=== PATIENT | male | born 1950 | race Caucasian/White ===

== ENCOUNTER 2020-02-25 09:44 | Outpatient (CLI) | payer MEDICARE, OTHER, SELFPAY ==
--- NOTE | 2020-02-25 09:45 | ECG_ITS ---
Measurements Intervals [place] Rate: 78 P: 53 AL: 180 QRS: 28 QRSD: 97 T: 36 QT: 387 QTc: 442 Interpretive Statements SINUS RHYTHM NORMAL ECG Electronically Signed On 02-25-2020 11:12:34 CDT by Riki Pratt D.O.
[2020-02-25 11:02] LABS: Blood Urea Nitrogen 24 mg/dL (9-20); Calcium 9.3 mg/dL (8.4-10.2); Carbon Dioxide 29 mmol/L (22-30); Chloride 100 mmol/L (98-107); Estimated Glomerular Filt Rate 60; Glucose 222 mg/dL (75-110); Potassium 3.6 mmol/L (3.4-5.0); Sodium 139 mmol/L (137-145)
== END 2020-02-25 09:45 | disposition home or self-care (01) ==
LOC: ANHSURGERY 09:45
PROVIDERS: Anesthesiology; PCP Family Medicine; Visit Provider Otolaryngology
DX: Z01.818 Encounter for other preprocedural examination (principal); Z79.899 Other long term (current) drug therapy; I10 Essential (primary) hypertension
CPT/HCPCS: 36415; 80048; 93005

== ENCOUNTER 2020-02-26 00:34 | Outpatient (CLI) | payer MEDICARE, OTHER, SELFPAY ==
[2020-02-26 18:05] LABS: SARS-CoV-2 RNA PCR Negative
== END 2020-02-26 00:35 | disposition home or self-care (01) ==
LOC: ANHCOVIDDT 00:36
PROVIDERS: PCP Family Medicine; Visit Provider Otolaryngology
DX: Z01.818 Encounter for other preprocedural examination (principal); Z11.59 Encounter for screening for other viral diseases
CPT/HCPCS: 87635; C9803; U0003

== ENCOUNTER 2020-02-29 03:42 | Day surgery (SDC) | payer MEDICARE, OTHER, SELFPAY ==
[2020-02-29] VITALS (11 sets, daily range): BP systolic 145–175; BP diastolic 78–102; PULSE 53–71; RESP 13–18; TEMP 36.2–36.9; O2SAT 93–99
[2020-02-29] MEDS: OXYMETAZOLINE HCL 0.05% NAS 15 ML BTL (*BKC) 1 SPRAY NASAL (11:25)
[2020-02-29] MEDS: ACETAMINOPHEN 500 MG TABLET 1000 MG PO (11:25)
[2020-02-29] MEDS: LACTATED RINGERS 1,000 ML 30 ML IV CONT ×2 (11:30→15:13)
--- NOTE | 2020-02-29 11:37 | WPDANESEPPF ---
Anes - Initial Pre Proc Eval Procedure: Operation Date: 02/29/20 13:00 Proposed Procedures p Bilateral Frontal Sinusotomy, Bilateral Ethmoidectomy, Bilateral Maxillary Antrostomy, Bilateral Sphenoidotomy, Bilateral Turbinate Reduction With Fusion Protocol - Raymond Medrano MD s Bilateral Septoplasty - Raymond Medrano MD Date/Time: 02/29/20 11:37 Surgeon: Raymond Medrano MD Pre Op Diagnosis: Chronic Sinusitis, Deviated Sinustitis Patient Data Age: 69 Gender: M Height: Weight: Allergies Allergy/AdvReac Type Severity Reaction Status Date / Time strawberry AdvReac Unknown VOMITING Verified 02/24/20 13:44 latex AdvReac Redness of Verified 02/24/20 13:44 Skin Home Medications Medication Instructions Recorded Confirmed Type hydrochlorothiazide 25 mg DAILY 08/11/19 02/24/20 History aspirin [Aspir-81] 81 mg PO DAILY 02/24/20 02/24/20 History cholecalciferol (vitamin D3) 250 mcg PO DAILY 02/24/20 02/24/20 History lisinopril 20 mg PO DAILY 02/24/20 02/24/20 History [id number] acid-lutein [Centrum 1 tablet PO DAILY 02/24/20 02/24/20 History Silver] Patient hx anesthesia problems: none Family hx anesthesia problems: none PMFSH Past Medical History Medical History (Updated 08/27/19 @ 00:00 by Phillip Salinas) Amputation toe Partial left first Arthritis Bilateral cataracts Glaucoma HTN (hypertension) Left ACL tear Left rotator cuff tear Rectal polyp Spinal stenosis Tear of left meniscus as current injury Surgical History Surgical History (Updated 08/25/19 @ 22:35 by Darrin Amezcua) H/O bilateral cataract extraction H/O colonoscopy H/O lateral meniscus repair of left knee History of repair of anterior cruciate ligament of left knee History of surgical procedure on eye proper using laser Bilateral for glaucoma S/P left rotator cuff repair Family History Family History (Updated 04/15/14 @ 07:13 by DOCTOR UNKNOWN) Father Hypertension Family history of throat cancer Social History Social History (Updated 08/25/19 @ 22:38 by Darrin Amezcua) Smoking status: Former smoker Additional smoking assessment comments: 1 1/2PK/DAY FROM AGE 12-20 Alcohol intake: current Living arrangements: with family Gender identity (if verbalized by the patient): Male Spiritual care concerns: No Anes - Eval Final PreProcedure Day of Procedure 02/29/20 11:37 Patient weight: obese Heart: regular rate and rhythm Lungs: clear to auscultation Airway: Mallampati scale class II Neurological: alert and oriented Last oral intake: >/= 8 hours ASA classification: III Emergent: no Anesthetic plan: proceed Anesthesia type and monitoring: general ETT and standard monitoring Informed Consent: The patient's anesthetic plan and its attendant risks and benefits were discussed with the patient/family/POA. Questions were solicited and answers provided to the satisfaction of the patient/family/POA.
--- NOTE | 2020-02-29 13:19 | PM.IMHP ---
H&P: HPI History of Present Illness Chief complaint: Chronic Sinusitis, Deviated Sinustitis Narrative: Chapo Song is a 69 year old male with chronic sinusitis and nasal polyposos Review of Systems Review of Systems: All systems reviewed & are unremarkable except as noted in HPI and below PMFSH Past Medical History Medical History Amputation toe Partial left first Arthritis Bilateral cataracts Glaucoma HTN (hypertension) Left ACL tear Left rotator cuff tear Rectal polyp Spinal stenosis Tear of left meniscus as current injury Surgical History Surgical History H/O bilateral cataract extraction H/O colonoscopy H/O lateral meniscus repair of left knee History of repair of anterior cruciate ligament of left knee History of surgical procedure on eye proper using laser Bilateral for glaucoma S/P left rotator cuff repair Family History Family History Father Hypertension Family history of throat cancer Social History Social History Smoking status: Former smoker Additional smoking assessment comments: 1 1/2PK/DAY FROM AGE 14-20 Alcohol intake: current Living arrangements: with family Gender identity (if verbalized by the patient): Male Spiritual care concerns: No Meds Home Medications and Allergies Home Medications Medication Instructions Recorded Confirmed Type hydrochlorothiazide 25 mg DAILY 08/11/19 02/29/20 History aspirin [Aspir-81] 81 mg PO DAILY 02/24/20 02/29/20 History cholecalciferol (vitamin D3) 250 mcg PO DAILY 02/24/20 02/29/20 History lisinopril 20 mg PO DAILY 02/24/20 02/29/20 History [id number] acid-lutein [Centrum 1 tablet PO DAILY 02/24/20 02/29/20 History Silver] Allergies Allergy/AdvReac Type Severity Reaction Status Date / Time strawberry AdvReac Unknown VOMITING Verified 02/29/20 11:39 latex AdvReac Redness of Verified 02/29/20 11:39 Skin Vital Signs Vital Signs - 24 hr 02/29/20 11:35 Temperature 36.9 C Pulse Rate 69 Respiratory Rate 18 Blood Pressure 145/78 H Pulse Oximetry 96 Exam Narrative: Exam Narrative: chronic sinusitis, nasal polyposis Assessment and Plan Assessment and plan (1) Chronic sinusitis: Code(s): J32.9 - Chronic sinusitis, unspecified Status: Acute Assessment and Plan: Chronic sinusitis, plan for bilateral frontal, ethmoid, sphenoid and maxillary surgery. Septoplasty, turbinoplasty, under image guidance. Refer to outpatient H&P for full details.
[2020-02-29] MEDS: ceFAZolin 2 GM/D5W 50 ML 2 GM/50 ML BAG IVPB (13:41)
[2020-02-29] MEDS: LIDO 1%/EPINEPHRINE 1:100,000 20 ML VIAL 6 ML INFILTRATE (13:52)
--- NOTE | 2020-02-29 15:12 | PM.PROC ---
Procedure Note - Detailed Date of procedure: 02/29/20 Pre-op diagnosis: Chronic Sinusitis, Deviated Sinustitis Chronic sinusitis, nasal polyposis and turbinate hypertrophy Post-op diagnosis: same Procedure performed: Bilateral maxillary antrostomy, total ethmoidectomy, sphenoidotomy, frontal sinusotomy, right sumit bullosa, bilateral turbinoplasty Description of procedure: On the date of procedure the patient was met in the preoperative area and risk and benefits of the procedure reviewed with the patient as documented in the H&P and they elected to proceed with surgery. Patient was brought back to the operating room by the anesthesia team and underwent general endotracheal anesthesia. Once an adequate plane of anesthesia was obtained a timeout was performed to assure the patient identification the patient here to be performed were correct. They were.The patient was then prepped and draped in the normal fashion for endoscopic sinus surgery. The diffusion image guidance system was calibrated and used for the entire case. Afrin-soaked pledgets were placed in the nasal cavities bilaterally. The entire case was performed under endoscopic visualization. Nasal endoscopy was performed at the beginning of the case. 1% lidocaine with 1:100,000 epinephrine was then injected into the root of the middle turbinate and lateral nasal wall. Attention was first directed towards the left side. The middle turbinate was medialized and the osteomeatal complex was identified with a valerie probe. Using a 90 degree backbiter, the uncinate process was reflected anteriorly and removed using a combination of sharp and powered dissection. The maxillary antrostomy was then created and widened by identifying the natural ostia and opening the sinus with straight tapan-cut forceps, backbiter, and microdebrider. Massive polyp tissue encountered was removed with microdebrider, involving the middle turbinate, superior turbinate and extending to the nasopharynx. Polyp tissue encountered within the maxillary sinus. Continuing with the microdebrider, the anterior ethmoid bulla was opened. Careful dissection was carried out posteriorly, through the basal lamella and posterior ethmoid cells until the sphenoid rostrum was identified. A Jonathan suction bluntly identified the sphenoid os and the opening was widened with microdebrider and mushroom punch to 5mm. Polyp disease was removed from the ethmoid and sphenoid. Using an image guided curved suction as well as J-curette, the posterior most ethmoid cell was identified and the ethmoids were bluntly fractured and dissected from posterior to anterior along the base of the skull. The remaining bone fragments were removed with appropriate curved instruments and microdebrider. The frontal recess was identified, with gross polyp disease obstructing and removed. Image guided seeker confirmed proper identification of the frontal recess. Next, The right maxillary antrostomy, ethmoidectomy, sphenoidotomy and frontal sinusotomy were carried out in identical fashion with findings of gross polyp disease throughout. No clinical evidence of CSF throughout the case. With all sinuses opened and no remaining polyp disease appreciated, nasopore packing was placed in the ethmoid acvities bilaterally. Hemostasis was ensured. Lastly, the bilateral inferior turbiantes were reduced submucosally using 2mm microdebrider and then outfractured with a sayer elevator. This significantly opened the airway. At this point, the procedure was concluded. Care the patient was transferred back to the anesthesia team and the patient was awoke in the operating room and transferred back to the PACU in stable condition. Raymond Medrano M.D. Anesthesia: GETA Surgeon: Raymond Medrano MD Estimated blood loss (mL): 100 Drains: No Packing: Yes (bilateral nasopore) Pathology: yes Complications: No immediate complications Condition: stable Disposition: PACU Findings: Left worse than right
--- NOTE | 2020-02-29 17:26 | SUR.PHASEII ---
Anesthesia aware of elevated BP per [facility].
== END 2020-02-29 17:32 | disposition home or self-care (01) ==
PROVIDERS: PCP Family Medicine; Visit Provider Otolaryngology
PROC: (CPT 31256; principal; 2020-02-29 13:00)
DX: J32.9 Chronic sinusitis, unspecified (principal); J34.3 Hypertrophy of nasal turbinates; D14.0 Benign neoplasm of middle ear, nasal cavity and accessory sinuses; I10 Essential (primary) hypertension; H40.9 Unspecified glaucoma; Z79.82 Long term (current) use of aspirin; Z87.891 Personal history of nicotine dependence; E66.9 Obesity, unspecified
CPT/HCPCS: 31256; 31257; 31253; 30140; 61782; 31240; 88305; A9270; J0330; J0461; J0690; J1100; J2250; J2370; J2405; J2704; J3010; J7120

== ENCOUNTER 2020-11-20 03:53 | Emergency (ER) | payer MEDICARE, OTHER, SELFPAY ==
--- NOTE | ~2020-11-20 | CT_ITS ---
EXAMINATION: CT abdomen pelvis wo con DATE: 11/20/2020 06:29 INDICATION: Left flank pain TECHNIQUE: Computed tomography (CT) of the abdomen and pelvis was performed without intravenous contr ast. Automated exposure control and iterative reconstruction technique were employed. Exam dose: 146 1.03 mGy-cm total exam DLP. COMPARISON: 08/25/[address] abdomen pelvis FINDINGS: There is mild atelectasis at the lung bases. Normal heart size. No pericardial or pleural effusion. The liver, gallbladder, spleen, pancreas, and adrenal glands are unremarkable on this limited noncont rast examination. 4 mm distal left ureteral calculus is causing moderate left hydroureteronephrosis as well as left per inephric and periureteral stranding. Mild nonobstructive left nephrolithiasis. No right urinary tract calculus or right-sided hydroureteronephrosis. The urinary bladder is unremark able except for mild diffuse thickening of the urinary bladder wall, likely secondary to prostatomega ly. Mild prostate calcification. Diverticulosis of the sigmoid colon; no CT evidence of diverticulitis. No bowel obstruction, bowel wa ll thickening, pneumatosis or intraperitoneal free air. Normal appendix. There is atherosclerotic calcification of the abdominal aorta and aortic branches but no abdominal ao rtic aneurysm. No intraperitoneal or retroperitoneal or pelvic mass lesion or adenopathy or ascites. Bilateral renal cysts, measuring up to 4.6 cm on the left. Small fat-containing umbilical and left inguinal hernias. IMPRESSION: 4 mm obstructing distal left ureteral calculus with moderate left hydroureteronephrosis Mild nonobstructive left nephrolithiasis Bilateral renal cysts Prostatomegaly with associated thickening of the urinary bladder wall Diverticulosis of the sigmoid colon; no CT evidence of diverticulitis Reviewed, dictated and finalized at [facility]. Reviewed, dictated and finalized at [facility].
[2020-11-20 03:57] VITALS: BP 167/92; PULSE 55; RESP 18; TEMP 35.3; O2SAT 99
[2020-11-20 04:26] LABS: Basophils Absolute Auto 0.1 K/mm3 (0.0-0.1); Basophils Percent Auto 0.8 % (0.2-1.2); Eosinophils Absolute Auto 0.2 K/mm3 (0-0.3); Eosinophils Percent Auto 1.8 % (0-4.4); Hematocrit 43.2 % (42.0-52.0); Hemoglobin 15.1 g/dL (14.0-18.0); Immature Granulocyte Absolute 0.08 K/mm3 (0.00-0.031); Immature Granulocyte Percent A 0.6 % (0-0.5); Lymphocytes Absolute Auto 2.54 K/mm3 (0.9-3.2); Lymphocytes Percent Auto 19.6 % (18.3-44.2); Mean Corpuscular Hemoglobin 33.3 pg (26-34); Mean Corpuscular Volume 95.4 fl (80-100); Mean Platelet Volume 8.5 fl (7.4-10.4); Monocytes Absolute Auto 0.9 K/mm3 (0.1-0.6); Neutrophils Absolute Auto 9.1 K/mm3 (1.3-6.7); Neutrophils Percent Auto 70.2 % (45.5-73.1); Platelet Count Result 204 k/mm3 (150-375); Red Blood Count 4.53 M/mm3 (4.6-6.20); Red Cell Distribution Width 12.4 % (11.5-14.5)
[2020-11-20 04:30] LABS: Add Urine Microscopic? YES; Appearance Urine Cloudy (Clear); Bilirubin Urine Negative (Negative); Blood Urine 3+ (Negative); Color Urine Yellow (Yellow); Glucose Urine UA Negative (Negative); Ketones Urine Negative (Negative); Leukocyte Esterase Ur Negative LEU/UL (Negative); Mucus Urine Few /lpf; Nitrate Urine Negative (Negative); Protein Urine 2+ mg/dL (Negative); RBC Urine >75 /hpf (0-2); Specific Grav Ur 1.024 (1.001-1.035); Squamous Epithelial Cell Urine Rare /hpf (Few); Urobilinogen Urine Negative mg/dL (<2.0); WBC Urine 0-3 /hpf
[2020-11-20 04:39] LABS: Anion Gap 10 mmol/L (8-16); Blood Urea Nitrogen 25 mg/dL (9-20); Calcium 9.7 mg/dL (8.4-10.2); Carbon Dioxide 29 mmol/L (22-30); Chloride 102 mmol/L (98-107); Estimated CRCL calculation 56 ml/min; Estimated Glomerular Filt Rate 47; Glucose 186 mg/dL (75-110); Potassium 3.3 mmol/L (3.4-5.0); Sodium 141 mmol/L (137-145)
--- NOTE | 2020-11-20 05:33 | ED.ABDPAIN ---
HPI - Abdominal Pain General Chief Complaint: Abdominal Pain <Kirk York MD - Last Filed: 11/20/20 05:35> Stated Complaint: left flank pain <Kirk York MD - Last Filed: 11/20/20 05:35> Time Seen by Provider: 11/20/20 05:27 <Kirk York MD - Last Filed: 11/20/20 05:35> Source: patient <Kirk York MD - Last Filed: 11/20/20 05:35> Mode of arrival: ambulatory <Kirk York MD - Last Filed: 11/20/20 05:35> Limitations: no limitations <Kirk York MD - Last Filed: 11/20/20 05:35> History of Present Illness HPI narrative: Patient 70 years old white male presents with left flank pain radiating to left lower quadrant started at midnight which is 5 hours ago. Associated with nausea. Patient had similar symptoms secondary to kidney stone on the right side. Patient also reporting frequent urination. Patient denies any fever, chills, vomiting, chest pain or shortness of breath. <Kirk York MD - Last Filed: 11/20/20 05:35> Related Data Home Medications: Home Medications Medication Instructions Recorded Confirmed hydrochlorothiazide 25 mg DAILY 08/11/19 02/29/20 Centrum Silver 1 tablet PO DAILY 02/24/20 02/29/20 aspirin [Aspir-81] 81 mg PO DAILY 02/24/20 02/29/20 cholecalciferol (vitamin D3) 250 mcg PO DAILY 02/24/20 02/29/20 lisinopril 20 mg PO DAILY 02/24/20 02/29/20 atorvastatin 11/20/20 fluticasone propion-salmeterol INHALATION 11/20/20 [Advair Diskus] <MD Noelle Castro Last Filed: 11/20/20 05:35> Allergies/Adverse Reactions: Allergies Allergy/AdvReac Type Severity Reaction Status Date / Time strawberry AdvReac Unknown VOMITING Verified 11/20/20 04:01 latex AdvReac Redness of Verified 11/20/20 04:01 Skin <MD Noelle Castro Last Filed: 11/20/20 05:35> Review of Systems Review of Systems: Narrative: CONSTITUTIONAL: Denies fever, chills, or sweats. EYES: Denies visual changes, redness, or discharge. ENT: Denies rhinorrhea, congestion, sore throat, or otalgia. CARDIOVASCULAR: Denies chest pain, palpitations, or edema. RESPIRATORY: Denies cough or dyspnea. GASTROINTESTINAL: Denies abdominal pain, nausea, vomiting, or diarrhea. GENITOURINARY: Denies dysuria or hematuria. SKIN: Denies rash or itching. MUSCULOSKELETAL: Denies back pain, joint pain, or myalgia. NEUROLOGIC: Denies headache, numbness, or weakness. PSYCHIATRIC: Denies anxiety or depression. <Kirk York MD - Last Filed: 11/20/20 05:35> [facility] Past Medical History Medical History: Medical History (Updated 11/20/20 @ 10:28 by Musa Hillman MD) Amputation toe Partial left first Arthritis Bilateral cataracts Glaucoma HTN (hypertension) Left ACL tear Left rotator cuff tear Rectal polyp Spinal stenosis Tear of left meniscus as current injury <Kirk York MD - Last Filed: 11/20/20 05:35> Surgical History Surgical History: Surgical History H/O bilateral cataract extraction H/O colonoscopy H/O lateral meniscus repair of left knee History of repair of anterior cruciate ligament of left knee History of surgical procedure on eye proper using laser Bilateral for glaucoma S/P left rotator cuff repair <Kirk York MD - Last Filed: 11/20/20 05:35> Family History Family History: Family History Father Hypertension Family history of throat cancer <Kirk York MD - Last Filed: 11/20/20 05:35> Social History Social History: Social History Smoking status: Former smoker Additional smoking assessment comments: 1 1/2PK/DAY FROM AGE [age] Alcohol intake: current Gender identity (if verbalized by the patient): Male Sexual Orientation (if Verbalized by the Patient): Straight or Heterosexual Spiritual care concerns: No <Kirk York MD - Last Filed: 11/20/20 05:35> Ex
[2020-11-20] MEDS: SODIUM CHLORIDE 0.9% IV 1,000 ML 999 ML IV CONT ×2 (05:42→08:03)
[2020-11-20] MEDS: HYDROmorphone HCL INJ (*CRX) 1 MG/ML SYR 0.5 MG IV PUSH ×2 (05:42→06:51)
[2020-11-20] MEDS: ONDANSETRON INJ 4 MG/2 ML VIAL IV PUSH (05:42)
[2020-11-20 06:00] VITALS: BP 154/85; PULSE 60; RESP 18; O2SAT 99
[2020-11-20 06:56] VITALS: BP 147/75; PULSE 58; RESP 18; O2SAT 99
[2020-11-20] MEDS: HYDROmorphone HCL INJ (*CRX) 1 MG/ML SYR IV PUSH (08:03)
[2020-11-20 09:08] VITALS: BP 153/86; PULSE 62; RESP 17; O2SAT 97
[2020-11-20] MEDS: KETOROLAC 30 MG/ML VIAL (*BKC) IV PUSH (09:36)
[2020-11-20 10:37] VITALS: BP 132/78; PULSE 78; RESP 18; O2SAT 99
--- NOTE | 2020-11-20 10:50 | WPDURCON ---
Assessment and Plan Assessment and plan (1) Ureterolithiasis: Code(s): N20.1 - Calculus of ureter Status: Acute Assessment and Plan: 70M with 3 mm left UVJ stone - we discussed either trial of MET or URS/?LL/stent. I told him he has about a 75% chance of passing this stone but that could take days or weeks. we discussed the procedure of URS including stent irritation. toradol has significantly relieved his pain and he wants to try and pass the stone. DC with tamsulosin, strainer, pain meds, and f/u with our office here in 1-2 weeks. discussed return precautions including fever and unrelenting pain. Urology Consult Note HPI Date Seen: 11/20/20 Primary Care Provider: Macarena De Los SantosMD Consult Narrative Narrative: Chapo Song is a 70 year old male who passed a kidney stone in 2018 here with left flank pain. No other significant urologic history. Voids well at baseline. Severe left flank--> groin pain started overnight. Was unable to be controlled in ED until toradol administered. WBC 14, creat 1.5. Vitals okay. CT shows a 3-4 mm left UVJ stone and no other stones; mild hydro. Review of Systems Review of Systems: All systems reviewed & are unremarkable except as noted in HPI and below PMFSH Past Medical History Medical History (Updated 11/20/20 @ 10:28 by Musa Hillman MD) Amputation toe Partial left first Arthritis Bilateral cataracts Glaucoma HTN (hypertension) Left ACL tear Left rotator cuff tear Rectal polyp Spinal stenosis Tear of left meniscus as current injury Surgical History Surgical History H/O bilateral cataract extraction H/O colonoscopy H/O lateral meniscus repair of left knee History of repair of anterior cruciate ligament of left knee History of surgical procedure on eye proper using laser Bilateral for glaucoma S/P left rotator cuff repair Family History Family History Father Hypertension Family history of throat cancer Social History Social History Smoking status: Former smoker Additional smoking assessment comments: 1 1/2PK/DAY FROM AGE 14-20 Alcohol intake: current Gender identity (if verbalized by the patient): Male Sexual Orientation (if Verbalized by the Patient): Straight or Heterosexual Spiritual care concerns: No Meds Home Medications and Allergies Home Medications Medication Instructions Recorded Confirmed Type hydrochlorothiazide 25 mg DAILY 08/11/19 02/29/20 History Centrum Silver 1 tablet PO DAILY 02/24/20 02/29/20 History aspirin [Aspir-81] 81 mg PO DAILY 02/24/20 02/29/20 History cholecalciferol (vitamin D3) 250 mcg PO DAILY 02/24/20 02/29/20 History lisinopril 20 mg PO DAILY 02/24/20 02/29/20 History hydrocodone-acetaminophen 1 tablet PO Q4H PRN #20 tablet 02/29/20 Rx atorvastatin 11/20/20 History fluticasone propion-salmeterol INHALATION 11/20/20 History [Advair Diskus] hydrocodone-acetaminophen 1 tablet PO Q6H PRN #20 tablet 11/20/20 Rx tamsulosin [Flomax] 0.4 mg PO DAILY #7 cap 11/20/20 Rx Allergies Allergy/AdvReac Type Severity Reaction Status Date / Time strawberry AdvReac Unknown VOMITING Verified 11/20/20 04:01 latex AdvReac Redness of Verified 11/20/20 04:01 Skin Vital Signs Vital Signs - 24 hr 11/20/20 03:57 11/20/20 06:00 11/20/20 06:56 Temperature 35.3 C L Pulse Rate 55 L 60 58 L Respiratory Rate 18 18 18 Blood Pressure 167/92 H 154/85 H 147/75 H Pulse Oximetry 99 99 99 11/20/20 09:08 11/20/20 10:37 Temperature Pulse Rate 62 78 Respiratory Rate 17 18 Blood Pressure 153/86 H 132/78 Pulse Oximetry 97 99 Exam Narrative: Exam Narrative: A&O x3, mild distress, cooperative and pleasant, no focal neuro deficits, obese without mass, easy and non labored respirations, no rashes Results Labs CBC & Chem 7: 11/20
== END 2020-11-20 10:41 | disposition home or self-care (01) ==
PROVIDERS: Emergency Medicine; Emergency Provider Family Medicine; PCP Family Medicine
DX: N13.2 Hydronephrosis with renal and ureteral calculous obstruction (principal); M19.90 Unspecified osteoarthritis, unspecified site; H40.9 Unspecified glaucoma; I10 Essential (primary) hypertension; Z87.19 Personal history of other diseases of the digestive system; Z98.42 Cataract extraction status, left eye; Z98.41 Cataract extraction status, right eye; Z89.412 Acquired absence of left great toe; Z87.891 Personal history of nicotine dependence; N28.1 Cyst of kidney, acquired; K57.30 Diverticulosis of large intestine without perforation or abscess without bleeding; N40.0 Benign prostatic hyperplasia without lower urinary tract symptoms; Z87.442 Personal history of urinary calculi; Z79.82 Long term (current) use of aspirin
CPT/HCPCS: 36415; 74176; 80048; 81001; 85025; 96361; 96374; 96375; 96376; 99284; J1170; J1885; J2405; J7030

== ENCOUNTER 2021-12-10 08:48 | Outpatient (CLI) | payer MEDICARE, OTHER, SELFPAY ==
--- NOTE | ~2021-12-10 | MR_ITS ---
EXAMINATION: MR knee RT wo con DATE: 12/10/2021 09:30 INDICATION: Right knee pain TECHNIQUE: Magnetic resonance imaging (MRI) of the right knee was performed without intravenous contr ast. Sequences included coronal PD-weighted FSE, coronal PD-weighted FS FSE, sagittal T2-weighted FS E, sagittal PD-weighted FS FSE and axial PD weighted fat saturated FSE. COMPARISON: None. FINDINGS: Medial compartment: Complex tear involving the posterior body and posterior horn of the medial meniscus which involves shravan th the free edge and inferior articular surface. There is subluxation of a small flap tear at the pos terior body which extends short distance inferiorly into the gutter along the medial margin of the me dial tibial plateau. Shallow chondral surface irregularity along the central weightbearing medial fem oral condyle. Remaining cartilage is normal. Lateral compartment: Lateral meniscus is normal. Small region of partial-thickness chondral fissuring involving up to 50% the cartilage thickness at the junction of the anterior to central weightbearing lateral femoral cond yle. Remaining cartilage is normal. Patellofemoral compartment: Chondral ulceration and deep fissuring at the medial trochlea with minimal underlying cortical irregu larity and small focus of edema-like subarticular signal change. Additional partial thickness chondra l ulceration without degenerative subchondral changes at the lateral trochlea. Patellar cartilage is normal. Ligaments and tendons: Anterior and posterior cruciate ligaments are normal. The fibular collateral ligament is normal. Ther e is mild thickening and mild increased signal of the proximal medial collateral ligament without samuel rounding edema consistent with mild scarring related to chronic sprain. The extensor mechanism is nor mal. The visualized medial and lateral hamstring tendons as well as the iliotibial band are normal. Fluid: Small right knee joint effusion. No loose osteochondral bodies identified. Osseous/other: Bone alignment is normal. No fracture or pathologic marrow replacing process. There are couple small low signal intensity bone islands in the medial femoral condyle. No fracture or pathologic marrow rep lacing process. IMPRESSION: 1. Complex medial meniscal tear. 2. 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 Reviewed, dictated and finalized at [facility]. IMPRESSION: 1. Complex medial meniscal tear. 2. 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
== END 2021-12-10 08:49 | disposition home or self-care (01) ==
LOC: ANHIMG 08:51
PROVIDERS: PCP Family Medicine; Visit Provider Nurse Practitioner
DX: S83.231A Complex tear of medial meniscus, current injury, right knee, initial encounter (principal); X58.XXXA Exposure to other specified factors, initial encounter; M17.11 Unilateral primary osteoarthritis, right knee
CPT/HCPCS: 73721

== ENCOUNTER 2022-01-04 08:02 | Outpatient (CLI) | payer MEDICARE, OTHER, SELFPAY ==
--- NOTE | 2022-01-04 08:17 | ECG_ITS ---
Measurements Intervals [place] Rate: 69 P: 48 WA: 186 QRS: 25 QRSD: 91 T: 36 QT: 401 QTc: 431 Interpretive Statements SINUS RHYTHM BASELINE ARTIFACT- V4-V5 NORMAL ECG Electronically Signed On 01-04-2022 9:24:54 CDT by Riki Pratt D.O.
[2022-01-04 09:06] LABS: Anion Gap 10 mmol/L (8-16); Blood Urea Nitrogen 24 mg/dL (9-20); Calcium 9.2 mg/dL (8.4-10.2); Carbon Dioxide 32 mmol/L (22-30); Chloride 101 mmol/L (98-107); Estimated Glomerular Filt Rate 60; Glucose 168 mg/dL (65-110); Potassium 3.9 mmol/L (3.4-5.0); Sodium 143 mmol/L (137-145)
== END 2022-01-04 08:03 | disposition home or self-care (01) ==
LOC: ANHSURGERY 08:06
PROVIDERS: Anesthesiology; PCP Family Medicine; Visit Provider Orthopaedic Surgery
DX: Z01.818 Encounter for other preprocedural examination (principal); I10 Essential (primary) hypertension
CPT/HCPCS: 36415; 80048; 93005

== ENCOUNTER 2022-01-08 00:35 | Day surgery (SDC) | payer MEDICARE, OTHER, SELFPAY ==
--- NOTE | 2022-01-03 09:45 | PC.NURSE ---
Report to the Outpatient Waiting Room, entrance under the green pavilion located off [facility], at time _0600 on date _01/08/22 . OR Time: __07 . - You and your visitor will be asked a series of questions to screen for COVID 19 for your protection. - Only one visitor is allowed at this time. - The patient visitor is requested to leave or wait in car when not with patient. - A mask is required within the hospital. Patients may have clear liquids (water, carbonated beverages, clear teas, apple juice) until 3 hours prior to surgery with a maximum of 20 ounces. - No food from midnight until time of surgery - Infants may have breast milk until 4 hours before surgery, infant formula 6 hours prior to surgery. - Children will be allowed to drink immediately following surgery. If applicable, please bring a bottle or sippy cup to assist with drinking. Juice, water, soda, and popsicles are readily available. For infants on formula, please bring formula the day of surgery. Pacifiers are allowed. Take the following medications with a SIP of water the morning of surgery: __NONE Medications to discontinue per physician ____ALL VITAMINS AND SUPPLEMENTS 3 DAYS PRE OP Date to take last dose___01/04/22 Please no make-up, nail kiswahili, hairspray, perfume, deodorant, or body powder the day of surgery. No jewelry (including any body piercings) or valuables the day of surgery, leave them at home. Please take a shower or bath the night before, or the morning of, surgery with an antibacterial soap. Wear comfortable, loose fitting clothing. Children are encouraged to wear pajamas. - Jewelry must be removed prior to entering the operating room. Rings and piercings that are not removed may be cut off. - The hospital will not accept responsibility for valuables. - Please leave all valuables, including medications, at home the day of surgery. If you are going home after surgery, a licensed [employer] driver must drive you home. - NO public transportation without another adult. - We recommend that an adult stay with you for 24 hours following discharge. - We also recommend that you do not drive, make important decision, drink alcoholic beverages, or take any drugs that were not prescribed by your health care provider for at least 24 hours after your discharge time. For Pediatric surgeries, we recommend two adults accompany the child home (only one inside the building at this time). Follow any additional instructions given to you from your surgeon. If you or anyone in your household have experienced Covid symptoms in the past week, please notify your surgeon or the nurse liaison at the phone number below for possible testing. Telephone instructions given to __PATIENT and asked if any additional questions and then verbalized understanding. Patient advised to call surgeon office or pre surgery nurse liaison [phone] if any additional questions.
[2022-01-03 09:50] VITALS: BMI 34.6
--- NOTE | 2022-01-07 21:28 | WPDANESEPPF ---
Anes - Initial Pre Proc Eval Procedure: Operation Date: 01/08/22 10:30 Proposed Procedures p Right Knee Arthroscopy, with Meniscectomy - Vlad Toro MD Date/Time: 01/07/22 21:28 Surgeon: Vlad Toro MD Pre Op Diagnosis: right knee medial meniscus tear Patient Data Age: 71 Gender: M Height: 1.83 m Weight: 115.7 kg Allergies Allergy/AdvReac Type Severity Reaction Status Date / Time strawberry Allergy Unknown VOMITING Verified 01/08/22 08:57 latex Allergy Redness of Verified 01/08/22 08:57 Skin Home Medications Medication Instructions Recorded Confirmed Type hydrochlorothiazide 25 mg DAILY 08/11/19 01/08/22 History Centrum Silver 1 tablet PO DAILY 02/24/20 01/08/22 History cholecalciferol (vitamin D3) 250 mcg PO DAILY 02/24/20 01/08/22 History lisinopril 20 mg PO DAILY 02/24/20 01/08/22 History atorvastatin 10 mg PO QAM 11/20/20 01/08/22 History fluticasone propion-salmeterol 1 ea INHALATION PRN PRN 11/20/20 01/08/22 History [Advair Diskus] vitamin B12 500 mcg-folic acid 400 1 tablet PO DAILY 12/13/21 01/08/22 History mcg tablet acetaminophen [Tylenol Arthritis 1,300 mg PO Q12H PRN 01/03/22 01/08/22 History Pain] Patient hx anesthesia problems: none Family hx anesthesia problems: none Results Review: All pre-operative results and documents have been reviewed as part of the pre-operative evaluation. [facility] Past Medical History Medical History (Updated 01/07/22 @ 21:29 by Uriah Merchant MD) Allergies Amputation of great toe Amputation toe Partial left first Arthritis Asthma Bilateral cataracts Glaucoma HTN (hypertension) Hyperlipidemia Left ACL tear Left rotator cuff tear Obesity Rectal polyp Spinal stenosis Tear of left meniscus as current injury Tear of medial meniscus of right knee Surgical History Surgical History H/O bilateral cataract extraction H/O colonoscopy H/O lateral meniscus repair of left knee History of repair of anterior cruciate ligament of left knee History of sinus surgery History of surgical procedure on eye proper using laser Bilateral for glaucoma S/P left rotator cuff repair Family History Family History Father Hypertension Family history of throat cancer Family history of alcoholism Mother Asthma Hypertension Heart disease Sibling Asthma Hypertension Social History Social History Smoking packs per day: 1.5 Smoking cigarettes per day: 30.0 Years smoked: 8 Smoking pack-years: 12.00 Smoking status: Former smoker Tobacco type: cigarettes Smoking end date: 08/19/72 Additional smoking assessment comments: 1 1/2PK/DAY FROM AGE 14-20 Alcohol intake: current Alcohol use details: ONE DRINK PER MONTH Substance use: never Living arrangements: with family Gender identity (if verbalized by the patient): Male Sexual Orientation (if Verbalized by the Patient): Straight or Heterosexual Spiritual care concerns: No Anes - Eval Final PreProcedure Day of Procedure 01/07/22 21:28 Patient weight: obese Heart: regular rate and rhythm Lungs: clear to auscultation and normal air movement Airway: Mallampati scale class II Neurological: alert and oriented Last oral intake: >/= 8 hours ASA classification: III Emergent: no Anesthetic plan: proceed Anesthesia type and monitoring: general LMA Results Review: All pre-operative results and documents have been reviewed as part of the pre-operative evaluation. Informed Consent: The patient's anesthetic plan and its attendant risks and benefits were discussed with the patient/family/POA. Questions were solicited and answers provided to the satisfaction of the patient/family/POA.
[2022-01-08] VITALS (9 sets, daily range): BP systolic 144–163; BP diastolic 69–82; PULSE 49–77; RESP 12–16; TEMP 36.3–36.4; O2SAT 97–100
[2022-01-08] MEDS: ACETAMINOPHEN 500 MG TABLET 1000 MG PO (09:18)
[2022-01-08] MEDS: LACTATED RINGERS 1,000 ML 30 ML IV CONT ×2 (09:24→12:59)
[2022-01-08] MEDS: KETOROLAC 15 MG/ML VIAL (*BKC) IV PUSH (09:30)
--- NOTE | 2022-01-08 09:52 | WPDHPUPDATE1 ---
History and Physical Update Update Date/Time: 01/08/22 09:52 History and Physical has been reviewed, including an updated exam of the patient. There are NO changes in the patient's condition. Risks, benefits, and alternatives have been discussed and questions answered. Patient agrees to proceed with procedure.
[2022-01-08] MEDS: ceFAZolin 2 GM/D5W 50 ML 2 GM/50 ML BAG IVPB (10:51)
--- NOTE | 2022-01-08 11:57 | W.PM.PROC2 ---
Procedure Note - Detailed Date of Procedure 01/08/22 Pre-op Diagnosis right knee medial meniscus tear Post-op Diagnosis Other ( right knee medial and lateral meniscal tears) Procedure Performed right knee arthroscopy, partial medial and lateral meniscectomy Surgeon Vlad Toro MD Anesthesia General Description of Procedure The patient was identified and proper site identified and he was taken to the operating room, transferred to the OR table placing her supine taking care to pad the torso and extremities. After general anesthetic induction and intubation, a nonsterile tourniquet was placed high on the right thigh but was not inflated. The right lower extremity was positioned, prepped and draped in usual sterile fashion. 10 cc of 1% lidocaine was injected into the subcutaneous tissue in the area of the portals at start of the procedure, and an additional 10 at the end. The portals were established and the arthroscopy was carried out. articular cartilage in all three compartments showed signs of deterioration. There is grade 3 anteriorly and medially. Grade 2 and three laterally. There was complex fraying of the lateral meniscus which was debrided back to stable rim with basket forceps and shaver. There was also complex tearing of the medial meniscus posterior horn well into the midbody. The loose unstable bits were contoured back with stable rim using basket forceps and a shaver. There was a small medial plica which was rubbing over the medial femoral condyle and this was resected as well. Arthrocare Wand was used for intra-articular hemostasis. The knee was flushed with a copious amount of arthroscopic fluid and equipment was removed. Portals were closed with three O nylon suture and a sterile dressing was applied. He tolerated the procedure well, was awakened, extubated and taken to recovery area in stable condition. There were no known intraoperative complications. Estimated blood loss was negligible; he received perioperative antibiotics. Estimated Blood Loss 20 Tourniquet Time 0 Drains No Packing No Pathology None sent Complications No immediate complications Condition Stable Disposition PACU
[2022-01-08] MEDS: fentaNYL CITRATE INJ (*CRX) 100 MCG/2 ML VIAL 25 MCG IV PUSH ×6 (12:30→13:44)
[2022-01-08] MEDS: oxyCODONE HCL (*CRX) 5 MG TAB IR PO (13:24)
== END 2022-01-08 14:30 | disposition home or self-care (01) ==
PROVIDERS: PCP Family Medicine; Visit Provider Orthopaedic Surgery
PROC: (CPT 29870; principal; 2022-01-08 10:30)
DX: M23.221 Derangement of posterior horn of medial meniscus due to old tear or injury, right knee (principal); M19.90 Unspecified osteoarthritis, unspecified site; J45.909 Unspecified asthma, uncomplicated; I10 Essential (primary) hypertension; E78.5 Hyperlipidemia, unspecified; M48.00 Spinal stenosis, site unspecified; Z87.891 Personal history of nicotine dependence; E66.9 Obesity, unspecified; Z68.35 Body mass index [BMI] 35.0-35.9, adult
CPT/HCPCS: 29880; A9270; J0690; J1885; J2250; J3010; J7120

== ENCOUNTER 2022-01-18 14:21 | Emergency (ER) | payer MEDICARE, OTHER, SELFPAY ==
--- NOTE | 2022-01-18 14:33 | ED.SKABFB ---
HPI - Skin/Abscess/Foreign Bdy General Stated complaint: bruise on back of rt leg Time Seen by Provider: 01/18/22 14:32 Source: patient Mode of arrival: ambulatory Limitations: no limitations History of Present Illness HPI narrative: Mr. Song is a 71-year-old male patient presenting to the clinic today with complaints of a bruise to the back of his right thigh. He reports he first noticed this yesterday. He reports that he has been attending physical therapy and was working pretty hard work the back of his leg was hurting. States that he had knee arthroscopy surgery approximately 1 week ago and had not had any bruising until yesterday. He denies any pain or swelling in the right posterior thigh currently. He does take a baby aspirin daily Related Data Home Medications Medication Instructions Recorded Confirmed hydrochlorothiazide 25 mg tablet 25 mg DAILY 08/11/19 01/08/22 cholecalciferol (vitamin D3) 250 250 mcg PO DAILY 02/24/20 01/08/22 mcg (10,000 unit) tablet lisinopril 20 mg tablet 20 mg PO DAILY 02/24/20 01/08/22 multivit with min-folic 1 tablet PO DAILY 02/24/20 01/08/22 acid-lutein 400 mcg-250 mcg chewable tablet (Centrum Silver) atorvastatin 10 mg tablet 10 mg PO QAM 11/20/20 01/08/22 fluticasone 250 mcg-salmeterol 50 1 ea inhalation PRN PRN Shortness 11/20/20 01/08/22 mcg/dose blistr powdr for Of Breath inhalation (Advair Diskus) vitamin B12 500 mcg-folic acid 400 1 tablet PO DAILY 12/13/21 01/08/22 mcg tablet acetaminophen 650 mg 1,300 mg PO Q12H PRN Pain 01/03/22 01/08/22 tablet,extended release (Tylenol Arthritis Pain) Allergies Allergy/AdvReac Type Severity Reaction Status Date / Time strawberry Allergy Unknown VOMITING Verified 01/18/22 14:53 latex Allergy Redness of Verified 01/18/22 14:53 Skin Review of Systems Review of Systems: Pertinent positives per HPI. Patient denies any fever, chills, rash, headache, visual changes, dizziness, cough, runny nose, sore throat, shortness of breath, chest pain, palpitations, nausea, vomiting, diarrhea, constipation, abdominal pain, or any urinary issues. [facility] Past Medical History Medical History Allergies Amputation of great toe Amputation toe Partial left first Arthritis Asthma Bilateral cataracts Glaucoma HTN (hypertension) Hyperlipidemia Left ACL tear Left rotator cuff tear Obesity Rectal polyp Spinal stenosis Tear of left meniscus as current injury Tear of medial meniscus of right knee Surgical History Surgical History H/O bilateral cataract extraction H/O colonoscopy H/O lateral meniscus repair of left knee History of arthroscopy of right knee January 08, 2022 - medial and lateral partial meniscectomy History of repair of anterior cruciate ligament of left knee History of sinus surgery History of surgical procedure on eye proper using laser Bilateral for glaucoma S/P left rotator cuff repair Family History Family History Father Hypertension Family history of throat cancer Family history of alcoholism Mother Asthma Hypertension Heart disease Sibling Asthma Hypertension Social History Social History Smoking packs per day: 1.5 Smoking cigarettes per day: 30.0 Years smoked: 8 Smoking pack-years: 12.00 Smoking status: Former smoker Tobacco type: cigarettes Smoking end date: 08/19/72 Additional smoking assessment comments: 1 1/2PK/DAY FROM AGE 14-20 Alcohol intake: current Alcohol use details: ONE DRINK PER MONTH Substance use: never Gender identity (if verbalized by the patient): Male Sexual Orientation (if Verbalized by the Patient): Straight or Heterosexual Spiritual care concerns: No Comments At the time of my signature,
[2022-01-18 14:48] VITALS: BP 146/73; PULSE 87; RESP 18; TEMP 36.2; O2SAT 97
== END 2022-01-18 15:00 | disposition home or self-care (01) ==
PROVIDERS: Emergency Provider Nurse Practitioner Family
DX: R58 Hemorrhage, not elsewhere classified (principal); S70.11XA Contusion of right thigh, initial encounter; X58.XXXA Exposure to other specified factors, initial encounter; Z87.891 Personal history of nicotine dependence; M19.90 Unspecified osteoarthritis, unspecified site; J45.909 Unspecified asthma, uncomplicated; I10 Essential (primary) hypertension; H40.9 Unspecified glaucoma; E78.5 Hyperlipidemia, unspecified; E66.9 Obesity, unspecified; Z68.35 Body mass index [BMI] 35.0-35.9, adult; M48.00 Spinal stenosis, site unspecified; Z98.42 Cataract extraction status, left eye; Z89.412 Acquired absence of left great toe; Z89.411 Acquired absence of right great toe
CPT/HCPCS: 99211; G0463

== ENCOUNTER 2022-11-20 16:54 | Emergency (ER) | payer MEDICARE, OTHER, SELFPAY ==
[2022-11-20 17:01] VITALS: BP 135/82; PULSE 80; RESP 16; TEMP 36.2; O2SAT 95
--- NOTE | 2022-11-20 17:03 | ED.SKABFB ---
HPI - Skin/Abscess/Foreign Bdy General Chief complaint: Skin/Abscess/Foreign Body Stated complaint: RASH Time Seen by Provider: 11/20/22 17:04 Source: patient and RN notes reviewed History of Present Illness HPI narrative: Patient is 72-year-old male who presents to urgent care with complaints of poison benny to bilateral lower arms and to the right cheek. Patient states that he [place] his property Saturday and Saturday and it seems to have been getting worse over the last 24 hours. Denies any changes in vision. Patient has been using hydrocortisone. No other acute complaints. No acute distress noted. Patient aware of the plan of care. Some parts of this dictation were generated by voice recognition software and may contain typographical and/or grammatical inaccuracies. Related Data Home Medications Medication Instructions Recorded Confirmed hydrochlorothiazide 25 mg tablet 25 mg DAILY 08/11/19 11/20/22 cholecalciferol (vitamin D3) 250 250 mcg PO DAILY 02/24/20 11/20/22 mcg (10,000 unit) tablet lisinopril 20 mg tablet 20 mg PO DAILY 02/24/20 11/20/22 multivit with min-folic 1 tablet PO DAILY 02/24/20 11/20/22 acid-lutein 400 mcg-250 mcg chewable tablet (Centrum Silver) atorvastatin 10 mg tablet 10 mg PO QAM 11/20/20 11/20/22 fluticasone 250 mcg-salmeterol 50 1 ea inhalation PRN PRN Shortness 11/20/20 11/20/22 mcg/dose blistr powdr for Of Breath inhalation (Advair Diskus) vitamin B12 500 mcg-folic acid 400 1 tablet PO DAILY 12/13/21 11/20/22 mcg tablet ciclopirox 8 % topical solution 1 applic topical DIRECTED 11/20/22 11/20/22 desoximetasone 0.05 % topical cream 1 applic topical DIRECTED 11/20/22 11/20/22 rosuvastatin 5 mg tablet 5 mg PO DAILY 11/20/22 11/20/22 Allergies Allergy/AdvReac Type Severity Reaction Status Date / Time strawberry Allergy Unknown VOMITING Verified 11/20/22 16:59 latex Allergy Redness of Verified 11/20/22 16:59 Skin Review of Systems Review of Systems: CONSTITUTIONAL: Denies fever, chills, or sweats. EYES: Denies visual changes, redness, or discharge. ENT: Denies rhinorrhea, congestion, sore throat, or otalgia. CARDIOVASCULAR: Denies chest pain, palpitations, or edema. RESPIRATORY: Denies cough or dyspnea. GASTROINTESTINAL: Denies abdominal pain, nausea, vomiting, or diarrhea. GENITOURINARY: Denies dysuria or hematuria. SKIN: Reports of poison benny with itchiness and redness to bilateral lower arms, right hand, and right cheek MUSCULOSKELETAL: Denies back pain, joint pain, or myalgia. NEUROLOGIC: Denies headache, numbness, or weakness. All other systems reviewed are negative, except as documented in HPI. [facility] Past Medical History Medical History (Updated 11/20/22 @ 17:11 by SARAH Hernadez) Allergies Amputation of great toe Amputation toe Partial left first Arthritis Asthma Bilateral cataracts Glaucoma HTN (hypertension) Hyperlipidemia Left ACL tear Left rotator cuff tear Obesity Rectal polyp Spinal stenosis Tear of left meniscus as current injury Tear of medial meniscus of right knee Surgical History Surgical History (Updated 03/07/22 @ 08:17 by Vlad Toro MD) H/O bilateral cataract extraction H/O colonoscopy H/O lateral meniscus repair of left knee History of arthroscopy of right knee January 08, 2022 - medial and lateral partial meniscectomy History of repair of anterior cruciate ligament of left knee History of sinus surgery History of surgical procedure on eye proper using laser Bilateral for glaucoma S/P left rotator cuff repair Family History Family History Father Hypertension Family history of throat cancer Family history of alcoholism Mother Asthma Hypertension Heart disease Sibling Asthma Hypertension Social History Social History Smoking packs per day: 1.5 Smoking cigarettes per da
[2022-11-20] MEDS: predniSONE 20 MG TABLET 60 MG PO (17:10)
[2022-11-20 17:17] VITALS: BP 135/82; PULSE 80; RESP 16; TEMP 36.2; O2SAT 95
== END 2022-11-20 17:14 | disposition home or self-care (01) ==
PROVIDERS: Emergency Provider Nurse Practitioner Family; PCP Family Medicine
DX: L23.7 Allergic contact dermatitis due to plants, except food (principal); Z87.891 Personal history of nicotine dependence; M19.90 Unspecified osteoarthritis, unspecified site; J45.909 Unspecified asthma, uncomplicated; H40.9 Unspecified glaucoma; E78.5 Hyperlipidemia, unspecified; E66.9 Obesity, unspecified; Z68.35 Body mass index [BMI] 35.0-35.9, adult; M48.00 Spinal stenosis, site unspecified; Z98.42 Cataract extraction status, left eye; Z98.41 Cataract extraction status, right eye
CPT/HCPCS: 99213; G0463; J7512

== ENCOUNTER 2023-01-12 16:28 | Emergency (ER) | payer MEDICARE, OTHER, SELFPAY ==
--- NOTE | 2023-01-12 16:31 | ED.URI ---
HPI - URI/Sore Throat General Chief Complaint: Upper Respiratory Infection Stated Complaint: Cough,Shortness of Breath Time Seen by Provider: 01/12/23 16:30 Source: patient Mode of arrival: ambulatory Limitations: no limitations History of Present Illness HPI Narrative: Patient is a 9-year-old male that presents with asthma exacerbation. Patient had albuterol and Advair filled but pharmacy is out of nebulized albuterol. Patient was told to go to local pharmacy but they would not fill albuterol for nebulizer without a script. Patient's primary care office is currently closed. Patient also reports a week and half ago he started having coughing fits and the start of his asthma exacerbation. Patient reports mild congestion. States on Saturday he felt like he got hit by a bus and was having fevers, symptoms have slightly improved. Does not take any allergy medicine and has not taken anything for symptoms other than his albuterol and Advair. Related Data Home Medications Medication Instructions Recorded Confirmed hydrochlorothiazide 25 mg tablet 25 mg DAILY 08/11/19 01/12/23 cholecalciferol (vitamin D3) 250 250 mcg PO DAILY 02/24/20 01/12/23 mcg (10,000 unit) tablet lisinopril 20 mg tablet 20 mg PO DAILY 02/24/20 01/12/23 multivit with min-folic 1 tablet PO DAILY 02/24/20 01/12/23 acid-lutein 400 mcg-250 mcg chewable tablet (Centrum Silver) vitamin B12 500 mcg-folic acid 400 1 tablet PO DAILY 12/13/21 01/12/23 mcg tablet ciclopirox 8 % topical solution 1 applic topical DIRECTED 11/20/22 01/12/23 desoximetasone 0.05 % topical cream 1 applic topical DIRECTED 11/20/22 01/12/23 rosuvastatin 5 mg tablet 5 mg PO DAILY 11/20/22 01/12/23 fluticasone 250 mcg-salmeterol 50 1 inh inhalation PRN PRN Shortness 01/12/23 01/12/23 mcg/dose blistr powdr for Of Breath Or Wheezing inhalation (Wixela Inhub) Allergies Allergy/AdvReac Type Severity Reaction Status Date / Time strawberry Allergy Unknown VOMITING Verified 01/12/23 16:45 latex Allergy Redness of Verified 01/12/23 16:45 Skin Review of Systems Review of Systems: All systems reviewed & are unremarkable except as noted in HPI and below Constitutional: Constitutional: Denies body ache(s), Denies chills, Denies fatigue, Denies fever(s), Denies headache(s), Denies malaise and Denies weakness Eyes: Eyes: Denies blurry vision, Denies irritation and Denies loss of vision ENT: Denies otalgia, Denies headache(s), Reports nasal discharge, Denies sinus pain and Denies sore throat Cardiovascular: Cardiovascular: Denies chest pain, Denies irregular heart rhythm and Denies dyspnea Respiratory: Respiratory: Reports cough and Denies dyspnea Gastrointestinal: Gastrointestinal: Denies abdominal pain, Denies melena, Denies hematochezia, Denies diarrhea, Denies nausea and Denies vomiting Musculoskeletal: Musculoskeletal: Denies back pain, Denies myalgias and Denies arthralgias Integumentary/Breasts: Skin/Breast: Denies pruritus and Denies rash Neurologic: Denies headache(s), Denies loss of vision and Denies weakness Psychiatric: Psychiatric: Reports no additional psychiatric complaints Endocrine: Endocrine: Denies fatigue [facility] Past Medical History Medical History (Updated 01/12/23 @ 16:52 by Emily Townsend APRN) Allergies Amputation of great toe Amputation toe Partial left first Arthritis Asthma Bilateral cataracts Glaucoma HTN (hypertension) Hyperlipidemia Left ACL tear Left rotator cuff tear Obesity Rectal polyp Spinal stenosis Tear of left meniscus as current injury Tear of medial meniscus of right knee Surgical History Surgical History (Updated 03/07/22 @ 08:17 by Vlad Toro MD) H/O bilateral cataract extraction H/O colonoscopy H/O lateral meniscus repair of left knee History of arthroscopy of right knee January 08, 2022 - medial and lateral partial meniscectomy History of repair of anterior cruciate ligament of left knee History of sin
[2023-01-12 16:38] VITALS: BP 116/61; PULSE 82; RESP 18; TEMP 36.8; O2SAT 95
== END 2023-01-12 16:57 | disposition home or self-care (01) ==
PROVIDERS: Emergency Provider Nurse Practitioner Family; PCP Family Medicine
DX: J06.9 Acute upper respiratory infection, unspecified (principal); J45.901 Unspecified asthma with (acute) exacerbation; Z87.891 Personal history of nicotine dependence; M19.90 Unspecified osteoarthritis, unspecified site; I10 Essential (primary) hypertension; M48.00 Spinal stenosis, site unspecified; E78.5 Hyperlipidemia, unspecified; H40.9 Unspecified glaucoma; Z98.42 Cataract extraction status, left eye; Z98.41 Cataract extraction status, right eye; E66.9 Obesity, unspecified; Z68.34 Body mass index [BMI] 34.0-34.9, adult
CPT/HCPCS: 99213; G0463

== ENCOUNTER 2023-08-08 15:05 | Emergency (ER) | payer MEDICARE, OTHER, SELFPAY ==
--- NOTE | 2023-08-08 15:19 | ED.GENADULT ---
HPI - General Adult General Chief complaint: Upper Respiratory Infection Stated complaint: Earache, Sore Throat Source: patient, RN notes reviewed and old records reviewed Mode of arrival: ambulatory Limitations: no limitations History of Present Illness HPI narrative: 72-year-old male presents with complaint right ear pain, pain on right side of throat, and headache this started 3 days ago. Patient taking zjxg-svv-fnlxmrl medications with no relief. Patient denies cough, dizziness, weakness, chest pain, shortness of breath. MD complaint: Earache Onset (ago): day(s) (3) Related Data Home Medications Medication Instructions Recorded Confirmed hydrochlorothiazide 25 mg tablet 25 mg DAILY 08/11/19 08/08/23 cholecalciferol (vitamin D3) 250 250 mcg PO DAILY 02/24/20 08/08/23 mcg (10,000 unit) tablet lisinopril 20 mg tablet 20 mg PO DAILY 02/24/20 08/08/23 multivit with min-folic 1 tablet PO DAILY 02/24/20 08/08/23 acid-lutein 400 mcg-250 mcg chewable tablet (Centrum Silver) vitamin B12 500 mcg-folic acid 400 1 tablet PO DAILY 12/13/21 08/08/23 mcg tablet ciclopirox 8 % topical solution 1 applic topical DIRECTED 11/20/22 08/08/23 rosuvastatin 5 mg tablet 5 mg PO DAILY 11/20/22 08/08/23 fluticasone 250 mcg-salmeterol 50 1 inh inhalation PRN PRN Shortness 01/12/23 08/08/23 mcg/dose blistr powdr for Of Breath Or Wheezing inhalation (Wixela Inhub) Allergies Allergy/AdvReac Type Severity Reaction Status Date / Time strawberry Allergy Unknown VOMITING Verified 08/08/23 15:14 latex Allergy Redness of Verified 08/08/23 15:14 Skin Review of Systems Constitutional: Constitutional: Reports no additional constitutional complaints, Denies body ache(s), Denies chills, Denies fatigue, Denies fever(s) and Denies headache(s) Eyes: Eyes: Reports no additional eye complaints and Denies blurry vision ENT: Reports system reviewed and no additional complaints, except as documented, Denies vertigo, Denies dizziness, Denies ear discharge, Reports otalgia, Denies facial pain, Denies headache(s), Denies nasal congestion, Denies nasal discharge, Denies sinus pain, Denies sinus pressure and Reports sore throat Cardiovascular: Cardiovascular: Reports no additional cardiovascular complaints, Denies chest pain, Denies chest pain at rest, Denies rapid heart rate and Denies dyspnea Respiratory: Respiratory: Reports no additional respiratory complaints, Denies chest congestion, Denies cough, Denies pain on inspiration, Denies pain with cough and Denies dyspnea Gastrointestinal: Gastrointestinal: Denies abdominal pain, Denies diarrhea, Denies nausea and Denies vomiting Integumentary/Breasts: Skin/Breast: Denies rash Neurologic: Reports system reviewed and no additional complaints, except as documented, Denies vertigo, Denies dizziness and Denies headache(s) Endocrine: Endocrine: Denies fatigue PMFSH Past Medical History Medical History Allergies Amputation of great toe Amputation toe Partial left first Arthritis Asthma Bilateral cataracts Glaucoma HTN (hypertension) Hyperlipidemia Left ACL tear Left rotator cuff tear Obesity Rectal polyp Spinal stenosis Tear of left meniscus as current injury Tear of medial meniscus of right knee Surgical History Surgical History H/O bilateral cataract extraction H/O colonoscopy H/O lateral meniscus repair of left knee History of arthroscopy of right knee January 08, 2022 - medial and lateral partial meniscectomy History of repair of anterior cruciate ligament of left knee History of sinus surgery History of surgical procedure on eye proper using laser Bilateral for glaucoma S/P left rotator cuff repair Family History Family History Father Hypertension Family history of throat cancer Family history of alcoh
[2023-08-08 15:22] VITALS: BP 124/74; PULSE 73; RESP 16; TEMP 36.9; O2SAT 98
== END 2023-08-08 15:36 | disposition home or self-care (01) ==
PROVIDERS: Emergency Provider Registered Nurse; PCP Family Medicine
DX: H66.91 Otitis media, unspecified, right ear (principal); I10 Essential (primary) hypertension; E78.5 Hyperlipidemia, unspecified; Z79.899 Other long term (current) drug therapy; Z87.891 Personal history of nicotine dependence
CPT/HCPCS: 99213; G0463

== ENCOUNTER 2023-11-18 09:33 | Outpatient (CLI) | payer MEDICARE, OTHER, SELFPAY ==
--- NOTE | ~2023-11-18 | XR_ITS ---
Right Knee Technique: AP and lateral views were obtained. Clinical History: Pain Findings: No fracture or dislocation is seen. Osseous alignment is anatomic. Joint spaces are preserv ed without degenerative or erosive change. Soft tissues are unremarkable. No joint effusion is seen. Impression: Unremarkable right knee radiographs. Reviewed, dictated and finalized at location . Impression: Unremarkable right knee radiographs.
== END 2023-11-18 09:34 | disposition home or self-care (01) ==
PROVIDERS: PCP Family Medicine; Visit Provider Orthopaedic Surgery
DX: M25.561 Pain in right knee (principal)
CPT/HCPCS: 73564

== ENCOUNTER 2024-08-10 10:15 | Emergency (ER) | payer MEDICARE, OTHER, SELFPAY ==
--- NOTE | ~2024-08-10 | XR_ITS ---
EXAMINATION: XR chest 2V DATE: 08/10/2024 10:52 INDICATION: Cough. Afebrile. TECHNIQUE: Frontal and lateral views of the chest were obtained. COMPARISON: Chest 2 views 12/08/2018 FINDINGS: There is no pneumonia, pleural effusion, or pneumothorax. The heart size is normal. IMPRESSION: 1. No acute cardiopulmonary disease. Reviewed, dictated and finalized at location A. SIT MECHANIC
[2024-08-10 10:28] VITALS: BP 134/65; PULSE 81; RESP 16; TEMP 36.7; O2SAT 98
--- NOTE | 2024-08-10 10:35 | ED.URI ---
HPI - URI/Sore Throat General Chief Complaint: Upper Respiratory Infection Stated Complaint: Sinus Infection Symptoms Time Seen by Provider: 08/10/24 10:39 Source: patient and RN notes reviewed Mode of arrival: ambulatory Limitations: no limitations History of Present Illness HPI Narrative: 73-year-old male presents with concern for one-week history of symptoms with head congestion and now is moving to his chest. Reports tight cough that gets worse at night. Reports general malaise, body aches, fatigue. Reports he has been taking DayQuil and NyQuil, tea and honey. MD elicited complaint: cough Related Data Home Medications ?Medication ?Instructions ?Recorded ?Confirmed ?Last Taken ?Type hydrochlorothiazide 25 mg tablet 25 mg DAILY 08/11/19 02/26/24 01/08/22 History cholecalciferol (vitamin D3) 250 250 mcg PO DAILY 02/24/20 02/26/24 01/04/22 History mcg (10,000 unit) tablet lisinopril 20 mg tablet 20 mg PO DAILY 02/24/20 02/26/24 01/08/22 History fzkhegxmwaxg-ntcdbva-nqmks acid 1 tablet PO DAILY 02/24/20 02/26/24 01/04/22 History 400 mcg-lutein 250 mcg chewable tablet (Centrum Silver) vitamin B12 500 mcg-folic acid 400 1 tablet PO DAILY 12/13/21 02/26/24 01/04/22 History mcg tablet rosuvastatin 5 mg tablet 5 mg PO DAILY 11/20/22 02/26/24 Unknown History fluticasone 250 mcg-salmeterol 50 1 inh inhalation PRN PRN Shortness 01/12/23 02/26/24 Unknown History mcg/dose blistr powdr for Of Breath Or Wheezing inhalation (Wixela Inhub) empagliflozin 10 mg tablet mg 08/10/24 Unknown History (Jardiance) finasteride 5 mg tablet mg 08/10/24 Unknown History gabapentin 100 mg capsule mg 08/10/24 Unknown History tamsulosin 0.4 mg capsule mg PO 08/10/24 Unknown History Allergies Allergy/AdvReac Type Severity Reaction Status Date / Time strawberry Allergy Unknown VOMITING Verified 08/10/24 10:43 latex Allergy Redness of Verified 08/10/24 10:43 Skin Review of Systems Review of Systems: CONSTITUTIONAL: Reports malaise, fatigue EYES: Denies visual changes, redness, or discharge. ENT: Reports rhinorrhea, congestion, CARDIOVASCULAR: Denies chest pain, palpitations, or edema. RESPIRATORY: Reports cough, chest congestion. Denies dyspnea. GASTROINTESTINAL: Denies abdominal pain, nausea, vomiting, diarrhea SKIN: Denies rash or itching. MUSCULOSKELETAL: Reports myalgia. NEUROLOGIC: Denies headache. All systems reviewed & are unremarkable except as noted in HPI and below PMFSH Past Medical History Medical History Allergies Amputation of great toe Amputation toe Partial left first Arthritis Asthma Bilateral cataracts Glaucoma HTN (hypertension) Hyperlipidemia Left ACL tear Left rotator cuff tear Obesity Rectal polyp Spinal stenosis Tear of left meniscus as current injury Tear of medial meniscus of right knee Surgical History Surgical History H/O bilateral cataract extraction H/O colonoscopy H/O lateral meniscus repair of left knee History of arthroscopy of right knee January 08, 2022 - medial and lateral partial meniscectomy History of repair of anterior cruciate ligament of left knee History of sinus surgery History of surgical procedure on eye proper using laser Bilateral for glaucoma S/P left rotator cuff repair Family History Family History Father Hypertension Family history of throat cancer Family history of alcoholism Mother Asthma Hypertension Heart disease Sibling Asthma Hypertension Social History Social History Smoking packs per day: 1.5 Smoking cigarettes per day: 30.0 Years smoked: 8 Smoking pack-years: 12.00 Smoking status: Former smoker Tobacco type: cigarettes Smoking end date: 08/19/72 Additional smoking assessment comments: 1 1/2PK/DAY FROM AGE 14-20 Alcohol intake: current Alcohol use details: ONE DRINK PER MONTH Substance use: never Do You Feel Safe in your Home?: Yes Lack of Transportation: No Lack of Food: Never True Current Housing: I Have Housing Concerned About Future Housing: No Difficulty Paying Gas/Electric Bills: No Difficulty Paying for Meds: No Currently Unemployed: No Education: Associate Degree Difficulty w/ Childcare or Family Care: No Living arrangements: with family Occupation/Education: retired Gender identity (if verbalized by the patient): Male Sexual Orientation (if Verbalized by the Patient): Straight or Heterosexual Spiritual care concerns: No Comments At time of signature, agree with nursing past medical, surgical, social and family history. There is no relevant family history pertinent to the presenting complaint Exam Narrative: GENERAL: Nontoxic-appearing, well-nourished, and in no acute distress. HEAD: Normocephalic EYES: PERRLA, conjunctivae clear ENT: Nares clear. Mucous membranes moist. TM pearly moy with dull light reflex bilaterally; no tragal tenderness. Oropharynx not erythematous without lesions. Tonsils not enlarged and without exudate, no drooling, no hoarseness, no trismus, uvula midline. NECK: Supple. No lymphadenopathy CHEST: Clear to auscultation, breath sounds equal. No wheezing, rhonchi, rales, or stridor. No respiratory distress, speaks in full sentences. Cough noted HEART: Regular rate and rhythm. No murmur heard. SKIN: Warm, dry, no rash. NEURO: Alert and oriented x3. PSYCH: Normal mood and affect Course Course Emergency Course: Patient is aware of diagnosis, understands and agrees to treatment plan. Anticipatory guidance given. Patient agrees to follow-up as directed and is aware of reasons to seek care at the emergency department. Portions of this record may have been created with voice recognition software Level of Care: Express Care Visit Vital Signs Vital signs: Vital Signs Temperature 98.1 F 08/10/24 10:28 Pulse Rate 81 08/10/24 10:28 Respiratory Rate 16 08/10/24 10:28 Blood Pressure 134/65 08/10/24 10:28 Pulse Oximetry 98 08/10/24 10:28 Temperature 98.1 F 08/10/24 10:28 Pulse Rate 81 08/10/24 10:28 Respiratory Rate 16 08/10/24 10:28 Blood Pressure 134/65 08/10/24 10:28 Pulse Oximetry 98 08/10/24 10:28 Reviewed. MDM - URI/Sore Throat MDM Narrative Medical decision making narrative: Differential diagnosis considered: Crook virus, strep pharyngitis, allergic rhinitis, upper respiratory tract infection, sinusitis, rhinosinusitis, nasopharyngitis. viral pharyngitis, otitis media, otitis externa, pneumonia, bronchitis, viral cough syndrome, viral syndrome, and influenza. Exam findings show no acute concerns or changes; patient is non-toxic appearing and is in no distress. Patient is appropriate for outpatient treatment and follow-up. Lab Data Attestation: I reviewed the patient's lab results. Critical Care Time Critical Care Time Critical Care Time: No Discharge Plan Discharge Clinical Impression: Bronchitis Patient Disposition: Home, Self-Care Condition: Stable Instructions: Acute Bronchitis (ED) Additional Instructions: Your chest x-ray is normal, you do not have pneumonia Viral illness may last between 7-21 days; antibiotics do not cure viral illness and are NOT recommended at this time. Recommend antihistamine such as Benadryl at night time and Zyrtec or Patricia during the day Cough syrup may cause drowsiness; avoid driving or take it at night time. Also, recommend symptomatic treatment includes: rest, fluids, and increase humidity of the air at home. Recommend Acetaminophen as directed on the bottle to reduce fever, pain, headache. Avoid smoking/second-hand smoke. Please schedule a follow-up visit with your personal physician for further evaluation and treatment within 3-5days. Including recheck and discussion of your blood pressure. If your symptoms persist, change or worsen significantly before you can contact your personal physician then please, without delay, go to the emergency department for further evaluation. Patient Language: Malawian Prescriptions: New promethazine-DM 6.25-15 mg/5 mL syrup 5 ml PO Q4-6H PRN (Reason: cough) Qty: 120 0RF methylprednisolone [Medrol (Sanchez)] 4 mg tablets,dose pack See Rx Instructions .ROUTE .COMPLEX Qty: 21 0RF Rx Instructions: orally per package directions No Action hydrochlorothiazide 25 mg tablet 25 mg DAILY fluticasone propion-salmeterol [Wixela Inhub] 250-50 mcg/dose blister with device 1 inh INHALATION PRN PRN (Reason: Shortness Of Breath Or Wheezing) albuterol sulfate 2.5 mg/0.5 mL solution for nebulization 5 mg inhalation Q6H PRN (Reason: shortness of breath or wheezing) Qty: 30 0RF tamsulosin 0.4 mg capsule PO gabapentin 100 mg capsule finasteride 5 mg tablet Jardiance 10 mg tablet rosuvastatin 5 mg tablet 5 mg PO DAILY vitamin K28-hsevm acid 500-400 mcg tablet 1 tablet PO DAILY Rx Instructions: administer with a meal lisinopril 20 mg Tablet 20 mg PO DAILY Centrum Silver 400-250 mcg Tablet,Chewable 1 tablet PO DAILY cholecalciferol (vitamin D3) 250 mcg (10,000 unit) Tablet 250 mcg PO DAILY Follow-up/Referrals: PHYSICIAN,SALES DEVELOPMENT ASSOCIATE [Primary Care Provider] - Time of Disposition: 11:08
[2024-08-10 10:45] LABS: EDCOVIDSCREEN Negative (Negative); EDINFLUASCREEN Negative (Negative); EDINFLUBSCREEN Negative (Negative)
== END 2024-08-10 11:20 | disposition home or self-care (01) ==
PROVIDERS: Emergency Provider Nurse Practitioner
DX: J40 Bronchitis, not specified as acute or chronic (principal); I10 Essential (primary) hypertension; Z79.899 Other long term (current) drug therapy; E78.5 Hyperlipidemia, unspecified; Z87.891 Personal history of nicotine dependence; Z20.822 Contact with and (suspected) exposure to COVID-19
CPT/HCPCS: 71046; 87426; 87804; 99213; G0463

== ENCOUNTER 2024-12-28 14:21 | Outpatient (CLI) | payer MEDICARE, OTHER, SELFPAY ==
--- NOTE | ~2024-12-28 | XR_ITS ---
XR shoulder RT min 2V Ordering provider: Keon Russ MD History: . M25.511 - Pain in right shoulder . Comparison: None. FINDINGS: BONES: No acute fracture or dislocation. Degenerative changes in the area of the greater tuberosity. Narrowing of the distance between the humeral head and the acromion process is noted. JOINT SPACES: The acromioclavicular joint shows mild osteoarthritic changes.. The glenohumeral joint is normal. SOFT TISSUES: Normal. IMPRESSION: No acute osseous abnormality right shoulder. Osteoarthritic changes of the acromioclavicular joint. Degenerative changes in the greater tuberosity which may indicate rotator cuff disease. Reviewed, dictated and finalized at location A.
--- OUTSIDE RECORDS SUMMARY | 2024-12-28 14:29 | XMS_ITS | Encounter Summary ---
Author Organization [facility] Healthcare Address [address] [place] [address] Care Team Providers Care Loan Expeditor Name Role Phone Macarena De Los Santos MD Primary Care Provi nadia Joesph Baldwin MD Unavailable [phone] Alan Little MD Unavailable Harinder Huang MD Unavailable [phone] Encounter Details Date Type Department Care Team (Late st Contact Info) Description 11/15/2024 Results Follow-Up [facility] Medical Group Family Medicine [address] [address] Macarena De Los Santos MD [address] [address] Social History Tobacco Use Types Packs/Day Years Used Date Smoking Tobacco: Former Cigarettes 0.5 8 0 01/12/1965 - 01/12/1973 Smokeless Tobacco: Never Alcohol Use Standard Drinks/Week Comments Yes 1 (1 standard drink = 0.6 oz pur e alcohol) AUDIT-C Answer Date Recorded Q1: How often do you have a drink containing alc ohol? Monthly or less 10/06/2024 Q2: How many drinks containi ng alcohol do you have on a typical day when you are drinking? 1 or 2 10/06/2024 Q3: How often do you have si x or more drinks on one occasion? Never 10/06/2024 PHQ-2 Answer Date Recorded PHQ-2 Total Score (If total score is 3 or more points, staff should administer the PHQ-9) 2 11/06/2024 PHQ-9 Answer Date Recorded PHQ-9 Total Score 3 11/06/2024 Personal Safety Answer Date Recorded Have you ever been in or are you currently in a harmful physical or emotional relationship or is someone making you feel afraid or unsafe? 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 documented in this encounter Plan of Treatment Not on file documented as of this encounter Visit Diagnoses Not on filedocumented in this encounter Care Teams Loan Expeditor Relationship Specialty Start Date End Date Macarena De Los Santos MD [facility] [address] [place] [address] PCP - General Family Medicine 11/15/20 Joesph Baldwin MD [address] [facility] [address] [place] [address] Referring Physician Gastroenterology 07/08/23 Alan Little MD [address] [place] [address] Consulting Physician Gastroenterology 07/11/23 Harinder Huang MD [address] [place] [address] Consulting Physician Colon and Rectal Surgery 07/19/23 documented as of this encounter
--- OUTSIDE RECORDS SUMMARY | 2024-12-28 14:29 | XMS_ITS | Encounter Summary ---
Author Organization [facility] Healthcare Address [address] [place] [address] Care Team Providers Care Sales Superintendent Name Role Phone Macarena De Los Santos MD Primary Care Provi nadia Joesph Baldwin MD Unavailable [phone] Alan Little MD Unavailable Harinder Huang MD Unavailable [phone] Encounter Details Date Type Department Care Team (Late st Contact Info) Description 11/04/2024 Results Follow-Up [facility] Medical Group Convenient Care at [address] [address] Ema Mo NP [address] [place] [address] [address] [place] [address] Social History Tobacco Use Types Packs/Day Years [...] on file 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 Answer Date of Assessment Author Monthly or less 11/06/2024 8:52 AM CDT Moises Generic Provider * Q2: How many drinks containing alcohol do you have on a typical day when you are drinking? Answer Date of Assessment Author 1 or 2 11/06/2024 8:52 AM CDT Moises Generic Provider * Q3: How often do you have six or more drinks on one occasion? Answer Date of Assessment Author Never 11/06/2024 8:52 AM CDPino De Leon Generic Provider documented as of this encounter Plan of Treatment Not on file documented as of this encounter Visit Diagnoses Not on filedocumented in this encounter Care Teams Sales Superintendent Relationship Specialty Start Date End Date Macarena De Los Santos MD [address] [place] [address] PCP - General Family Medicine 11/15/20 Joesph Baldwin MD [address] [place] [address] Referring Physician Gastroenterology 07/08/23 Alan Little MD [address] [facility] [address] Consulting Physician Gastroenterology 07/11/23 Harinder Huang MD [facility] [facility] [place] [address] Consulting Physician Colon and Rectal Surgery 07/19/23 documented as of this encounter
--- OUTSIDE RECORDS SUMMARY | 2024-12-28 14:29 | XMS_ITS | Encounter Summary ---
Author Organization [facility] Healthcare Address [address] [place] [address] Care Team Providers Care Computer Systems Technician Name Role Phone Macarena De Los Santos MD Primary Care Provi nadia Joesph Baldwin MD Unavailable Alan Little MD Unavailable Harinder Huang MD Unavailable [phone] Encounter Details Date Type Department Care Team (Late st Contact Info) Description 11/03/2024 Results Follow-Up [facility] Medical Group Convenient Care at [address] [address] Ema Mo NP [address] [place] [address] [address] [place] [address] Social History Tobacco Use Types [...] on file 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 Answer Date of Assessment Author Monthly or less 11/06/2024 8:52 AM CDT Silvia De Leon Provider * Q2: How many drinks containing alcohol do you have on a typical day when you are drinking? Answer Date of Assessment Author 1 or 2 11/06/2024 8:52 AM CDT Silvia De Leon Provider * Q3: How often do you have six or more drinks on one occasion? Answer Date of Assessment Author Never 11/06/2024 8:52 AM CDT Moises Generic Provider documented as of this encounter Plan of Treatment Not on file documented as of this encounter Visit Diagnoses Not on filedocumented in this encounter Additional Health Concerns Infection Onset Date Last Indicated Resolved Time COVID: Suspected 11/03/2024 11/03/2024 11/03/2024 8:16 PM CDT documented as of this encounter Care Teams Computer Systems Technician Relationship Specialty Start Date End Date Macarena De Los Santos MD [facility] [address] [place] [address] PCP - General Family Medicine 11/15/20 Joesph Baldwin MD [address] [place] [address] Referring Physician Gastroenterology 07/08/23 Alan Little MD [address] [facility] [address] [place] [address] Consulting Physician Gastroenterology 07/11/23 Harinder Huang MD [address] [facility] [address] [place] [address] Consulting Physician Colon and Rectal Surgery 07/19/23 documented as of this encounter
--- OUTSIDE RECORDS SUMMARY | 2024-12-28 14:30 | XMS_ITS | Patient Health Record ---
Author Organization 1 OF Kenneth wilson [facility] Address [address] [facility] [address] [place] [address] Care Team Providers Care Cane Cutter Name Role Phone Filiberto WARNER, Macarena Primary Care Provider Un available Lexi Polk Unavailable [phone] Reason For Referral No Information Medications Medication SIG (Take, Route, Fr equency, Duration) Notes Start Date End Date Status Crestor Active Vitamin B12 Active Lisinopril Active ProAir HFA Active Centrum Active hydroCHLOROthiazide Active Advair Diskus Active Ciclopirox 8 % 1 application to aff ected toenails daily. Every weekend, remove medicine with nail yoruba remover. Topical Once a day for 120 days 11/07/2022 Active Plan Of Treatment No Information Insurance Providers Payer Name Payer Address Payer Phone Subscriber Number Group Number Insured Name Patient Relationship to Insured Coverage Start Date Coverage End Date Medicare [address] [facility] [place] [id number] Chapo Song Self - patient is the insured [employer] [address] [place] [address] [phone] [id number] Chapo Song Self - patient is the insured Medical (General) History Medical History History ICD Code Arthritis, Asthma, Gout, HBP Surgical History Surgery Date(Month/Year) correction for amputation of LT great to e
--- OUTSIDE RECORDS SUMMARY | 2024-12-28 14:30 | XMS_ITS | Encounter Summary ---
Author Organization [facility] Address [facility] [place] [address] Care Team Providers Care Medical Corps Officer Name Role Phone Jermain Piña Primary Care Provider Encounter Details Date Type Department Care Team (Latest Contact Info) Description 06/24/2018 Abstract [facility] Medical Group Silvia Paz MD Social History Tobacco Use Types Packs/Day Years Used Date Smoking Tobacco: Never Assessed Sex and Gender Information Value Date Recorded Sex Assigned at Not on file Legal Sex Male 7:55 PM CDT Gender Identity Not on file Sexual Orientation Not on file documented as of this encounter Plan of Treatment Not on file documented as of this encounter Visit Diagnoses Not on filedocumented in this encounter Care Teams Medical Corps Officer Relationship Specialty Start Date End Date Jermain Piña PA [address] [place] [address] [place] [address] PCP - General 05/03/14 documented as of this encounter
--- OUTSIDE RECORDS SUMMARY | 2024-12-28 14:30 | XMS_ITS | Continuity of Care Document ---
Author Name [facility] Organization [facility] Care Team Providers Care Town Planner Name Role Phone [facility] Unavailable Unavailable Problems Combined list of problems from Department of Defense and Veterans Affairs facilities. It does not include entries that were removed or entered in error. Problem Status Onset Date Problem Type Date of Resolution Comments Source TINNITUS NOS Active Condition [facility] joint pain, localized in the wrist Active Condition Good progress - - goals are ongoing. Patient would benefit from continuing with splint wear for two more weeks. [facility] Occupational Therapy Inactive Condition Patient demonstrated understanding of splint wear/care. Good progress -- goals are ongoing. [facility] Diagnosis: ICD-10-CM H91.93 Unspecified hearing loss, bilateral Active Diagnosis [facility] Medications Combined list of outpatient medications from Department of Defense and Veterans Affairs facilities.Medications provided include 1) outpatient medications from the last 15 months, and 2) patient-reported medications. Medication Details Route Status Patient Instructions Prescription Expires Prescription Number Last Dispense Date Ordering Provider Order Date Order Qty Source HYDROCHLORO THIAZIDE (hydrochlor othiazide), 25 MG, TABLET, ORAL, [employer] 1000 ea. BOTTLE Active [id number] 4 2023 90 Pharmac y Data Transac tion Service Facilit y HYDROCHLORO THIAZIDE (hydrochlor othiazide), 25 MG, TABLET, ORAL, [employer] 1000 ea. BOTTLE Active [id number] 4 2023 90 Pharmac y Data Transac tion Service Facilit y LISINOPRIL (lisinopril ), 20 MG, TABLET, ORAL, EXELAN PHARMACE, 1000 ea. BOTTLE Active [id number] 4 2023 90 Pharmac y Data Transac tion Service Facilit y LISINOPRIL (lisinopril ), 20 MG, TABLET, ORAL, EXELAN PHARMACE, 1000 ea. BOTTLE Active [id number] 4 2023 90 Pharmac y Data Transac tion Service Facilit y ROSUVASTATI N CALCIUM (rosuvastat in calcium), 5 MG, TABLET, ORAL, [employer] 1000 ea. BOTTLE Active [id number] 4 2023 90 Pharmac y Data Transac tion Service Facilit y ROSUVASTATI N CALCIUM (rosuvastat in calcium), 5 MG, TABLET, ORAL, [employer] 90 ea. BOTTLE Cancele d [id number] : 2023 0 Pharmac y Data Transac tion Service Facilit y Allergies, Adverse Reactions, Alerts Combined list of allergies from Department of Defense and Veterans Affairs facilities. It does not include entries that were removed or entered in error. Substance Category Reaction Severity Reaction type Status Date Reported Comments Source [place]OVE Propensity to adverse reactions to drug (finding) Itching of eye MODERATE active 5 [facility] Propensity to adverse reactions to substance (finding) Itching of eye MODERATE active 5 [facility] STRAWBERRY (DO NOT USE, NOT SCREENED) (FLAVORING AGENT) Food allergy (disorder) Vomiting active 7 [facility] Fabian RUIZ ([facility] Immunizations Combined list of available immunizations from the Department of [facility] and [facility] facilities. Immunization Series Date Given Administered By Site Reaction Lot Number CVX Code Drug Exercise Physiologist Status Comments Source INFLUENZA, UNSPECIFIED FORMULATION 2023 88 complet ed HISTORICA L INFORMATI ON - FROM PATIENT'S RECALL, [facility] zoster recombinant 2022 () Not Given zoster recombina nt DoD COVID-19, mRNA, LNP-S, PF, 30 mcg/0.3 mL dose, lidia-sucrose 2021 [employer] [place] (PFR) Not Given COVID-19, mRNA, LNP-S, PF, 30 mcg/0.3 mL dose, lidia-sucr ose DoD COVID-19, mRNA, LNP-S, PF, 30 mcg/0.3 mL dose 2020 [employer] (PFR) Not Given COVID-19, mRNA, LNP-S, PF, 30 mcg/0.3 mL dose DoD influenza, high-dose, quadrivalent 2020 BURAKI, () Not Given influenza , high-dose , quadrival ent DoD COVID-19, mRNA, LNP-S, PF, 30 mcg/0.3 mL dose 2020 [place] (PFR) Not Given COVID-19, mRNA, LNP-S, PF, 30 mcg/0.3 mL dose DoD COVID-19, mRNA, LNP-S, PF, 30 mcg/0.3 mL dose 2020 MARZENA, [employer] [place] (PFR) Not Given COVID-19, mRNA, LNP-S, PF, 30 mcg/0.3 mL dose DoD influenza, high-dose, quadrivalent 2019 ALUL, () Not Given influenza , high-dose , quadrival ent DoD Influenza, high dose seasonal 2018 ALUL, () Not Given Influenza , high dose seasonal DoD pneumococcal polysaccharid e vaccine, 23 valent 1 2017 Unknown, Provider [id number] Merck (MSD) complet ed pneumococ ora polysacch aride vaccine, 23 valent DoD tetanus toxoid, reduced diphtheria toxoid, and acellular pertu is vaccine, adsorbed 1 2016 Unknown, Provider [id number] ed tetanus toxoid, reduced diphtheri a toxoid, and acellular pertussis vaccine, adsorbed DoD pneumococcal conjugate vaccine, 13 valent 1 2016 Unknown, Provider [id number] Natacha (KELLIE) complet ed pneumococ ora conjugate vaccine, 13 valent DoD Influenza, seasonal, injectable 1 2016 Unknown, Provider [id number] (IDB) complet ed Influenza , seasonal, injectabl e DoD Influenza, injectable, quadrivalent, preservative free 1 2014 Unknown, Provider [id number] [facility] complet ed Influenza , injectabl e, quadrival ent, preservat yohan free DoD influenza, injectable, quadrivalent, contains preservative 1 2013 Unknown, Provider [id number] (IDB) complet ed influenza , injectabl e, quadrival ent, contains preservat yohan DoD Influenza, seasonal, injectable, preservative free 1 2012 Unknown, Provider [id number] 140 Sanofi Pasteur (PMC) complet ed Influenza , seasonal, injectabl e, preservat yohan free DoD hepatitis A vaccine, adult dosage 2 2012 Unknown, Provider [id number] 52 Versartisine (SKB) complet ed hepatitis A vaccine, adult dosage DoD zoster vaccine, live 1 2012 Unknown, Provider [id number] Merck (MSD) complet ed zoster vaccine, live DoD influenza virus vaccine, split virus (incl. purified surface antigen)-reti red CODE 1 2009 Unknown, Provider [id number] [employer], [employer]. (CSL) complet ed influenza virus vaccine, split virus (incl. purified surface antigen)- retired CODE DoD influenza virus vaccine, split virus (incl. purified surface antigen)-reti red CODE 1 2004 Unknown, Provider [id number] Sanofi Pasteur (PMC) complet ed influenza virus vaccine, split virus (incl. purified surface antigen)- retired CODE DoD hepatitis A vaccine, adult dosage 1 1995 Unknown, Provider 52 () complet ed hepatitis A vaccine, adult dosage [facility] tetanus and diphtheria toxoids, adsorbed, preservative free, for adult use (2 Lf of tetanus toxoid and 2 Lf of diphtheria toxoid) 1 1983 Unknown, Provider 09 () complet tetanus and diphtheri a toxoids, adsorbed, preservat yohan free, for adult use (2 Lf of tetanus toxoid and 2 Lf of diphtheri a toxoid) [facility] vaccinia (smallpox) vaccine 1 1983 Unknown, Provider 75 () complet vaccinia (smallpox ) vaccine [facility] trivalent poliovirus vaccine, live, oral 1 1978 Unknown, Provider 02 () complet trivalent polioviru s vaccine, live, oral DoD typhoid vaccine, parenteral, acetone-kille d, dried (U.S. ) 1 1978 Unknown, Provider 53 () complet typhoid vaccine, parentera l, acetone-k illed, dried ([place].S. ) DoD yellow fever vaccine 1 1972 Unknown, Provider 37 () complet ed yellow fever vaccine DoD Results Combined list of recent chemistry, hematology and other laboratory results from Department of Defense and Veterans Affairs, ranging from 15 months to all on record, depending upon the facility. Order Name Results Value Reference Range Date Interpretation Specimen Comments Source GLUCOSE ,BLOOD- poct (STL) GLUCOSE [MASS/VOLUM E] IN BLOOD BY AUTOMATED TEST STRIP 272 mg/dL 72 - 99 11/24 H Specimen Type: BLOOD Comment: Test Performed by: [id number] Meter #: [id number] Ordering Provider: ABIMBOLA STOVALL Report Released Date/Time: Nov 24, 2024 04:32 PM Reporting Lab: [address] [address] Performing Lab: [address] [address] [facility] Vital Signs Combined list of inpatient and outpatient Vital Signs from [facility], ranging from 12 months to all on record, depending upon the facility. Vital Sign Value Date Comments Source SYSTOLIC BLOOD PRESSURE 132 11/24/2024 09:02:05 [facility] DIASTOLIC BLOOD PRESSURE 80 11/24/2024 09:02:05 [facility] PULSE OXIMETRY 96 11/24/2024 09:02:05 [facility] WEIGHT 249.1 11/24/2024 09:02:05 [facility] PAIN 0 11/24/2024 09:02:05 [facility] TEMPERATURE 97.6 11/24/2024 09:02:05 [facility] PULSE 78 11/24/2024 09:02:05 [facility] RESPIRATION 20 11/24/2024 09:02:05 [facility] Encounters Combined list of: 1) Encounters from [facility] facilities going backup to the last 18 months, not all [place] inpatient encounters are included; 2) Encounters from the [facility] facilities going backup to 280 months. Location Location Details Encounter Type Encounter Number Reason For Visit Attending Provider ADM Date DC Date Status Disposition Source [address] [place] [address] Fabian RUIZ ([facility]Occ upational Therapy) OUTPATIENT [id number] wrist cock up splint LINDSEY EDMOND 12/18 Released w/o Limitations [address] [place] [address] Fabian RUIZ ([facility])(O ccupati onal Therapy ) [address] [place] [address] Fabian RUIZ ([facility]Occ upational Therapy) OUTPATIENT [id number] CARMITA HUMPHREYS 12/23 Released w/o Limitations [facility] [employer] Fabian RUIZ ([facility])(O ccupati onal Therapy ) [address] [place] [address] Group Fabian RUIZ ([facility])(Occ upational Therapy) OUTPATIENT [id number] CARMITA HUMPHREYS 12/31 Released w/o Limitations [facility] Fabian RUIZ ([facility]O ccupati onal Therapy ) [address] [place] [address] Group Fabian RUIZ ([facility])(Occ upational Therapy) OUTPATIENT [id number] CARMITA HUMPHREYS 01/15 Released w/o Limitations [facility] Fabian RUIZ ([facility])(O ccupati onal Therapy ) [facility] Outpatient Encounter [id number] 08/19 [facility] Outpatient Encounter [id number] 05/09 [facility] Outpatient Encounter [id number] 11/24 [facility] OFFICE O/P [place] HI 40 MIN [id number] Diagnos is: ICD-10- CM H91.93 Unspeci fied hearing loss, bilater MELVINA Duffy MMAD T 11/24 [facility] Procedures Combined list of: 1) Procedures from Department of Veterans Affairs facilities going back up to thelast 18 months, not all [place] non-surgical procedures are included; 2) All procedures from the Department of Defense facilities. Procedure Procedure Type Code Date Perfomer Comments Sourc e Occupational Therapy Re-Evaluation Occupational Therapy Re-Evaluation 36493 7 CARMITA HUMPHREYS Bumper Operator Ed Checkout For Ortho/Prosth Use Estab Patient Bumper Operator Ed Checkout For Ortho/Prosth Use Estab Patient [id number] 7 CARMITA HUMPHREYS Physical Therapy Education Orthotics Training Initial 15 Min CARMITA SHETH Physical Therapy Education Orthotics Training Initial 15 Min 7 CARMITA HUMPHREYS A [facility] [id number]-[id number] orthosis, rigid, without joints, may include soft interface, straps, custom fabricated, includes fitting and adjustment 7 PETR CARMITA Scott [facility] Orthopedic Splinting Long Arm Posterior Orthopedic Splinting Long Arm Posterior 86027 7 PETR CARMITA Scott [facility] Elbow orthosis, without joints, may include soft interface, straps, custom fabricated, includes fitting and adjustment 7 LINDSEY EDMOND [facility] Splint supplies, miscellaneous (includes thermoplastics, strapping, fasteners, padding and other supplies) 7 LINDSEY EDMOND [facility] Wrist-hand orthosis, without joints, may include soft interface, straps, custom fabricated, includes fitting and adjustment 7 LINDSEY EDMOND [facility] OCCUPATIONAL THERAPY RE-EVALUATION 7 [facility] CHECKOUT FOR ORTHOTIC/PROSTHETIC USE, ESTABLISHED PATIENT, EACH 15 MINUTES 7 [facility] ORTHOTIC(S) MANAGEMENT AND TRAINING (INCLUDING ASSESSMENT AND FITTING WHEN NOT OTHERWISE REPORTED),UPPER EXTREMITY(IES),LOWER EXTREMITY(IES) AND/OR TRUNK,INITIAL ORTHOTIC(S) ENCOUNTER,EACH 15 MINUTES 7 [facility] ELBOW ORTHOSIS, WITHOUT JOINTS, MAY INCLUDE SOFT INTERFACE, STRAPS, CUSTOM FABRICATED, INCLUDES FITTING AND ADJUSTMENT 7 [facility] CARDIOVASCULAR STRESS TEST USING MAXIMAL OR SUBMAXIMAL TREADMILL OR BICYCLE EXERCISE,CONTINUOUS ELECTROCARDIOGRAPHIC MONITORING,AND/OR PHARMACOLOGICAL STRESS;W SUPERVISION,INTERPRETATIO N AND REPORT 3 [facility] INFUSION, NORMAL SALINE SOLUTION, 250 CC 3 DoD Social History Combined list of available smoking, tobacco, and other social history from Department of Defense and Veterans Affairs facilities. Social History Type Response Date Comment Source Tobacco smoking status NHIS VA-TOBACCO NEVER USED CIGARETTES 11/24/2024 [facility] History of tobacco use VA-TOBACCO USE FORMER OTHER TYPE 11/24/2024 QUIT 50 YEARS AGO [facility] This section is an empty social history section. [facility] Plan of Care List of future care activities from Department of Veterans Affairs facilities. Additional future care activities may be listed in the Assessment and Plan section. Date/Time Care Activity Care Activity Detail Facili ty 01/27/2025 AMBULATORY - SURGERY AMBULATORY - SURGERY [facility]
--- OUTSIDE RECORDS SUMMARY | 2024-12-28 14:30 | XMS_ITS | Encounter Summary ---
Author Organization [facility] Care Team Providers Care Diversional Therapist Name Role Phone Fabian Zaman MD Primary Care Provid er BELINDA Piña Jr., Jermain Cowan Primary Care Provide r Macarena De Los Santos MD Unavailable [phone] Macarena De Los Santos MD Primary Care Provi nadia Joesph Baldwin MD Unavailable [phone] Alan Little MD Unavailable Harinder Huang MD Unavailable [phone] Encounter Details Date Type Department Care Team (Latest Contact Info) Description 08/05/2018 Orders Only [facility] ProviderMegan MD [address] [place] [address] Social History Tobacco Use Types Packs/Day Years Used Date Smoking Tobacco: Former Sex and Gender Information Value Date Recorded Sex Assigned at Not on file Legal Sex Male 10:41 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 us Historical Provider Final Res ult documented in this encounter Visit Diagnoses Not on filedocumented in this encounter Additional Health Concerns Infection Onset Date Last Indicated Resolved Time COVID: Suspected 04/07/2022 04/07/2022 04/07/2022 11:33 AM CDT COVID: Suspected 04/07/2022 04/07/2022 04/07/2022 5:34 PM CDT COVID: Suspected 11/03/2024 11/03/2024 11/03/2024 8:16 PM CDT documented as of this encounter Care Teams Diversional Therapist Relationship Specialty Start Date End Date Fabian Zaman MD [address] [place] [address] PCP - General 01/09/17 10/28/18 Jermain Piña Jr., PA [address] [place] [address] PCP - General 10/29/18 11/14/20 Macarena De Los Santos MD [address] [place] [address] PCP - General Family Medicine 11/15/20 Macarena De Los Santos MD [address] [place] [address] Consulting Physician Family Medicine 08/28/19 07/18/23 Joesph Baldwin MD [address] [place] [address] Referring Physician Gastroenterology 07/08/23 Alan Little MD [address] [place] [address] Consulting Physician Gastroenterology 07/11/23 Harinder Huang MD [address] [place] [address] Consulting Physician Colon and Rectal Surgery 07/19/23 documented as of this encounter
--- OUTSIDE RECORDS SUMMARY | 2024-12-28 14:30 | XMS_ITS | Clinical Summary ---
Author Organization [facility] Address [address] [place] [address] Care Team Providers Care Freight Traffic Consultant Name Role Phone Unavailable Primary Care Provider Unavailabl e Source Comments [facility],non-owned Affiliates and Associated Physician Practices is amultiple site organization consisting of ambulatory clinics and hospital sitesin [place], [place], [place] and [place]. This disclosure is being madepursuant to the Care Everywhere program and may not contain all information available regarding this patient. 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 Overview (11/18/2017): IMO load 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 09/09/2015 Overview (11/18/2017): IMO load Paresthesia of skin 07/13/2015 Radiculopathy of lumbosacral region 07/13/2015 Other malaise 06/02/2015 Pain in joint 04/11/2015 Low back pain 04/11/2015 Other chronic pain 04/11/2015 Chronic gout without tophus 04/11/2015 Family History Medical History Relation Name Comments Heart Disease Brother Cancer Father Status: d Heart Disease Father Asthma Mother Status: d Fibromyalgia Sister Lupus Sister Relation Name Status Comments Brother Father Mother Sister Social History Tobacco Use Types Packs/Day Years Used Date Smoking Tobacco: Former Cigarettes Smokeless Tobacco: Never Alcohol Use Standard Drinks/Week Comments Yes 1.7 (1 standard drink = 0.6 oz p ure alcohol) Sex and Gender Information Value Date Recorded Sex Assigned at Not on file Legal Sex Male 6:00 PM BRIGHT CUTTER Gender Identity Not on file Sexual Orientation Not on file Last Filed Vital Signs Vital Sign Reading Time Taken Comments Blood Pressure 166/93 10/13/2015 3:03 PM BRIGHT CUTTER Pulse 69 10/13/2015 3:03 PM BRIGHT CUTTER Temperature 36.7 C (98 F) 09/22/2015 2:00 PM BRIGHT CUTTER Respiratory Rate 18 09/22/2015 2:00 PM BRIGHT CUTTER Oxygen Saturation 92% 04/11/2015 11:46 AM CDT Inhaled Oxygen Concentration - - Weight 126.6 kg (279 lb) 11/25/2015 8:36 PM CDT Height 182.9 cm (6') 11/25/2015 8:36 PM CDT Body Mass Index 37.84 11/25/2015 8:36 PM CDT Plan of Treatment Health Maintenance Due Date Last Done Comments COLOGUARD (AGES 45-75) - COL ON CA SCREENING 1952 COLON MONITORING 1952 COLONOSCOPY - COLON CA SCREENING 1952 CT COLONOGRAPHY - COLON CA SCREENING 1950 Colorectal Cancer Screening 1952 FIT - COLON CA SCREENING 1952 FLEX SIG - COLON CA SCREENING 1952 LIPID TESTING 1950 MEDICARE AWV 12 MONTHS 1952 DTAP/TDAP/TD VACCINES (1 - Tdap) 1971 PNEUMOCOCCAL VACCINE 50+ (1 of 1 - PCV) 2002 ZOSTER VACCINE (1 of 2) 2002 Respiratory Syncytial Virus (RSV) Vaccine Pt: or over 60 yrs (1 - Risk 60-74 years 1-dose series) 2012 AAA SCREENING 2017 COVID-19 VACCINE (1 - 2023-2 5 season) 2024 DEPRESSION SCREENING 08/19/2024 INFLUENZA VACCINE (Season Ended) 2025 HEPATITIS C SCREENING Completed 04/11/2015 HEPATITIS B VACCINE Aged Out No longe r eligible based on patient's age to complete this topic HIB VACCINE Aged Out No longer eligi ble based on patient's age to complete this topic HPV VACCINE Aged Out No longer eligi ble based on patient's age to complete this topic MENINGOCOCCAL (Group B) VACC INE SHARED DECISION-MAKING Aged Out No longer eligibl e based on patient's age to complete this topic MENINGOCOCCAL GROUPS A/C/Y/W VACCINE Aged Out No longer eligible b ased on patient's age to complete this topic Procedures Procedure Name Priority Date/Time Associated Diagnosis Comments HEPATITIS C ANTIBODY Routine 04/11/2015 2:26 PM CDT from Last 3 Months or Most Recently Relevant to Health Maintenance Results * HEPATITIS C ANTIBODY (04/11/2015 2:26 PM CDT) Hepatitis C Antibody NON-REACTI VE NON-REACT [facility] Signal/Cutoff 0.02 <1.00 [facility] Comment: Test Performed at: [facility] [id number] [place] [address] KAREN RODRIGUEZ DO,MPH 04/11/2015 2:26 PM CDT 04/11/2015 2:42 PM CDT Donna Waller MD LAB - CHEMISTRY ORDERA BLESera Edited Result - Final [facility] [id number] from Last 3 Months or Most Recently Relevant to Health Maintenance Insurance MEDICARE [facility]
--- OUTSIDE RECORDS SUMMARY | 2024-12-28 14:30 | XMS_ITS | Clinical Summary ---
Author Organization [facility] Address [address] [place] [address] Care Team Providers Care Personal Financial Planner Name Role Phone Jermain Piña Primary Care Provider [phone] Allergies No known active allergies Medications lisinopril 20 MG tablet Take 20 mg by mouth daily. Active NON FORMULARYIndi cations:hydro chlorothiazid e 20mg oral Daily Indications: hydrochlorothiazide 20mg oral Daily Active vitamin D3, cholecalcifer ol, 5000 UNITS capsule Take 1 capsule by mouth daily. Active multi vitamin/re examiner als (CENTRUM ADULTS) tablet Take 1 tablet by mouth daily. Active aspirin EC (ASPIRIN EC) 81 MG tablet Take 81 mg by mouth daily. Active fluticasone-s almeterol 250-50 MCG/DOSE inhaler Inhale 1 puff into the lungs 2 (two) times daily. Active albuterol 0.63 MG/3ML nebulizer solution albuterol sulfate 0.63 mg/3 mL solution for nebulization Active PROAIR HFA 108 (90 Base) MCG/ACT inhaler 09/16/19 21 Active hydroCHLOROth iazide 25 MG tablet 11/15/19 21 Active triamcinolone 0.1 % cream LOU EXT AA 1 TO 2 XD NEEDED. AVOID FACE AND GROIN 01/13/20 20 Active triamcinolone acetonide (KENALOG) 10 MG/ML injection Kenalog 10 mg/mL suspension for injection In office injection administered by the provider Active fluticasone-s almeterol (ADVAIR DISKUS) 250-50 MCG/DOSE inhaler Advair Diskus 250 mcg-50 mcg/dose powder for inhalation 09/16/19 Active atorvastatin 10 MG tablet TAKE 1 TABLET DAILY 04/20/20 21 Active Active Problems Problem Noted Date Diagnosed Date Other cervical disc degenera tion, unspecified cervical region 12/15/2020 Spinal stenosis of cervical region 12/15/2020 Foraminal stenosis of cervical region 12/15/2020 Syncope, unspecified syncope type 12/15/2020 Facet arthropathy, cervical 11/09/2020 Cervical radiculopathy 11/09/2020 Family History Medical History Relation Comments back problems Brother knee problems Brother No Known Problems Father No Known Problems Mother Asthma Sister chronic fatigue syndrome Sister Relation Status Comments Brother Alive Father Mother Sister Alive Social History Tobacco Use Types Packs/Day Years Used Date Smoking Tobacco: Former Cigarettes Smokeless Tobacco: Never Comments:quit 20 years ago. Alcohol Use Standard Drinks/Week Comments Yes 0 (1 standard drink = 0.6 oz pure alcohol) socially drinks a beer every now and then. Education Answer Date Recorded What is the highest level of school you have completed or the highest degree you have received? Associate degree: academic program 11/09/2020 Sex and Gender Information Value Date Recorded Sex Assigned at Not on file Legal Sex Male 7:55 PM CDT Gender Identity Not on file Sexual Orientation Not on file Occupation Industry Job Start Date Job End Date [employer] prior to [employer] Not on file No t on file Not on file Last Filed Vital Signs Vital Sign Reading Time Taken Comments Blood Pressure 124/63 05/02/2021 10:25 AM CDT Pulse 66 05/02/2021 10:19 AM CDT Temperature 36.8 C (98.2 F) 12/19/2020 10:22 AM CDT Respiratory Rate 20 05/02/2021 10:1 9 AM CDT Oxygen Saturation 94% 05/02/2021 10: 19 AM CDT Inhaled Oxygen Concentration - - Weight 117.3 kg (258 lb 9.6 oz) 05/02/2021 9:58 AM CDT Height 182.9 cm (6') 05/02/2021 9:58 AM CDT Body Mass Index 35.07 05/02/2021 9:58 AM CDT Plan of Treatment Health Maintenance Due Date Last Done Comments Colorectal Cancer Screening Colonoscopy (10 Years) 1950 Hepatitis C 1970 Zoster Vaccines (2 of 3) 07/03/2013 05/08/2013 Annual Medicare Wellness Visit 2017 COVID-19 Vaccine (3 - 2023-2 5 season) 2024 10/18/2020, 09/27/2020 DTaP, Tdap and Td Vaccines ( 2 - Td or Tdap) 09/18/2026 09/18/2016 RSV Immunization or 60+ Years (1 - 1-dose 75+ series) 2027 Pneumococcal Vaccine: 50+ Years Completed 06/25/2018, 09/18/2016 Meningococcal B Vaccine Aged Out No l onger eligible based on patient's age to complete this topic Meningococcal Vaccine Aged Out No scottie brenda eligible based on patient's age to complete this topic RSV Immunizations Under 20 Months Aged Out No longer eligible b ased on patient's age to complete this topic Insurance MEDICARE [facility] Care Teams Personal Financial Planner Relationship Specialty Start Date End Date Jermain Piña PA [address] [place] [address] [id number] PCP - General 05/03/14
--- OUTSIDE RECORDS SUMMARY | 2024-12-28 14:30 | XMS_ITS | Clinical Summary ---
Author Organization [address] Address [address] [place] [id number] Care Team Providers Care Central Supply Clerk Name Role Phone Macarena De Los Santos MD Primary Care Provi nadia Joesph Baldwin MD Unavailable [phone] Alan Little MD Unavailable Harinder Huang MD Unavailable [phone] Allergies Active Allergy Reactions Criticality Noted Date Comments Latex Rash Medium 03/01/2023 States turn hands red [place] Vomiting Low 12/31/2006 Medications cholecalciferol (VITAMIN D-3) 5,000 unit capsule Take 1 capsule (5,000 Units total) by mouth every morning Active multivit-mins/iro n/folic/lycop (CENTRUM MEN ORAL) Take 1 capsule by mouth every morning Active Xhance 93 mcg/actuation aerosol breath activated Administer 1 puff into affected nostril(s) every morning 023 Active rosuvastatin (CRESTOR) 5 mg tabletIndications :Mixed hyperlipidemia TAKE 1 TABLET DAILY 90 tablet 3 024 Active lisinopriL (PRINIVIL,ZESTRIL ) 20 mg tablet TAKE 1 TABLET DAILY 90 tablet 3 024 Active hydroCHLOROthiazi de (HYDRODIURIL) 25 mg tablet TAKE 1 TABLET DAILY 90 tablet 3 024 Active tamsulosin (FLOMAX) 0.4 mg extended release capsule Take 1 capsule (0.4 mg total) by mouth 024 Active finasteride (PROSCAR) 5 mg tablet Take 1 tablet (5 mg total) by mouth daily Active albuterol HFA (PROVENTIL HFA,VENTOLIN HFA,PROAIR HFA) 90 mcg/actuation inhaler USE 2 INHALATIONS EVERY 6 HOURS NEEDED FOR WHEEZING 34 g 1 025 Active benzonatate (TESSALON) 200 mg capsuleIndication s:Subacute cough Take 1 capsule (200 mg total) by mouth 3 (three) times a day as needed for cough keep tessalon out of reach of children, especially children under the age of 10, due to possible serious risk such as if ingested by children under the age of 10. 30 capsule 025 Active fluticasone propion-salmetero L (Wixela Inhub) 250-50 mcg/dose diskus inhaler Inhale 1 puff 2 (two) times a day 1 each 3 025 Active dulaglutide (Trulicity) 0.75 mg/0.5 mL pen injector Inject 0.5 mL (0.75 mg total) under the skin once a week 2 mL 2 025 Active albuterol 2.5 mg /3 mL (0.083 %) nebulizer solutionIndicatio ns:Exacerbation of asthma, unspecified asthma severity, unspecified whether persistent Take 3 mL (2.5 mg total) by nebulization every 6 (six) hours as needed for wheezing 90 mL 3 025 Active gabapentin (NEURONTIN) 100 mg capsuleIndication s:Diabetic polyneuropathy associated with type 2 diabetes mellitus (HCC) Take 2 capsules (200 mg total) by mouth nightly 180 capsule 025 Active Wixela Inhub 250-50 mcg/dose diskus inhaler Inhale 1 puff 2 (two) times a day Rinse mouth with water after use. Do not swallow. 1 each 3 025 2024 Discontinued albuterol 2.5 mg /3 mL (0.083 %) nebulizer solutionIndicatio ns:Exacerbation of asthma, unspecified asthma severity, unspecified whether persistent Take 3 mL (2.5 mg total) by nebulization 4 (four) times a day as needed for wheezing or shortness of breath 3 mL 025 2024 Discontinued gabapentin (NEURONTIN) 100 mg capsuleIndication s:Diabetic polyneuropathy associated with type 2 diabetes mellitus (HCC) Take 2 capsules (200 mg total) by mouth nightly 025 2024 Discontinued(R eorder) dulaglutide (TRULICITY) 0.75 mg/0.5 mL pen injector Inject 0.5 mL (0.75 mg total) under the skin every 7 days 2 mL 1 025 2024 Discontinued Active Problems Problem Noted Date Diagnosed Date Benign prostatic hyperplasia with urinary hesita ncy 11/13/2024 Microalbuminuria 05/07/2024 Type 2 diabetes mellitus wit h microalbuminuria, without long-term current use of insulin 09/19/2023 Assessment & Plan (09/19/2023 8:02 AM WIRE ROLLER): New, but will be chronic We discussed diabetes- treatment options reviewed We discussed metformin, jardiance At this time, he does want to hold off on medicine Will refer to diabetes education- update me if he doesn't hear Requesting referral to Dr Ayers- referral placed Update me with any changes call for quesitons CKD (chronic kidney disease) stage 2, GFR 60-89 ml/min 09/19/2023 Assessment & Plan (09/19/2023 8:07 AM WIRE ROLLER): Chronic, stable Continue lisinopril History of colon polyps 03/14/2023 Assessment & Plan (11/29/2023 11:51 AM CDT): Colonoscopy February 2023 with fair prep, 25 mm tubular adenoma in the cecum that was biopsied but not resected, four other tubular adenomas/sessile serrated adenomas, 3 hyperplastic polyps, diverticulosis, and internal hemorrhoids. Patient underwent colonoscopy by Dr. Baldwin March 2023 with 25 mm polyp growing into the appendiceal orifice, given involvement of the appendiceal orifice endoscopic resection was in feasible and not attempted. Four 4-7 mm tubular adenomas in the transverse colon and at the hepatic flexure removed by cold snare, diverticulosis, and internal hemorrhoids. Patient then underwent laparoscopic partial cecectomy June 2023, pathology consistent with tubular adenoma of the cecum. -repeat colonoscopy February 2026 Assessment & Plan (09/19/2023 7:48 AM WIRE ROLLER): Chronic, improved Repeat colonoscopy in 3 years Assessment & Plan (03/14/2023 8:51 AM CDT): Colonoscopy February 2023 with fair prep, 25 mm tubular adenoma in the cecum that was biopsied but not resected, four other tubular adenomas/sessile serrated adenomas, 3 hyperplastic polyps, diverticulosis, and internal hemorrhoids. -refer for EMR of colon polyp in the cecum that was biopsied but not resected Bilateral cold feet 09/19/2022 Assessment & Plan (09/19/2023 7:46 AM WIRE ROLLER): Chronic, stable Continue supportive care Assessment & Plan (10/18/2022 12:33 PM WIRE ROLLER): Impression: Patient continues to complain of bilateral cold feet. He denies symptoms of claudication, ischemic rest pain or ulcerations to his lower extremity. ABIs performed on 10/11/2022 reveals triphasic waveforms and normal ABIs bilateral lower extremities. Plan: No surgical interventions needed. Patient has a history of bone spurs to his lumbar region and spondylosis. Patient is undergoing nerve conduction testing for peripheral neuropathy. Patient to follow-up on an as-needed basis. Assessment & Plan (09/19/2022 2:35 PM WIRE ROLLER): Bilateral DP pulses, PT pulses not palpable, bilateral ABIs ordered for further evaluation, may just represent inframalleolar or micro vessel disease. Will follow-up in 2-3 weeks after his ABIs. Nephrolithiasis 12/27/2020 Assessment & Plan (09/19/2023 7:50 AM WIRE ROLLER): Chronic, asymptomatic Continue to monitor Assessment & Plan (09/05/2022 8:30 AM WIRE ROLLER): Asymptomatic Continue to follow with urology Assessment & Plan (06/15/2021 9:56 AM CDT): Asymptomatic Continue to follow with urology Assessment & Plan (12/27/2020 7:52 AM CDT): Will check uric acid level Will request records Further guidance once we have the results Call for questions or concerns Other cervical disc degenera tion, unspecified cervical region 12/15/2020 Assessment & Plan (09/19/2023 7:50 AM WIRE ROLLER): Chronic, stable Continue supportive care Assessment & Plan (09/05/2022 8:31 AM WIRE ROLLER): Chronic, improved Continue supportive care Assessment & Plan (06/15/2021 9:49 AM CDT): He has seen pain management and neurosurgery MRI/MRA completed 04/2021 at [facility] Encouraged to continue to follow with them for guidance Call to set up follow up to review his symptoms-no improvement Call for questions or concerns Spinal stenosis, cervical region 12/15/2020 Assessment & Plan (09/19/2023 7:51 AM WIRE ROLLER): Chronic, stable Continue supportive care Assessment & Plan (09/05/2022 8:32 AM WIRE ROLLER): Chronic, stable Continue supportive care Assessment & Plan (06/15/2021 9:57 AM CDT): He has seen pain management and neurosurgery MRI/MRA completed 04/2021 at [facility] Encouraged to continue to follow with them for guidance Call to set up follow up to review his symptoms-no improvement Call for questions or concerns Facet arthropathy, cervical 11/09/2020 Assessment & Plan (09/19/2023 7:48 AM WIRE ROLLER): Chronic, improved Continue supportive care Assessment & Plan (09/05/2022 8:28 AM WIRE ROLLER): Chronic, stable Continue supportive care Assessment & Plan (06/15/2021 9:53 AM CDT): He has seen pain management and neurosurgery MRI/MRA completed 04/2021 at [facility] Encouraged to continue to follow with them for guidance Call to set up follow up to review his symptoms-no improvement [facility] Call for questions or concerns Type 2 diabetes mellitus wit h stage 2 chronic kidney disease, without long-term current use of insulin 10/31/2020 Assessment & Plan (09/19/2023 8:07 AM WIRE ROLLER): New, but will be chronic Reviewed risks of diabetes Eye exam completed recently, will review the results We discussed jardiance Encouraged healthy changes-low carb Further guidance once we have the results Assessment & Plan (07/24/2023 9:04 AM WIRE ROLLER): Chronic, stable Continue low carb diet Follow up labs ordered Assessment & Plan (09/05/2022 8:29 AM WIRE ROLLER): Chronic, worse We reviewed healthy changes like working as low carb diet with his Update me with changes Assessment & Plan (06/15/2021 9:54 AM CDT): Pt's last A1C was at goal Continue healthy changes Assessment & Plan (10/31/2020 10:04 AM CDT): A1C normal Encouraged low carb diet Call for questions or concerns Mixed hyperlipidemia 10/31/2020 Assessment & Plan (09/19/2023 7:49 AM WIRE ROLLER): Chronic, improved Continue crestor Assessment & Plan (07/24/2023 9:04 AM WIRE ROLLER): Chronic, stable Continue crestor Assessment & Plan (10/18/2022 12:30 PM WIRE ROLLER): Impression: Chronic hyperlipidemia. Plan: Continue Crestor 5 mg. Assessment & Plan (09/19/2022 2:36 PM WIRE ROLLER): Stable continue Crestor 5 mg Assessment & Plan (09/05/2022 8:26 AM WIRE ROLLER): Chronic, uncontrolled Pt off medication currently secondary to leg cramps Will do a trial of crestor every other day Recheck labs in 4-6 weeks Assessment & Plan (06/15/2021 9:52 AM CDT): LDL less than 100 Continue healthy changes Continue lipitor Assessment & Plan (12/27/2020 7:51 AM CDT): Repeat labs ordered Continue lipitor regimen for now Call for questions or concerns Assessment & Plan (10/31/2020 10:05 AM CDT): CVD score 20.9% Will start lipitor 10 mg daily Recheck labs in 3 months Call for questions or concerns Dizziness 10/18/2020 Assessment & Plan (09/19/2023 7:46 AM WIRE ROLLER): Chronic, stable Continue supportive care Assessment & Plan (09/05/2022 8:24 AM WIRE ROLLER): Chronic, now improved Continue to monitor Update me with any changes Assessment & Plan (06/15/2021 9:51 AM CDT): Intermittent symptoms-improving He has seen cardiology-work up without a source Continue to monitor symptoms Assessment & Plan (10/18/2020 2:54 PM WIRE ROLLER): Will check labs for possible pathology Consider imaging Will check EKG Change positions slowly Stay hydrated Follow up with [facility] after the labs Call for questions or concerns Essential hypertension 04/15/2020 Assessment & Plan (09/19/2023 7:46 AM WIRE ROLLER): Chronic, stable Continue current regimen Assessment & Plan (07/24/2023 9:03 AM WIRE ROLLER): Chronic, stable Continue current regimen Continue healthy changes Assessment & Plan (10/18/2022 12:30 PM WIRE ROLLER): Impression: Chronic hypertension. Plan: Continue lisinopril 20 mg and hydrochlorothiazide 25 mg. Assessment & Plan (09/19/2022 2:36 PM WIRE ROLLER): Stable continue lisinopril 20 mg Assessment & Plan (09/05/2022 8:28 AM WIRE ROLLER): Chronic, stable Continue current regimen Call for questions Assessment & Plan (06/15/2021 9:53 AM CDT): Blood pressure at goal Continue lisinopril and HCTZ Continue healthy changes Class 1 obesity due to exces s calories with serious comorbidity and body mass index (BMI) of 33.0 to 33.9 in adult 01/13/2020 Assessment & Plan (11/13/2024 1:18 PM CDT): Chronic, stable BMI Follow-up includes: education provided. Assessment & Plan (10/06/2024 12:32 PM WIRE ROLLER): Chronic, stable BMI Follow-up includes: nutrition counseling. Assessment & Plan (09/03/2024 7:25 AM WIRE ROLLER): Chronic, stable BMI Follow-up includes: nutrition counseling. We discussed low carb given holding his jardiance Assessment & Plan (09/19/2023 7:47 AM WIRE ROLLER): Chronic, stable BMI Follow-up includes: nutrition counseling. Assessment & Plan (07/24/2023 9:02 AM WIRE ROLLER): Chronic, improved Continue a low carb diet BMI Follow-up includes: nutrition counseling. Assessment & Plan (09/05/2022 8:24 AM WIRE ROLLER): BMI Follow-up includes: nutrition counseling. Assessment & Plan (06/15/2021 9:50 AM CDT): BMI Follow-up includes: nutrition counseling. Assessment & Plan (01/13/2020 2:44 PM CDT): BMI Follow-up includes: nutrition counseling. Mild persistent asthma with acute exacerbation 0 10/04/2017 Assessment & Plan (09/19/2023 7:49 AM WIRE ROLLER): Chronic, stable Continue wixela, albuterol Assessment & Plan (09/05/2022 8:30 AM WIRE ROLLER): Chronic, improved Continue inhalers as prescribed Update me with any changes Assessment & Plan (06/15/2021 9:56 AM CDT): Currently doing well with his inhalers Continue current regimen Lumbago 03/26/2017 Assessment & Plan (09/19/2023 7:48 AM WIRE ROLLER): Chronic, stable Continue supportive care Assessment & Plan (09/05/2022 8:29 AM WIRE ROLLER): Chronic, improved Continue supportive care Assessment & Plan (06/15/2021 9:55 AM CDT): Chronic discomfort He does not want medication, and is working on healthy changes Continue supportive care for now Arthritis 08/30/2016 Assessment & Plan (09/19/2023 7:45 AM WIRE ROLLER): Chronic, stable Continue supportive care Assessment & Plan (09/05/2022 8:21 AM WIRE ROLLER): Chronic Continue supportive care Update me if his s/sx change or worsen Assessment & Plan (06/15/2021 9:43 AM CDT): Currently on tylenol as needed Continue supportive care ED (erectile dysfunction) 08/30/2016 Assessment & Plan (09/19/2023 8:43 AM WIRE ROLLER): Chronic, stable Follow up with urology Assessment & Plan (09/05/2022 8:27 AM WIRE ROLLER): Chronic, uncontrolled He is not needing medication just yet Will reach out if he is interested Assessment & Plan (06/15/2021 9:52 AM CDT): Continue to follow with urology Update me with any changes Encounter for Medicare annual wellness exam 08/19 Overview (11/13/2024): Encouraged healthy diet and activity He is updating his living will/POA Health Maintenance: Last PSA: 09/10, 09/12- WNL Last colonoscopy: 2017, 04/10-repeat in 3 years Last Tdap: 08/2016 Last pneumonia: up to date Last Shingrix: zoster Last Flu: up to date Last COVID: up to date Assessment & Plan (11/13/2024 1:07 PM CDT): Encouraged healthy diet and activity He is updating his living will/POA Health Maintenance: Last PSA: 09/10, 09/12- WNL Last colonoscopy: 2017, 04/10-repeat in 3 years Last Tdap: 08/2016 Last pneumonia: up to date Last Shingrix: zoster Last Flu: up to date Last COVID: up to date Assessment & Plan (09/19/2023 7:45 AM WIRE ROLLER): Encouraged healthy diet and activity He is updating his living will/POA Health Maintenance: Last PSA: 09/10- WNL Last colonoscopy: 2017, 04/10-repeat in 3 years Last Tdap: 08/2016 Last pneumonia: up todate Last Shingrix: zoster Last Flu: up to date Last COVID: up to date Assessment & Plan (09/05/2022 8:17 AM WIRE ROLLER): Encouraged healthy diet and activity Wear sun screen, seat belts He is updating his living will/POA Health Maintenance: Last PSA: ordered Last colonoscopy: 2018- repeat on 5 years- referral placed Last Tdap: 08/2016 Last pneumonia: up todate Last Shingrix: zoster Last Flu: up to date Last COVID: up to date Assessment & Plan (06/15/2021 9:45 AM CDT): Encouraged healthy diet and activity Wear sun screen, seat belts Health Maintenance: Last PSA: ordered Last colonoscopy: 2017- repeat ion 5 years Last Tdap: 08/2016 Last pneumonia/Prevnar: up todate Last Shingrix: zoster- up to date Last Flu: up to date Last COVID: up to date Vitamin D deficiency 08/30/2016 Assessment & Plan (09/19/2023 7:59 AM WIRE ROLLER): Chronic, stable Continue replacement Assessment & Plan (09/05/2022 8:33 AM WIRE ROLLER): Chronic, stable Continue replacement Assessment & Plan (06/15/2021 9:58 AM CDT): Lab ordered Obstructive sleep apnea 09/22/2015 Assessment & Plan (09/19/2023 7:52 AM WIRE ROLLER): Chronic, uncontrolled He was not able to tolerate CPAP Encouraged to consider sleep medicine follow up Assessment & Plan (09/05/2022 8:31 AM WIRE ROLLER): Chronic, uncontrolled He is off CPAP Encouraged to follow up with pulmonary-reviewed the risks of uncontrolled Assessment & Plan (06/15/2021 9:56 AM CDT): Not able to tolerate CPAP Encouraged to consider retesting 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 09/09/2015 Overview (04/15/2020): IMO load Assessment & Plan (09/19/2023 7:52 AM WIRE ROLLER): Chronic, stable Continue supportive care Assessment & Plan (09/05/2022 8:32 AM WIRE ROLLER): Chronic, stable Continue supportive care Assessment & Plan (06/15/2021 9:57 AM CDT): He has seen pain management and neurosurgery MRI/MRA completed 04/2021 at [facility] Encouraged to continue to follow with them for guidance Call to set up follow up to review his symptoms-no improvement Call for questions or concerns Assessment & Plan (10/18/2020 2:53 PM WIRE ROLLER): xrays reviewed Will check MRI for further evaluation Consider physical therapy or pain management Continue supportive care Call for questions or concerns Spondylosis of lumbar region without myelopathy or radiculopathy 09/09/2015 Overview (04/15/2020): IMO load Assessment & Plan (09/19/2023 7:52 AM WIRE ROLLER): Chronic, stable Continue supportive care Assessment & Plan (09/05/2022 8:33 AM WIRE ROLLER): Chronic, improved Continue supportive care Update me if anything changes or worsen Assessment & Plan (06/15/2021 9:57 AM CDT): He has seen pain management and neurosurgery MRI/MRA completed 04/2021 at [facility] Encouraged to continue to follow with them for guidance Call to set up follow up to review his symptoms-no improvement Call for questions or concerns Cervical radiculopathy 07/13/2015 Assessment & Plan (09/19/2023 7:45 AM WIRE ROLLER): Chronic, stable Continue supportive care Assessment & Plan (09/05/2022 8:22 AM WIRE ROLLER): Chronic, improved Continue supportive care Update me if it changes or worsens Assessment & Plan (06/15/2021 9:48 AM CDT): He has seen pain management and neurosurgery MRI/MRA completed 04/2021 at [facility] Encouraged to continue to follow with them for guidance Call to set up follow up to review his symptoms-no improvement Call for questions or concerns Chronic gout without tophus 04/11/2015 Assessment & Plan (09/19/2023 7:47 AM WIRE ROLLER): Chronic, improved No acute flares Continue to monitor Assessment & Plan (09/05/2022 8:23 AM WIRE ROLLER): Chronic, asymptomatic Continue to monitor Assessment & Plan (06/15/2021 12:39 PM CDT): Continue to monitor Resolved Problems Problem Noted Date Diagnosed Date Resolved Date Cecal polyp 07/08/2023 09/19/2023 Other acute recurrent sinusitis 01/13/2020 10/18/2020 Assessment & Plan (01/13/2020 2:43 PM CDT): Augmentin Will refer to ent Tylenol/ibuprofen as needed Increase fluids, rest and handwashing Warm saltwater gargles Hot water/hot tea with honey Saline rinses to nose at least twice daily No sharing cups or utensils Cool mist humidifier May use vicks vaporub on chest and feet as needed to help with cough Please call if symptoms change or worsen, to the ER for anything emergent Allergic contact dermatitis due to plant 01/13/2020 10/18/2020 Assessment & Plan (01/13/2020 2:51 PM CDT): Will start a steroid cream Call if symptoms change or worsen Call for questions or concerns Pain in joint of right shoulder 06/08/2019 09/19/2023 CN (constipation) 10/23/2018 10/31/2020 Mild intermittent asthma with exacerbation 10/23/2018 10/18/2020 Lateral epicondylitis of left elbow 07/16/2018 09/19/2023 Assessment & Plan (06/15/2021 9:54 AM CDT): resolved De Quervain's disease (radia l styloid tenosynovitis) 05/21/2018 09/05/2022 Assessment & Plan (06/15/2021 9:50 AM CDT): resolved Obesity with body mass index 30 or greater 03/26/2017 10/18/2020 Arthralgia of multiple joints 03/26/2017 10/18/2020 Generalized osteoarthritis 03/26/2017 1 Dysmetabolic syndrome X 12/06/201610/17 Paresthesia of skin 07/13/2015 09/19/19 24 Other malaise 06/02/2015 06/15/2021 Other chronic pain 04/11/2015 Assessment & Plan (06/15/2021 9:57 AM CDT): Continue to follow with pain management Encounters Date Type Department Care Team Description 12/14/2024 Orders Only [address] [phone] Macarena De Los Santos MD Type 2 diabetes mellitus with stage 2 chronic kidney disease, without long-term current use of insulin (HCC) (Primary Dx) 12/08/2024 Orders Only [address] [phone] Macarena De Los Santos MD Diabetic polyneuropathy associated with type 2 diabetes mellitus (HCC) 11/19/2024 Orders Only [address] [phone] Macarena De Los Santos MD 11/17/2024 Orders Only [address] [phone] Macarena De Los Santos MD 11/15/2024 Results Follow-Up [address] [phone] Macarena De Los Santos MD 11/13/2024 1:55 PM CDT Lab [facility] [address] [place] [id number] Diabetic polyneuropathy associated with type 2 diabetes mellitus (HCC); Type 2 diabetes mellitus with stage 2 chronic kidney disease, without long-term current use of insulin (HCC); CKD (chronic kidney disease) stage 2, GFR 60-89 ml/min; Diabetic nephropathy (HCC) 11/13/2024 12:45 PM CDT Office Visit [address] [phone] Macarena De Los Santos MD Encounter for Medicare annual wellness exam (Primary Dx); Mild persistent asthma with acute exacerbation; Type 2 diabetes mellitus with stage 2 chronic kidney disease, without long-term current use of insulin (HCC); Type 2 diabetes mellitus with microalbuminuria, without long-term current use of insulin (HCC); Controlled type 2 diabetes with neuropathy (HCC); Diabetic polyneuropathy associated with type 2 diabetes mellitus (HCC); CKD (chronic kidney disease) stage 2, GFR 60-89 ml/min; Essential hypertension; Benign prostatic hyperplasia with urinary hesitancy; Spondylosis of lumbar region without myelopathy or radiculopathy; Spondylosis of cervical region without myelopathy or radiculopathy; Bilateral hearing loss, unspecified hearing loss type; Skin lesions; Mixed hyperlipidemia; Obstructive sleep apnea; Microalbuminuria; Class 1 obesity due to excess calories with serious comorbidity and body mass index (BMI) of 33.0 to 33.9 in adult 11/12/[address] [phone] Macarena De Los Santos MD Medical Question/Felisacellhan s 11/04/2024 Results Follow-Up [facility] at [address] [phone] Ema Mo NP 11/03/2024 12:47 PM CDT - 11/03/2024 11:59 PM CDT Hospital Encounter [address] [phone] Subacute cough Discharge Disposition: Discharge to home or self care 11/03/2024 12:45 PM CDT Ancillary Procedure [facility] at [address] [phone] Subacute cough 11/03/2024 12:30 PM CDT Office Visit [facility] at [address] [phone] Ema Mo NP Exacerbation of asthma, unspecified asthma severity, unspecified whether persistent (Primary Dx); Subacute cough 11/03/2024 Results Follow-Up [facility] at [address] [phone] Ema Mo NP 11/03/2024 Nurse Triage [address] [phone] Macarena De Los Santos MD 10/21/2024 9:45 AM WIRE ROLLER Lab [facility] [address] [place], [place] [id number] CKD (chronic kidney disease) stage 2, GFR 60-89 ml/min; Diabetic nephropathy (HCC) 10/21/2024 Results Follow-Up [facility] at [address] [place] [address] Iraj Ballesteros MD CKD (chronic kidney disease) stage 2, GFR 60-89 ml/min (Primary Dx); Diabetic nephropathy (HCC) 10/06/2024 12:15 PM WIRE ROLLER Telemedicine [facility] [address] [phone] Macarena De Los Santos MD Acute non-recurrent sinusitis of other sinus (Primary Dx); Mild persistent asthma with acute exacerbation; Class 1 obesity due to excess calories with serious comorbidity and body mass index (BMI) of 33.0 to 33.9 in adult 10/05/2024 Telephone [facility] [address] [id number] Macarena De Los Santos MD Symptom Based Call from Last 3 Months Immunizations Immunization Administration Dates Next Due COVID-19 MRNA (MODERNA) .5 M L (50 MCG) VACCINE (12 YEARS AND UP) 05/06/2023 Hep A, Adult 05/08/2013,06/19/1996 Influenza, Quadrivalent, Hig h Dose, Preservative Free, Intrr 05/06/2023,05/16/2022,05/11/2021,05/17 Influenza, Quadrivalent, Spl it, Intramuscular 06/11/2014 Influenza, Quadrivalent, Spl it, Preservative Free, Intramuscular 06/13/2015 Influenza, Split 07/11/2010,07/07/2005 Influenza, Trivalent, High D ose, Split, Preservative Free, Intramuscular 06/24/2019,06/13/2018 Influenza, Trivalent, IM (MDV) 09/18/2016 Influenza, Trivalent, Preser vative Free, Intramuscular 08/28/2017,06/05/2013 Influenza, Unspecified 05/19/2024,2023(Deferred: Patient decision),05/11/2021,06/24/2019 Moderna Sars-cov-2 Bivalent Vaccine 50 Mcg/0.5 mL (12+ YRS)-Blue/Bo 08/03/2022 OPV 01/17/1979 Pfizer SARS-CoV-2 Monovalent Vaccination (12+ Yrs) PURPLE 05/11/2021,10/18/2020,09/27/2020 Pfizer Sars-Cov-2 Bivalent V accination (12+ YRS) 04/26/2022 Pneumococcal Conjugate PCV 13 09/18/2016 Pneumococcal Polysaccharide PPV23 06/25/2018 RSV Vaccine, Pref, Recombina nt, Subunit, Adjuvanted, PF, IM (Arexvy) 06/05/2023 RSV, Bivalent, Protein Subun it Rsvpref, Diluent (Abrysvo) 06/05/2023 Smallpox 08/19/1983 Td, adsorbed 10/18/1983 Tdap 09/18/2016 Typohid AKD SQ 01/17/1979 Yellow Fever 08/19/1972 ZOSTER LIVE 05/08/2013 ZOSTER Recombinant 08/03/2023,06/05/2023 Surgical History Surgery Date Site/Laterality Comments SINUS SURGERY 01/18/2020 KNEE SURGERY Bilateral TOE AMPUTATION 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 COLONOSCOPY APPENDECTOMY Jul 2023 KNEE ARTHROSCOPY W/ LATERAL RELEASE January 2022 CATARACT EXTRACTION 2017 Medical History Medical History Date Comments Kidney stone Hypertension Hyperlipidemia Asthma De Quervain's disease (radial styloid tenosynovi tis) 05/21/2018 Sinus infection Colon polyp Sleep apnea Arthritis Glaucoma Cecal polyp 07/08/2023 Pain in joint of right shoulder 06/08/2019 Paresthesia of skin 07/13/2015 Lateral epicondylitis of left elbow 07/16/2018 Other chronic pain 04/11/2015 Family History Medical History Relation Name Comments Osteoarthritis Brother Family histor y of osteoarthritis - (Added by TW Conv) Anesthesia problems Daughter woke up early during surgery Alcohol abuse Father Bruce Brothmiko Cancer Father Bruce Brothmiko Heart attack Father Bruce Brothmiko Heart disease Father Bruce Brothers Osteoarthritis Father Bruce Brothmiko Family his tory of osteoarthritis - (Added by TW Conv) Throat cancer Father Bruce Brothers Arthritis Mother Sofy Brothmiko Asthma Mother Sofyhaim Song Heart attack Mother Sofy Brothers Heart disease Mother Sofy Brothers Osteoarthritis Mother Sofy Brothers Family h istory of osteoarthritis - (Added by TW Conv) Osteoarthritis Sister 1 Family histor y of osteoarthritis - (Added by TW Conv) Gout Sister 2 Family history of gout - (Added by TW Conv) Fibromyalgia Sister 3 Family history of fibromyalgia - (Added by TW Conv) Relation Name Status Comments Brother Daughter Other Father Bruce Brothers Mother Sofy Brothers Sister 1 Sister 2 Sister 3 Social History Tobacco Use Types Packs/Day Years Used Date Smoking Tobacco: Former Cigarettes 0.5 8 0 01/12/1965 - 01/12/1973 Smokeless Tobacco: Never Tobacco Cessation:Counseling Given: Not Answered Alcohol Use Standard Drinks/Week Comments Yes 1 [...] on file Legal Sex Male 10:41 PM WIRE ROLLER Gender Identity Male 10/18/2020 6:17 AM WIRE ROLLER Sexual Orientation Straight 10/18/2020 6: 17 AM WIRE ROLLER Obstetrics History Last Filed Vital Signs Vital Sign Reading Time Taken Comments Blood Pressure 108/70 11/13/2024 12:49 PM CDT Pulse 80 11/13/2024 12:49 PM CDT Temperature 36.4 C (97.5 F) 11/13/2024 12:49 PM CDT Respiratory Rate 12 11/13/2024 12:49 PM CDT Oxygen Saturation 96% 11/13/2024 12:49 PM CDT Inhaled Oxygen Concentration - - Weight 112.5 kg (248 lb) 11/13/2024 12:49 PM CDT Height 182.9 cm (6') 11/13/2024 12:49 PM CDT Body Mass Index 33.63 11/13/2024 12:49 PM CDT Plan of Treatment Health Maintenance Due Date Last Done Comments Hepatitis B Screening 1968 Covid-19 Vaccine (2023-2 5 season) 2024 05/06/2023, 08/03/2022, 06/25/2022, Additional history exists Hemoglobin A1C 05/16/2025 11/13/2024, 08/19, 05/04/2024, Additional history exists Dilated Eye Exam 08/28/2025 08/28/2024 Lipid Panel 08/31/2025 08/31/2024, 08/20, 11/02/2022, Additional history exists Albumin Creatinine Ratio, Urine 10/21/2025 10/21/2024, 08/31/2024, 05/04/2024, Additional history exists eGFR 10/21/2025 10/21/2024, 08/19, 05/04/2024, Additional history exists Depression Screening 11/13/2025 11/13/2024, 11/13/2024, 10/06/2024, Additional history exists Fall Risk Assessment 11/13/2025 11/13/2024, 09/03/2024, 09/19/2023, Additional history exists Foot Exam 11/13/2025 11/13/2024, 10/18, 05/07/2024, Additional history exists Well Visit 65+ 11/13/2025 11/13/2024, 0208/2023, 09/19/2023, Additional history exists Colon Cancer Screening-Colonoscopy 04/09/2026 04/09/2023, 02/26/2023 DTaP/Tdap/Td Vaccine (2 - Td or Tdap) 09/18/2026 09/18/2016, 10/18/1983 Pneumococcal vaccine 65+ Completed 06/25/2018, 08/21 Hepatitis C Screening Completed 04/13/2020 Colon Cancer Screening-CT Colonography Discontinued 04/09/2023, 02/26/2023 Colon Cancer Screening-DNA Stool Discontinued 04/09/2023, 02/26/2023, 04/26/2020 Colon Cancer Screening-FIT Discontinued 04/09, 02/26/2023, 04/26/2020 Colon Cancer Screening-Sigmoidoscopy Discontinued 04/09/2023, 02/26/2023 Abdominal Aortic Aneurysm (A AA) Screen Completed 07/08/2023, 01/23/2021 Zoster Vaccine Completed 08/03/2023, 05/19, 05/08/2013 Influenza Vaccine Completed 05/19/2024, , 05/16/2022, Additional history exists Prostate Cancer Screening-PSA Discontinued , 09/10/2023, 09/06/2022, Additional history exists Procedures Procedure Name Priority Date/Time Associated Diagnosis Comments VITAMIN B12 Routine 11/13/2024 2:20 PM CDT Diabetic polyneuropathy associated with type 2 diabetes mellitus (HCC) HEMOGLOBIN A1C Routine 11/13/2024 2:13 PM CDT Type 2 diabetes mellitus with stage 2 chronic kidney disease, without long-term current use of insulin (HCC) XR CHEST PA LATERAL 2 VIEWS Schedule ISADORA, Read ISADORA (Appt Today, Awaiting Results) 11/03/2024 12:57 PM CDT Subacute cough INFLUENZA A/B, RSV, AND COVID-19 PCR Routine 11/03/2024 12:47 PM CDT Subacute cough EGFR Routine 10/21/2024 10:05 AM WIRE ROLLER CKD (chronic kidney disease) stage 2, GFR 60-89 ml/min BASIC METABOLIC PANEL Routine 10/21/2024 10:05 AM WIRE ROLLER CKD (chronic kidney disease) stage 2, GFR 60-89 ml/min ALBUMIN CREATININE RATIO, URINE Routine 10/21/2024 10:05 AM WIRE ROLLER CKD (chronic kidney disease) stage 2, GFR 60-89 ml/min Diabetic nephropathy (HCC) LIPID PANEL Routine 08/31/2024 10:58 AM WIRE ROLLER Type 2 diabetes mellitus with stage 2 chronic kidney disease, without long-term current use of insulin (HCC) PSA SCREEN Routine 08/31/2024 10:58 AM WIRE ROLLER Screening for prostate cancer HM DIABETES EYE EXAM Routine 08/28/2024 CT ABDOMEN PELVIS W CONTRAST Schedule Routine, Read Routine (OP Routine) 07/08/2023 3:20 PM WIRE ROLLER Cecal polyp COLONOSCOPY 04/09/2023 1:36 PM CDT HEPATITIS C ANTIBODY Routine 04/13/2020 9:25 AM CDT Encounter for Medicare annual wellness exam Encounter for hepatitis C screening test for low risk patient from Last 3 Months or Most Recently Relevant to Health Maintenance Results * Vitamin B12 (11/13/2024 2:20 PM CDT) Vitamin B12 810 230 - 1,250 pg/mL Comment:Testing performed by : [facility], [address] [place] [address]., [address] Blood 11/13/2024 2:20 PM CDT 11/13/2024 6:23 PM CDT us Macarena De Los Santos MD LAB BLOOD ORDERABLE S Final Result PATRICE [address] [facility] Department [place] [address] * (ABNORMAL) Hemoglobin A1c (11/13/2024 2:13 PM CDT) Hgb A1C 7.3(H) 4.0 - 5.6 % Comment:Testing performed by : [address] [address] Estimated Average Glucose 163 mg/dL PATRICE LAWLER Comment: The ADA recommends reporting an estimated Average Glucose (eAG) with all Hemoglobin A1c results using the equation derived from a study of 507 normal and diabetic adults. Minority populations were underrepresented and children were not included. (Diabetes Care 31:1047-1948, 2008). The eAG is not equivalent to a fasting glucose. Testing performed by: [facility], [address] [place] [address]., [address] Blood 11/13/2024 2:13 PM CDT 11/13/2024 6:23 PM CDT us Macarena De Los Santos MD LAB BLOOD ORDERABLE S Final Result PATRICE [address] [facility] Department [place] [address] * XR Chest PA Lateral 2 Views (11/03/2024 12:57 PM CDT) Anatomical Region Laterality Modality Body, Chest N/A Digital Radiogra phy 11/03/2024 2:24 PM CDT Narrative 11/03/2024 2:24 PM CDT EXAM DESCRIPTION: XR CHEST PA LATERAL 2 VIEWS REASON FOR STUDY: cough, 1 month Pt complains of cough x 1 month. Hx asthma. No copd,cancer,heart disease. No chest surgery. Socially smoked as a teenager TECHNIQUE: 2 radiographic view(s) of the chest. COMPARISON: None FINDINGS: LUNGS: No focal opacity, pleural effusion, or pneumothorax. HEART/MEDIASTINUM: Cardiac silhouette normal in size. Mediastinal and hilar contours appear normal. LINES/TUBES: None. BONES: No acute osseous abnormality. IMPRESSION: No acute cardiopulmonary abnormality. THIS IS AN ELECTRONICALLY VERIFIED FINAL REPORT 11/03/2024 2:24 PM - Electronically signed by Bhavana Maddox M.D. FT T: Report ID: [id number] Reading Location: [id number] Procedure Note Bhavana Galarza MD - 11/03/2024 EXAM DESCRIPTION: XR CHEST PA LATERAL 2 VIEWS REASON FOR STUDY: cough, 1 month Pt complains of cough x 1 month. Hx asthma. No copd,cancer,heart disease.No chest surgery. Socially smoked as a teenager TECHNIQUE: 2 radiographic view(s) of the chest. COMPARISON: None FINDINGS: LUNGS: No focal opacity, pleural effusion, or pneumothorax. HEART/MEDIASTINUM: Cardiac silhouette normal in size. Mediastinal andhilar contours appear normal. LINES/TUBES: None. BONES: No acute osseous abnormality. IMPRESSION: No acute cardiopulmonary abnormality. THIS IS AN ELECTRONICALLY VERIFIED FINAL REPORT 11/03/2024 2:24 PM - Electronically signed by Bhavana Maddox M.D. FT T: Report ID: [id number] Reading Location: [place] [address] [employer] IMG XR PROCEDURES Final Result * Influenza A/B, RSV, and COVID-19 PCR Nasopharyngeal (11/03/2024 12:47 PM CDT) [facility] COVID-19 RNA Negative Negative Influenza A RNA Negative Negative [facility] Influenza B RNA Negative Negative [facility] RSV RNA Negative Negative [facility] Comment: Interpretive data: Testing performed by [facility]. This test is performed using the Promodity Xpert Xpress CoV-2/Flu/RSV plus assay. This is a multiplex, real-time reverse transcriptase PCR assay intended for the qualitative detection of nucleic acid from SARS-CoV-2, influenza A, influenza B, and respiratory syncytial virus. This assay has been cleared by the [place] Food and Drug administration. The performance characteristics have been verified by the [facility]. Results must be considered in the clinical context, and a negative result does not rule out infection. Interpretive Data last revised 2023 Nasopharyngeal 11/03/2024 12 :47 PM CDT 11/03/2024 7:28 PM CDT Narrative [facility] - 11/03/2024 8:15 PM CDT Is the Patient experiencing symptoms consistent with COVID?->Yes Reason for testing?->Symptomatic Known exposure to confirmed or suspected COVID-19 case?->No us Ema Mo [employer] LAB MICROBIOLOGY - GENERAL ORDHaim ELLISON Final Result Performing Organization Address City/[facility]/ZIP Co de Phone Number PATRICE WISE [address] Department [place] [address] [place] * eGFR (10/21/2024 10:05 AM WIRE ROLLER) eGFR 69 >=60 mL/min/1. 73 m2 Comment: Interpretive Data Reference Interval Normal >/= 90 mL/min/1.73m2 Mildly decreased* 60 - 89 mL/min/1.73m2 Mildly to moderately decreased 45 - 59 mL/min/1.73m2 Moderately to severely decreased 30 - 44 mL/min/1.73m2 Severely decreased 15 - 29 mL/min/1.73m2 Kidney Failure < 15 mL/min/1.73m2 *Relative to young adult level Estimated glomerular filtration rate is determined by the 2020 CKD-EPI equation recommended by the National Kidney Foundation (A Unifying Approach to GFR Estimation: Recommendations of the NKF-ASK Task Force on Reassessing the Inclusion of Race in Diagnosing Kidney Disease, JASN 2020). The CKD-EPI equation should not be used for patients with unstable renal function and has not been validated in children and those over 70. Current interpretive data was last reviewed 2021. Testing performed by: [address] [address] Blood 10/21/2024 10:0 5 AM WIRE ROLLER 10/21/2024 10:12 AM WIRE ROLLER us Iraj Ballesteros MD LAB BLOOD ORDERABLES Final Re sult PATRICE [address] [facility] Department [place] [address] * (ABNORMAL) Albumin Creatinine Ratio, Urine (10/21/2024 10:05 AM WIRE ROLLER) Albumin Ur 122.0 mg/L Comment: Interpretive Data No reference range established. Current interpretive data was last revised 2018. Testing performed by: [address] [address] Creatinine Ur 141.0 mg/dL PATRICE Comment: Interpretive Data No reference range established. Current interpretive data was last revised 2018. Testing performed by: [address] [address] Albumin Creatinine Ratio, Ur 87(H) 1 - 29 mg/g PATRICE Comment:Testing performed by : [address] [address] Urine 10/21/2024 10:0 5 AM WIRE ROLLER 10/21/2024 10:10 AM WIRE ROLLER us Iraj Ballesteros MD LAB URINE ORDERABLES Final Re sult PATRICE [facility] Department [place] [address] * (ABNORMAL) Basic metabolic panel (10/21/2024 10:05 AM WIRE ROLLER) Sodium 139 135 - 145 mmol/L Comment:Testing performed by : [address] [address] Potassium, pl 3.8 3.3 - 4.9 mmol/L PATRICE Comment:Testing performed by : [address] [address] Chloride 100 97 - 110 mmol/L PATRICE Comment:Testing performed by : [address] [address] CO2 27 22 - 32 mmol/L PATRICE Comment:Testing performed by : [address] [address] Anion gap 12 2 - 15 mmol/L PATRICE Comment:Testing performed by : [address] [address] BUN 17 6 - 25 mg/dL PATRICE Comment:Testing performed by : [address] [address] Creatinine 1.13 0.80 - 1.30 mg/dL PATRICE Comment:Testing performed by : [address] [place] [address] Glucose 222(H) 70 - 199 mg/dL PATRICE LAWLER Comment: Interpretive Data Fasting glucose >/= 126 mg/dl is diagnostic for diabetes. Fasting is defined as no caloric intake for at least 8 hours. Fasting glucose between 100 mg/dl to 125 mg/dl is diagnostic of prediabetes. In a patient with classic symptoms of hyperglycemia or hyperglycemic crisis, a random glucose >/= 200 mg/dl is diagnostic for diabetes. In the absence of unequivocal hyperglycemia, results should be confirmed by repeat testing. The classification and Diagnosis of Diabetes Diabetes Care 202; 46: S19-S40. Current interpretive data was last revised 2022. Testing performed by: [facility], [address] [place] [address]., [address] Calcium 9.9 8.5 - 10.3 mg/dL PATRICE Comment:Testing performed by : [address] [address] Blood 10/21/2024 10:0 5 AM WIRE ROLLER 10/21/2024 10:12 AM WIRE ROLLER us Iraj Ballesteros MD LAB BLOOD ORDERABLES Final Re sult PATRICE [address] [facility] Department [place] [address] * PSA screen (08/31/2024 10:58 AM WIRE ROLLER) PSA-Total 2.44 <=6.20 ng/mL Comment: Interpretive Data AGE SEX REFERENCE INTERVAL 0 minutes-150 years Female None 0 minutes-49 years Male None 50-59 years Male 0-3.90 60-69 years Male 0-5.40 70-79 years Male 0-6.20 80-150 years Male 0-6.20 The Robel PSA Total assay procedure was used. Results from different manufacturers or methods may not be comparable. Serial testing should be performed using the same method. Current interpretive data last revised 21. Blood 08/31/2024 10:5 8 AM WIRE ROLLER 08/31/2024 5:02 PM WIRE ROLLER us Macarena De Los Santos MD LAB BLOOD ORDERABLE S Final Result PATRICE [address] [facility] Department [place] [address] * (ABNORMAL) Lipid panel (08/31/2024 10:58 AM WIRE ROLLER) Cholesterol 132 30 - 199 mg/dL Comment: Interpretive Data Ages < or = 19 years Acceptable: <170 mg/dL Borderline high: 170-199 mg/dL High: >or= 200 mg/dL Ages > or = 20 years Desirable: <200 mg/dL Borderline high: 200-239 mg/dL High: >or= 240 mg/dL Literature References: 1. Expert Panel on Integrated Guidelines for Cardiovascular Health and Risk Reduction in Children and Adolescents. Pediatrics 2011;128:S213 2. NCEP Expert Panel. Circulation 2004;110:227 Current Interpretive Data was last revised on 2018. Triglycerides 234(H) <=149 mg/dL PATRICE WISE Comment: Interpretive Data Ages < or = 9 years Acceptable: <75 mg/dL Borderline high: 75-99 mg/dL High: >or= 100 mg/dL Ages 10 to 20 years Acceptable: <90 mg/dL Borderline high: 90-129 mg/dL High: >or= 130 mg/dL Ages > or = 20 years Desirable: <150 mg/dL Borderline high: 150-199 mg/dL High: 200-499 mg/dL Very high: >or= 499 mg/dL Literature References: 1. Expert Panel on Integrated Guidelines for Cardiovascular Health and Risk Reduction in Children and Adolescents. Pediatrics 2011;128:S213 2. NCEP Expert Panel. Circulation 2004;110:227 Current Interpretive Data was last revised on 2018. HDL 33(L) >=40 mg/dL PATRICE WISE Comment: Interpretive Data Ages < or = 19 years Acceptable: >45 mg/dL Borderline low: 40-45 mg/dL Low: <40 mg/dL Ages > or = 20 years Desirable: >or= 60 mg/dL Low: <40 mg/dL Literature References: 1. Expert Panel on Integrated Guidelines for Cardiovascular Health and Risk Reduction in Children and Adolescents. Pediatrics 2011;128:S213 2. NCEP Expert Panel. Circulation 2004;110:227 Current Interpretive Data was last revised on 2018. LDL, calculated 61 <=129 mg/dL PATRICE WISE Comment: Interpretive Data Ages < or = 19 years Acceptable: <110 mg/dL Borderline high: 110-129 mg/dL High: >or= 130 mg/dL Ages > or = 20 years Optimal: <100 mg/dL Near optimal: 100-129 mg/dL Borderline high: 130-159 mg/dL High: >160 mg/dL Calculated using the Bulmaro LDL-C estimating equation. This equation was implemented on 2024. Prior to this date LDL-C was estimated using the Friedewald equation. Literature References: 1. Expert Panel on Integrated Guidelines for Cardiovascular Health and Risk Reduction in Children and Adolescents. Pediatrics 2011;128:S213 2. NCEP Expert Panel. Circulation 2004;110:227 3. Bulmaro Caldwell et al. KALEB Cardiol. 2019December 17;5(5):540-548. doi: 10.1001/[email or web address] Current Interpretive Data was last revised on 2024. Non-HDL Cholesterol 99 mg/dL PATRICE WISE Comment: Interpretive Data Ages < or = 19 years Acceptable: <120 mg/dL Borderline high: 120-144 mg/dL High: >145 mg/dL Ages > or = 20 years When triglycerides are >200 mg/dL, Non-HDL cholesterol is a secondary target of therapy with treatment goals that are 30 mg/dL greater than the LDL cholesterol target. Literature References: 1. Expert Panel on Integrated Guidelines for Cardiovascular Health and Risk Reduction in Children and Adolescents. Pediatrics 2011;128:S213 2. NCEP Expert Panel. Circulation 2004;110:227 Current Interpretive Data was last revised on 2018. Chol/HDL ratio 4 PATRICE WISE Blood 08/31/2024 10:5 8 AM WIRE ROLLER 08/31/2024 5:02 PM WIRE ROLLER us Macarena De Los Santos MD LAB BLOOD ORDERABLE S Final Result PATRICE WISE [address] Department [place] [address] * DIABETES EYE EXAM (08/28/2024) SCRIBED DIABETIC DILATED EYE EXAM Normal us Historical Provider HEALTH MAINTENANCE Final Result * CT abdomen pelvis with contrast (07/08/2023 3:20 PM WIRE ROLLER) Anatomical Region Laterality Modality Body N/A Computed Tomogra phy 07/08/2023 3:35 PM WIRE ROLLER Impressions 07/08/2023 3:35 PM WIRE ROLLER 1. No specific CT correlate for the reported 25 mm polyp within the cecum at the appendiceal orifice. If further anatomic delineation is necessary, consider further assessment with CT colonography Electronically signed by: Paige Melgar M.D. Narrative 07/08/2023 3:35 PM WIRE ROLLER EXAMINATION: CT of the abdomen and pelvis with intravenous contrast. TECHNIQUE: Computed axial tomographic images of the abdomen and pelvis were obtained with intravenous contrast according to standard protocol. There were no immediate complications after the intravenous administration of 100 cc optiray 350. COMPARISON: None HISTORY: Reported 25 mm cecal polyp at the appendiceal orifice on colonoscopy from 04/09/2023. FINDINGS: There is no specific CT correlate for the reported polyp within the cecum at the appendiceal orifice. Submucosal fatty deposition is present within the cecum and ascending colon, nonspecific, but may be due to obesity or prior inflammation. The appendix itself is normal. There is diverticulosis of the colon but no specific evidence of acute diverticulitis Mild bibasilar atelectasis. Aortic valve calcification is present suggestive of aortic stenosis. No pericardial effusion Diffuse low-attenuation of the liver suggestive of a background of steatosis. No focal liver lesion. Periportal space widening is present suggestive of liver chronic disease/fibrosis. The spleen, adrenal glands, pancreas appear normal. Bilateral simple appearing renal cysts without hydronephrosis Urinary bladder is mildly distended. The prostate gland is enlarged There is no free air or free fluid. There is atherosclerosis of the aortoiliac system but no aneurysm. No abdominal or pelvic lymphadenopathy No suspicious osseous lesion Procedure Note Paige Melgar MD - 07/08/2023 EXAMINATION: CT of the abdomen and pelvis with intravenous contrast. TECHNIQUE: Computed axial tomographic images of the abdomen and pelvis were obtained with intravenous contrast according to standard protocol. There were no immediate complications after the intravenous administration of 100 cc optiray 350. COMPARISON: None HISTORY: Reported 25 mm cecal polyp at the appendiceal orifice on colonoscopy from 04/09/2023. FINDINGS: There is no specific CT correlate for the reported polyp within the cecum at the appendiceal orifice. Submucosal fatty deposition is present within the cecum and ascending colon, nonspecific, but may be due to obesity or prior inflammation. The appendix itself is normal. There is diverticulosis of the colon but no specific evidence of acute diverticulitis Mild bibasilar atelectasis. Aortic valve calcification is present suggestive of aortic stenosis. No pericardial effusion Diffuse low-attenuation of the liver suggestive of a background of steatosis. No focal liver lesion. Periportal space widening is present suggestive of liver chronic disease/fibrosis. The spleen, adrenal glands, pancreas appear normal. Bilateral simple appearing renal cysts without hydronephrosis Urinary bladder is mildly distended. The prostate gland is enlarged There is no free air or free fluid. There is atherosclerosis of the aortoiliac system but no aneurysm. No abdominal or pelvic lymphadenopathy No suspicious osseous lesion IMPRESSION: 1. No specific CT correlate for the reported 25 mm polyp within the cecum at the appendiceal orifice. If further anatomic delineation is necessary, consider further assessment with CT colonography Electronically signed by: Paige Melgar M.D. us Harinder Huang MD IMG CT PROCEDURES Final Resu lt * COLONOSCOPY (04/09/2023 1:36 PM CDT) Anatomical Region Laterality Modality Other Narrative Procedure Note Joesph Baldwin MD - 04/09/2023 1:36 PM CDT GI ENDOSCOPY [facility] Patient Name: Chapo Song Procedure Date: 04/09/2023 1:36 PM Date of : 1950 Admit Type: Outpatient Age: 72 Gender: Male Attending MD: Joesph Baldwin M.D. Room: [facility] ENDOSCOPY ROOM 9 Note Status: Finalized Procedure: Colonoscopy Indications: Therapeutic procedure for known colon adenoma; Colonoscopy with large cecal polyp referred for attempt at EMR. Referring MD: Alan Little M.D., Macarena De Los Santos M.D. Providers: Joesph Baldwin M.D. Medicines: Monitored Anesthesia Care Complications: No immediate complications. Estimated blood loss:None. Estimated Blood Loss: Estimated blood loss: none. Procedure: Pre-Anesthesia Assessment: - The risks and benefits of the procedure and the sedation options and risks were discussed with the patient. All questions were answered and informed consent was obtained. - Immediately prior to administration ofmedications, the patient was re-assessed for adequacy to receive sedatives. - The anesthesia plan was to use monitoredanesthesia care (MAC). The benefits, risks and alternatives of theprocedure and sedation were discussed and informed consentwas obtained. All questions were answered. Please referto the signed informed consent document in the medical record. The scope was passed under direct vision.The [facility] [id number] endoscope was introducedthrough the anus and advanced to the cecum, identified by appendiceal orifice and ileocecal valve. The colonoscopy was performed without difficulty. The patient tolerated the procedure well. The qualityof the bowel preparation was evaluated using the BBPS ([place] Bowel Preparation Scale) with scores of:Right Colon = 2 (minor amount of residual staining, small fragments of stool and/or opaque liquid, but mucosa seen well), Transverse Colon = 3 (entire mucosaseen well with no residual staining, small fragments of stool or opaque liquid) and Left Colon = 3 (entire mucosa seen well with no residual staining, small fragments of stool or opaque liquid). The totalBBPS score equals 8. The quality of the bowelpreparation was good. The bowel preparation used was SUPREP via split dose instruction. The quality of the bowel preparation was good. Findings: The perianal and digital rectal examinations were normal. At the base of the cecum, there was a large, sessile, ~25 mm polyp growing into the appendiceal orifice. Given the obvious involvementof the appendiceal orifice, endoscopic resection is infeasible and wasnot attempted. Four semi-sessile polyps were found in the transverse colon andhepatic flexure. The polyps were 4 to 7 mm in size. These polyps were removed with a cold snare. Resection and retrieval were complete. Multiple small and large-mouthed diverticula were found in thesigmoid colon. Internal hemorrhoids were found during retroflexion. The hemorrhoids were moderate. Impression: - At the base of the cecum, there was a large, sessile, ~25 mm polyp growing into the appendiceal orifice. Given the obvious involvement of the appendiceal orifice, endoscopic resection is infeasible and was not attempted. - Four 4 to 7 mm polyps in the transverse colon andat the hepatic flexure, removed with a cold snare. Resected and retrieved. - Diverticulosis in the sigmoid colon. - Internal hemorrhoids. Recommendation: - Observe patient's clinical course followingtoday's Colonoscopy. - Refer patient to colorectal surgery formanagement of endoscopically unresectable cecal/appendiceal orifice polyp. - Repeat colonoscopy in 3 years pending surgical planning. - Resume home medications and diet. - Return to primary care physician as previously scheduled. - In the unusual situation that you developabdominal pain, bleeding or other significant problems in the days following this procedure please call my officeat [phone] to speak to my nurses. After hours and evenings please call [phone] andspeak to the GI fellow mechatronics technician. Please tell them that Dr. Baldwin did your procedure and that your wereinstructed to have the fellow call me or the physiciancovering for me to discuss the management of your condition.If you have an urgent problem, [facility] and have the ER doctor call myoffice during the day or the GI Fellow after hours and weekends to arrange admission or transfer to our facility. - Call my nurse Racheal Reid RN in the GI office at [phone] for your final pathology results in 7 days. Attending Participation: I personally performed the entire procedure. Electronically Signed By: Joesph Baldwin M.D. Joesph Baldwin M.D. 04/09/2023 2:16:50 PM . Number of Addenda: 0 Note Initiated On: 04/09/2023 1:36 PM Recognized by the [place] for promoting quality in endoscopy Joesph Baldwin MD ENDOSCOPY PROCEDURES Final Result * Hepatitis C antibody (04/13/2020 9:25 AM CDT) Hep C Ab NONREACT NONREACTIVE [facility] Comment: Siemens Yours FlorallyaurXP using ORION (chemiluminescent immunoassay) technology. NONREACTIVE: Antibodies to Hepatitis C not detected. This does not exclude early acute Hepatitis C infection, possibility of exposure to Hepatitis C, antibodies below detection limit, or to lack of antibody reactivity to the antigen used in this assay. EQUIVOCAL: Antibodies to Hepatitis C may or may not be present. Sample to be confirmed by real-time PCR method. REACTIVE: Antibodies to Hepatitis C detected.Sample to be confirmed by real-time PCR method. Blood specimen (specimen) 04/13/2020 9:25 AM CDT 04/13/2020 9:32 AM CDT Narrative Resulting Agency Comment CLI us BELINDA Barney Jr. LAB MICROBIOLOGY - GE NERAL ORDERABLES Final Result [id number] [place] [address], [facility] [phone] from Last 3 Months or Most Recently Relevant to Health Maintenance Insurance MEDICARE FOR LIFE FOR LIFE MEDICARE MEDICARE FOR LIFE Advance Directives For more information, please contact: [phone] * Full Code (Latest Code Status on File) Date Activated Date Inactivated Comments 07/16/2023 6:41 PM 07/18/2023 6:09 PM * Full Code Date Activated Date Inactivated Comments 04/09/2023 12:13 PM 04/09/2023 7:25 PM Care Teams Central Supply Clerk Relationship Specialty Start Date End Date Macarena De Los Santos MD [address] [place] [address] PCP - General Family Medicine 11/15/20 Joesph Baldwin MD [facility] [address] [place] [address] Referring Physician Gastroenterology 07/08/23 Alan Little MD [address] [facility] [address] [place] [id number] Consulting Physician Gastroenterology 07/11/23 Harinder Huang MD [address] [facility] [address] [place] [id number] Consulting Physician Colon and Rectal Surgery 07/19/23
--- OUTSIDE RECORDS SUMMARY | 2024-12-28 14:30 | XMS_ITS | Encounter Summary ---
Author Name [facility] Organization [facility] Address [address] [place] [address] Care Team Providers Care Access Registrar Name Role Phone TERESSA STOVALL Primary Care Provider Unavailabl e Selected Encounter This section includes the information on record at [place] for the Encounter. Date/Time Encounter Type Encounter Description Reason Provider Source Nov 24, 2024 09:00 AM OFFICE O/P EST HI 40 MIN PRIMARY CARE/MEDICINE ICD-10-CM H91.93 Unspecified hearing loss, bilateral SIA,[facility] Encounter Template Text not used by [place] Assessments - Encounter Diagnoses This section includes the primary and secondary diagnoses documented for the Encounter. Date/Time Primary/Secondary Diagnosis Diagnosis Name Provider Source Nov 24, 2024 10:02 AM PRIMARY Unspecified hearing loss, bilateral SIA,JULIAN D Pino [facility] Nov 24, 2024 10:02 AM SECONDARY Essential (primary) hypertension SIA,[facility] Nov 24, 2024 10:02 AM SECONDARY Unspecified asthma, uncomplicated SIA,[facility] Plan of Treatment: Future Appointments (+ 6 months) and Future Tests (+/- 45 days) The Plan of Treatment section includes future care activities for the patient from all [place] treatmentfacilities. This section includes future appointments and future orders which are active, pending or scheduled. Future Appointments This section includes appointments that were scheduled to occur 6 months from the date of the Encounter, up to a maximum of 20 appointments. The data comes from all [place] treatment facilities. Appointment Date/Time Appointment Type Appointme nt Facility Name Jan 27, 2025 07:45 AM AMBULATORY - SURGERY [facility] Lab Results: +/- 30 days of the encounter This section includes the Chemistry and Hematology Lab Results on record with [place] for the patient. Radiology Reports and Pathology Reports are provided separately, in subsequent sections. Lab Results This section contains the Chemistry/Hematology Results that were resulted 30 days before or 30 daysafter the date of the Encounter. Date/Time Source Result Type Result - Unit Interpretation Reference Range Specimen Type Comment Nov 24, 2024 08:55 AM [facility] GLUCOSE,BLOOD-poct (STL) BLOOD Specimen Type: BLOOD Comment: Test Performed by: [id number] Meter #: [id number] Ordering Provider: TERESSA STOVALL Report Released Date/Time: Nov 24, 2024 04:32 PM Reporting Lab: [address] [id number] Performing Lab: [address] [id number] GLUCOSE,BLOOD-poct (STL) 272 mg/dL H 72-99 Vital Signs: All taken on the encounter date This section contains inpatient and outpatient Vital Signs collected on the date of the Encounter. Date/Time Temperature Pulse Blood Pressure Respiratory Rate SP02 Pain Height Weight Body Mass Index Source Nov 24, 2024 09:02 AM 97.6 78 132/80 20 96 0 249.1 [facility] Social History: Smoking Status (Most current) and Tobacco Use (All prior to encounter date) This section includes the most current, and the historical, smoking and tobacco- related health factors from the [place] facility where the Encounter took place. Current Smoking Status This section includes the most current smoking, or tobacco-related health factor, from the [place] facility where the Encounter took place. Date/Time Current Smoking Status Comment Vince fernandez Nov 24, 2024 09:00 AM VA-TOBACCO NEVER U SED CIGARETTES [facility] Tobacco Use History This section includes a history of the smoking, or tobacco-related health factors, that were collected on or before the date of the Encounter. The data comes from the [place] facility where the Encounter took place. Date/Time Smoking Status/Tobac co Use Comment Facility Nov 24, 2024 09:00 AM AL-TOBACCO USE FOR WAYNE OTHER TYPE QUIT 50 YEARS AGO [facility] Encounter Notes: All associated encounter notes This section contains the clinical notes associated to the Encounter. Date/Time Encounter Note(s) Provider Source Nov 24, 2024 09:19 AM PRIMARY CARE INITI [place] EVALUATION NOTE: LOCAL TITLE: PRIMARY CARE PROVIDER NEW VISIT [facility] STANDARD TITLE: PRIMARY CARE INITIAL EVALUATION NOTE DATE OF NOTE: NOV 24, 2024@09:19 ENTRY DATE: NOV 24, 2024@09:19:33 AUTHOR: TERESSA STOVALL EXP COSIGNER: URGENCY: STATUS: COMPLETED Patient is 74 and RACE UNKNOWN Self Identified Gender - NONE FOUND Reason for visit:New Patient Chief Complaint: I need Hearing aid History of Present Illness: Mr. Song is a 74-year-old male Coming for his first clinic visit to establish care at the [facility] system He reported having hard of hearing service-connected for hearing loss and tinnitus like to get a hearing aids from VA he has been previously tested outside the VA for hearing which reports decrease in hearing He is followed by outside [facility] in [facility] For diabetes mellitus type 2 hypertension, asthma and history of sinus polyps sinus issue for many years seen and evaluated by ENT physician Dr. Raymond Medrano removed multiple right-sided nasal polyps now he reports breathing well Saw him annually Also have chronic kidney disease stage II followed by private hose tubing backer Dr. Iraj Ballesteros next appointment in July 15, 2025 He aware to avoid nephrotoxic drug including NSAIDs History of multiple colonic polyps initially 9 polyps were removed by Dr. Alan Little, could not remove others sent to another specialist removed for more polyps all been told benign he has colonoscopy done every 2 years Report has asthma using 2 inhalers Wixela as below claimed that initially his asthma started while he was in [place] during service 1977 - 1981 He is hard of hearing once the hearing aids from [place] already scheduled at on January 27, 2025 Problem List:1) TINNITUS NOS DM Type 2 HTN CKD 2 Diabetic Nephropathy Kidney Stome Asthma sinus issue RUBY Immunization: No data available Family History: Father seviver oif TB and cancer throat 2/2 industrial dust Heart attack decesed at 81 yrs old , was ssmoker too , Mother deseced 86 age heart attack Social History: Smoke 8 yrs when 22 yrs old , Alcohol -1-2 drink in month , x1 now remarrid again 2nd time in 2006 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 BRANCH(ES) OF SERVICE: [employer] SPECIFIC YEARS OF SERVICE: 08/1972- 08/1996 LOCATION OF SERVICE: ENVIRONMENTAL EXPOSURE: Medication Review: The essential med list for review which includes the patient's active VA prescriptions and if applicable, remote VA prescriptions, non-VA prescriptions, and discontinued VA prescriptions within the last 90 days and known allergies including local and remote allergies have been reviewed. Allergies:STRAWBERRIES, LATEX GLOVE Active and Recently Outpatient Medications (excluding Supplies): No Medications Found non VA medication list Hydrochlorothiazide 25 mg once a day Lisinopril 20 mg once a day Rosuvastatin 5 mg once a day Wixela inhaler 250/50 mcg Xhance 93 mcg/acutuation aerosol breath activate Centrum Men Vitamin Vit D3 2000 interana; units a day Tamsulosin 0.4mg a once a day Gabapentin 200mg once aday for neurpathy Trulicity 0.75 once a week Take Physical Exam VITALS (most recent, as listed in the electronic record): B/P: 132/80 (11/24/2024 09:02) Pulse: 78 (11/24/2024 09:02) Temperature: 97.6 F [36.4 C] (11/24/2024 09:02) Weight: 249.1 lb [112.99 kg] (11/24/2024 09:02) Height: BMI: BMI not available without height Pain: 0 (11/24/2024 09:02) (0-10 scale) Physical findings: Obesce built male walk w/o gait dist in NAD HEENT:nc, at [place] , , Scler/conj clear ,OP clear , bilateral ear canal clear tympanic membrane visualized decrease hearing to this for some Neck:Supple no jvd, no bruit Heart:S1 S2 , No S3 S4, RRR , No m/g/r appreciated Lungs:clear to auscultate no wheezing or rale , Abdomen:soft nt no HSM BS+ Ext:no leg edema Neuro:A & O x3 , no focal deficit Sensation grossly intact , Motor Strenght 5/5 all four ext Musculoskeletal: LS spine FROM ,SLR [place] , Bilateral Knee FROM Skin: Warm,to touch , dry , no obvious lesion or rash Assessment/Plan: Mr. Song is a 74-year-old male with multiple chronic medical conditions listed above will continue to follow-up with outside private physician as listed above for his multiple chronic medical condition blood pressure is well-controlled Asthma stable on inhalers He has multiple colonic polyps removed followed by GI every 2-year for colonoscopy Chronic kidney disease stage II followed by hose tubing backer outside [place] Hard of hearing service-connected for hearing loss is seen at [facility] cardiology for hearing aid CLINICAL REMINDERS COMPLETED RTC: 6 months Time spent on date of visit including face to face time, data review, and chartin minutes Avg Risk Colorectal Cancer Screen - L,N,P,PH: AVERAGE RISK colorectal cancer screening is due based on information available to this clinical reminder Patient has arranged or is choosing to arrange this care independent of and without assistance from this [place]. Comment: Followed by outside GI for colonoscopy every 2 years as above Influenza Immunization - L,N,P,PH,U: The patient has received the seasonal influenza vaccine for the current season at another location. Documented: INFLUENZA, UNSPECIFIED FORMULATION Historical Date Administered: 2023 Exact date unknown Information Source: FROM PATIENT'S RECALL /es/ Teressa Stovall MD Staff Physician Signed: 11/24/2024 10:02 TERESSA STOVALL [facility] Nov 24, 2024 09:03 AM NURSING NOTE: LOCAL TITLE: V15 PACT FACE TO FACE NOTE STL STANDARD TITLE: NURSING NOTE DATE OF NOTE: NOV 24, 2024@09:03 ENTRY DATE: NOV 24, 2024@09:03:57 AUTHOR: WILLY JOHNSTON EXP COSIGNER: URGENCY: STATUS: COMPLETED Provider Visit: Patient Identifiers : Full Name Date of Reason for visit: New Patient Do you have a history of any of the following? (check all that apply): Diabetes, Respiratory condition(s), Hypertension, Obesity, Other:type 2 kidney disease Surgeries (type(s) and date(s)): Have you been seen by a physician, VA or private, in the last year? Yes Name and contact information for provider: [facility] Have you been hospitalized or seen in an ER in the last year? Yes What hospital(s) or ERs and approximate date(s)? [facility] 08/2023 EPENDENDEMPTOMY Records request sent: Have you had a colonoscopy previously? Yes What location and approximate date(s)? [facility] 2023 Records request sent: Have you had a PAP smear previously? N/A Have you had a Mammogram previously? No Mode of Arrival: Ambulatory Allergy Review: STRAWBERRIES, LATEX GLOVE Allergy list reviewed and remains current. Recent Vital Signs: Temperature: 97.6 F [36.4 C] (11/24/2024 09:02) Pulse: 78 (11/24/2024 09:02) Respiration: 20 (11/24/2024 09:02) B/P: 132/80 (11/24/2024 09:02) Pain: 0 (11/24/2024 09:02) Wt: 249.1 lb [112.99 kg] (11/24/2024 09:02) Ht: BMI: BMI not available without height POX: 96% (11/24/2024 09:02) Blood sugar glucometer readin PERSONAL HEALTH INVENTORY Notes: No data available for PHI note titles PERSONAL HEALTH INVENTORY - MAP: No data available for PHI MAP What matters most to you in your life right now? --- [place]'s Response: MY Would you like to discuss any personal problem, family problem, alcohol use, drug use, or a mental or emotional illness? No Contact provided Primary Care phone number and encouraged to call if any questions or concerns. Review that after hours nurse line [phone] and emergency room are available 11/03 for patient use. Contact verbalized good understanding. No notification required for this note. Suicide Screen - V: C-SSRS Screening [place] Suicide Severity Rating Scale (C-SSRS) screener 1. Over the past month, have you wished you were or wished you could go to sleep and not wake up? No 2. Over the past month, have you had any actual thoughts of killing yourself? No 3. Over the past month, have you been thinking about how you might do this? Response not required due to responses to other questions. 4. Over the past month, have you had these thoughts and had some intention of acting on them? Response not required due to responses to other questions. 5. Over the past month, have you started to work out or worked out the details of how to kill yourself? Response not required due to responses to other questions. 6. If yes, at any time in the past month did you intend to carry out this plan? Response not required due to responses to other questions. 7. In your lifetime, have you ever done anything, started to do anything, or prepared to do anything to end your life (for example, collected pills, obtained a gun, gave away valuables, went to the roof but didn't jump)? No 8. If YES, was this within the past 3 months? Response not required due to responses to other questions. 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 /caregiver doesn't know of concerns about exposure to harmful substances while serving in the Armed Forces. Printed information was offered and contact information for local resources were provided if requested. No questions at this time [place]/caregiver was informed of local points of contact. Contact information for local resources: [facility] Registry Exam Program: [phone] Eligibility: [phone] [id number] Alcohol Use Screen (AUDIT-C) - V: Alcohol Screen: SCREEN FOR ALCOHOL (AUDIT-C) An alcohol screening test (AUDIT-C) was negative (score=1). 1. How often did you have a drink containing alcohol in the past year? Consider a drink to be a 12 ounce can or bottle of regular beer, 8 ounces of malt liquor, a 5 ounce glass of table wine, or a 1.5 ounce shot of liquor (like scotch, gin, or vodka). Monthly or less 2. How many drinks containing alcohol did you have on a typical day when you were drinking in the past year? One or two drinks 3. How often did you have six or more drinks on one occasion in the past year? Never Depression Screening - V: Perform PHQ-2 A PHQ-2 screen was performed. The score was 0 which is a negative screen for depression. Over the past two weeks, how often have you been bothered by the following problems? 1. Little interest or pleasure in doing things Not at all 2. Feeling down, depressed, or hopeless Not at all Homelessness/Food Insecurity Screen - DI,L,N,P,PH,PS,S,U: In the past 2 months, have you been living in stable housing that you own, rent, or stay in as part of a household? Yes - Living in stable housing. Are you worried or concerned that in the next 2 months you may NOT have stable housing that you own, rent, or stay in as part of a household? No - Not worried about housing near future The [place] reports the following: Within the past 12 months, you worried whether your food would run out before you got money to buy more. Never true Within the past 12 months, the food you bought just didn't last and you didn't have money to get more. Never true PTSD Screening - V: PC-PTSD-5 A PTSD screening test (PC-PTSD-5) was negative (score=0). IN THE PAST MONTH, have you ever had any experience that was so frightening, horrible or traumatic. For example: A serious accident or fire a physical or sexual assault or abuse An earthquake or flood A war Seeing someone be killed or seriously injured Having a loved one through homicide or suicide 1. Have you ever experienced this kind of event? NO 2. Had nightmares about the event(s) or thought about the event(s) when you did not want to? Response not required due to responses to other questions. 3. Tried hard not to think about the event(s) or went out of your way to avoid situations that reminded you of the event(s)? Response not required due to responses to other questions. 4. Been constantly on guard, watchful, or easily startled? Response not required due to responses to other questions. 5. [place] numb or detached from people, activities, or your surroundings? Response not required due to responses to other questions. 6. [place] guilty or unable to stop blaming yourself or others for the event(s) or any problems the event(s) may have caused? Response not required due to responses to other questions. Tobacco Use Screening - AT,DE,L,M,N,P,PH,PS,RT,S,U : The patient has never smoked cigarettes. The patient formerly used other types of tobacco. Comment: QUIT 50 YEARS AGO /ismael/ WILLY JOHNSTON LPN LICENSED PRACTICAL NURSE Signed: 11/24/2024 09:12 WILLY JOHNSTON [facility]
--- OUTSIDE RECORDS SUMMARY | 2024-12-28 14:30 | XMS_ITS | Referral Summary ---
Author Organization [address] Address [address] [place] [id number] Care Team Providers Care Geospatial Developer Name Role Phone Macarena De Los Santos MD Primary Care Provi nadia Joesph Baldwin MD Unavailable [phone] Alan Little MD Unavailable Harinder Huang MD Unavailable Encounters Date Type Department Care Team Description 12/14/2024 Orders Only [address] [phone] Macarena De Los Santos MD Type 2 diabetes mellitus with stage 2 chronic kidney disease, without long-term current use of insulin (HCC) (Primary Dx) 12/08/2024 Orders Only [address] [phone] Macarena De Los Santos MD Diabetic polyneuropathy associated with type 2 diabetes mellitus (HCC) 11/19/2024 Orders Only [address] [phone] Macarena De Los Santos MD 11/17/2024 Orders Only [address] [phone] Macarena De Los Santos MD 11/15/2024 Results Follow-Up [address] [phone] Macarena De Los Santos MD 11/13/2024 1:55 PM CDT Lab [facility] OP Lab [address] [place] [id number] Diabetic polyneuropathy associated with type 2 diabetes mellitus (HCC); Type 2 diabetes mellitus with stage 2 chronic kidney disease, without long-term current use of insulin (HCC); CKD (chronic kidney disease) stage 2, GFR 60-89 ml/min; Diabetic nephropathy (HCC) 11/13/2024 12:45 PM CDT Office Visit [address] [phone] Macarena De Los Santos MD Encounter for [...] 33.0 to 33.9 in adult 11/12/[address] [phone] Macarena De Los Santos MD Medical Question/Miscellaneou s 11/04/2024 Results Follow-Up [facility] Care at [address] [phone] Ema Mo NP 11/03/2024 12:47 PM CDT - 11/03/2024 11:59 PM CDT Hospital Encounter [address] [phone] Subacute cough Discharge Disposition: Discharge to home or self care 11/03/2024 Results Follow-Up [facility] at [address] [phone] Ema Mo NP 11/03/2024 12:45 PM CDT Ancillary Procedure [facility] Imaging at [address] [phone] Subacute cough 11/03/2024 12:30 PM CDT Office Visit [facility] Care at [address] [phone] Ema Mo NP Exacerbation of asthma, unspecified asthma severity, unspecified whether persistent (Primary Dx); Subacute cough 11/03/2024 Nurse Triage [address] [phone] Macarena De Los Santos MD 10/21/2024 Results Follow-Up [facility] Nephrology at [address] [place] [phone] Iraj Ballesteros MD CKD (chronic kidney disease) stage 2, GFR 60-89 ml/min (Primary Dx); Diabetic nephropathy (HCC) 10/21/2024 9:45 AM [employer]ER [employer] [facility] Lab [facility] Lab [address] [place] [id number] CKD (chronic kidney disease) stage 2, GFR 60-89 ml/min; Diabetic nephropathy (HCC) 10/06/2024 12:15 PM [employer]ER [employer] PACKER Telemedicine [facility] Medicine [address] [place] [phone] Macarena De Los Santos MD Acute non-recurrent sinusitis of other sinus (Primary Dx); Mild persistent asthma with acute exacerbation; Class 1 obesity due to excess calories with serious comorbidity and body mass index (BMI) of 33.0 to 33.9 in adult 10/05/2024 Telephone [facility] Family Medicine [address] [phone] Macarena De Los Santos MD Symptom Based Call from Last 3 Months Allergies Active Allergy Reactions Criticality Noted Date Comments Latex Rash Medium 03/01/2023 States turn hands red [place] Vomiting Low 12/31/2006 Medications cholecalciferol (VITAMIN D-3) [...] (two) times a day 1 each 3 Active dulaglutide (Trulicity) 0.75 mg/0.5 mL pen injector Inject 0.5 mL (0.75 mg total) under the skin once a week 2 mL 2 Active albuterol 2.5 mg /3 mL (0.083 [...] 09/19/2023 Assessment & Plan (09/19/2023 8:02 AM PICKER AND PACKER): New, but will be chronic We discussed [...] 09/19/2023 Assessment & Plan (09/19/2023 8:07 AM PICKER AND PACKER): Chronic, stable Continue lisinopril History of colon [...] 2026 Assessment & Plan (09/19/2023 7:48 AM PICKER AND PACKER): Chronic, improved Repeat colonoscopy in 3 years [...] 09/19/2022 Assessment & Plan (09/19/2023 7:46 AM PICKER AND PACKER): Chronic, stable Continue supportive care Assessment & Plan (10/18/2022 12:33 PM PICKER AND PACKER): Impression: Patient continues to complain of bilateral [...] basis. Assessment & Plan (09/19/2022 2:35 PM PICKER AND PACKER): Bilateral DP pulses, PT pulses not palpable, bilateral ABIs ordered for further evaluation, may just represent inframalleolar or micro vessel disease. Will follow-up in 2-3 weeks after his ABIs. Nephrolithiasis 12/27/2020 Assessment & Plan (09/19/2023 7:50 AM PICKER AND PACKER): Chronic, asymptomatic Continue to monitor Assessment & Plan (09/05/2022 8:30 AM PICKER AND PACKER): Asymptomatic Continue to follow with urology Assessment & Plan (06/15/2021 9:56 AM CDT): Asymptomatic Continue to follow with urology Assessment & Plan (12/27/2020 7:52 AM CDT): Will check uric acid level Will request records Further guidance once we have the results Call for questions or concerns Other cervical disc degenera tion, unspecified cervical region 12/15/2020 Assessment & Plan (09/19/2023 7:50 AM PICKER AND PACKER): Chronic, stable Continue supportive care Assessment & Plan (09/05/2022 8:31 AM PICKER AND PACKER): Chronic, improved Continue supportive care Assessment & Plan (06/15/2021 9:49 AM CDT): He has seen pain management and neurosurgery MRI/MRA completed 04/2021 at [facility] Encouraged to continue to follow with them for guidance Call to set up follow up to review his symptoms-no improvement Call for questions or concerns Spinal stenosis, cervical region 12/15/2020 Assessment & Plan (09/19/2023 7:51 AM PICKER AND PACKER): Chronic, stable Continue supportive care Assessment & Plan (09/05/2022 8:32 AM PICKER AND PACKER): Chronic, stable Continue supportive care Assessment & Plan (06/15/2021 9:57 AM CDT): He has seen pain management and neurosurgery MRI/MRA completed 04/2021 at [facility] Encouraged to continue to follow with them for guidance Call to set up follow up to review his symptoms-no improvement Call for questions or concerns Facet arthropathy, cervical 11/09/2020 Assessment & Plan (09/19/2023 7:48 AM PICKER AND PACKER): Chronic, improved Continue supportive care Assessment & Plan (09/05/2022 8:28 AM PICKER AND PACKER): Chronic, stable Continue supportive care Assessment & Plan (06/15/2021 9:53 AM CDT): He has seen pain management and neurosurgery MRI/MRA completed 04/2021 at [facility] Encouraged to continue to follow with them for guidance Call to set up follow up to review his symptoms-no improvement [facility] Call for questions or concerns Type 2 diabetes mellitus wit h stage 2 chronic kidney disease, without long-term current use of insulin 10/31/2020 Assessment & Plan (09/19/2023 8:07 AM PICKER AND PACKER): New, but will be chronic Reviewed risks of diabetes Eye exam completed recently, will review the results We discussed jardiance Encouraged healthy changes-low carb Further guidance once we have the results Assessment & Plan (07/24/2023 9:04 AM PICKER AND PACKER): Chronic, stable Continue low carb diet Follow up labs ordered Assessment & Plan (09/05/2022 8:29 AM PICKER AND PACKER): Chronic, worse We reviewed healthy changes like working as low carb diet with his Update me with changes Assessment & Plan (06/15/2021 9:54 AM CDT): Pt's last A1C was at goal Continue healthy changes Assessment & Plan (10/31/2020 10:04 AM CDT): A1C normal Encouraged low carb diet Call for questions or concerns Mixed hyperlipidemia 10/31/2020 Assessment & Plan (09/19/2023 7:49 AM PICKER AND PACKER): Chronic, improved Continue crestor Assessment & Plan (07/24/2023 9:04 AM PICKER AND PACKER): Chronic, stable Continue crestor Assessment & Plan (10/18/2022 12:30 PM PICKER AND PACKER): Impression: Chronic hyperlipidemia. Plan: Continue Crestor 5 mg. Assessment & Plan (09/19/2022 2:36 PM PICKER AND PACKER): Stable continue Crestor 5 mg Assessment & Plan (09/05/2022 8:26 AM PICKER AND PACKER): Chronic, uncontrolled Pt off medication currently secondary [...] 10/18/2020 Assessment & Plan (09/19/2023 7:46 AM PICKER AND PACKER): Chronic, stable Continue supportive care Assessment & Plan (09/05/2022 8:24 AM PICKER AND PACKER): Chronic, now improved Continue to monitor Update me with any changes Assessment & Plan (06/15/2021 9:51 AM CDT): Intermittent symptoms-improving He has seen cardiology-work up without a source Continue to monitor symptoms Assessment & Plan (10/18/2020 2:54 PM PICKER AND PACKER): Will check labs for possible pathology Consider imaging Will check EKG Change positions slowly Stay hydrated Follow up with TEJAL after the labs Call for questions or concerns Essential hypertension 04/15/2020 Assessment & Plan (09/19/2023 7:46 AM PICKER AND PACKER): Chronic, stable Continue current regimen Assessment & Plan (07/24/2023 9:03 AM PICKER AND PACKER): Chronic, stable Continue current regimen Continue healthy changes Assessment & Plan (10/18/2022 12:30 PM PICKER AND PACKER): Impression: Chronic hypertension. Plan: Continue lisinopril 20 mg and hydrochlorothiazide 25 mg. Assessment & Plan (09/19/2022 2:36 PM PICKER AND PACKER): Stable continue lisinopril 20 mg Assessment & Plan (09/05/2022 8:28 AM PICKER AND PACKER): Chronic, stable Continue current regimen Call for [...] provided. Assessment & Plan (10/06/2024 12:32 PM PICKER AND PACKER): Chronic, stable BMI Follow-up includes: nutrition counseling. Assessment & Plan (09/03/2024 7:25 AM PICKER AND PACKER): Chronic, stable BMI Follow-up includes: nutrition counseling. We discussed low carb given holding his jardiance Assessment & Plan (09/19/2023 7:47 AM PICKER AND PACKER): Chronic, stable BMI Follow-up includes: nutrition counseling. Assessment & Plan (07/24/2023 9:02 AM PICKER AND PACKER): Chronic, improved Continue a low carb diet BMI Follow-up includes: nutrition counseling. Assessment & Plan (09/05/2022 8:24 AM PICKER AND PACKER): BMI Follow-up includes: nutrition counseling. Assessment & Plan (06/15/2021 9:50 AM CDT): BMI Follow-up includes: nutrition counseling. Assessment & Plan (01/13/2020 2:44 PM CDT): BMI Follow-up includes: nutrition counseling. Mild persistent asthma with acute exacerbation 0 10/04/2017 Assessment & Plan (09/19/2023 7:49 AM PICKER AND PACKER): Chronic, stable Continue wixela, albuterol Assessment & Plan (09/05/2022 8:30 AM PICKER AND PACKER): Chronic, improved Continue inhalers as prescribed Update me with any changes Assessment & Plan (06/15/2021 9:56 AM CDT): Currently doing well with his inhalers Continue current regimen Lumbago 03/26/2017 Assessment & Plan (09/19/2023 7:48 AM PICKER AND PACKER): Chronic, stable Continue supportive care Assessment & Plan (09/05/2022 8:29 AM PICKER AND PACKER): Chronic, improved Continue supportive care Assessment & Plan (06/15/2021 9:55 AM CDT): Chronic discomfort He does not want medication, and is working on healthy changes Continue supportive care for now Arthritis 08/30/2016 Assessment & Plan (09/19/2023 7:45 AM PICKER AND PACKER): Chronic, stable Continue supportive care Assessment & Plan (09/05/2022 8:21 AM PICKER AND PACKER): Chronic Continue supportive care Update me if his s/sx change or worsen Assessment & Plan (06/15/2021 9:43 AM CDT): Currently on tylenol as needed Continue supportive care ED (erectile dysfunction) 08/30/2016 Assessment & Plan (09/19/2023 8:43 AM PICKER AND PACKER): Chronic, stable Follow up with urology Assessment & Plan (09/05/2022 8:27 AM PICKER AND PACKER): Chronic, uncontrolled He is not needing medication just yet Will reach out if he is interested Assessment & Plan (06/15/2021 9:52 AM CDT): Continue to follow with urology Update me with any changes Encounter for Medicare annual wellness exam 08/19 Overview (11/13/2024): Encouraged healthy diet and activity He is updating his living will/POA Health Maintenance: Last PSA: 09/10, 09/12- WNL Last colonoscopy: 04/10-repeat in 3 years Last Tdap: 08/2016 Last pneumonia: up to date Last Shingrix: zoster Last Flu: up to date Last COVID: up to date Assessment & Plan (11/13/2024 1:07 PM CDT): Encouraged healthy diet and activity He is updating his living will/POA Health Maintenance: Last PSA: 09/10, 09/12- WNL Last colonoscopy: 04/10-repeat in 3 years Last Tdap: 08/2016 Last pneumonia: up to date Last Shingrix: zoster Last Flu: up to date Last COVID: up to date Assessment & Plan (09/19/2023 7:45 AM PICKER AND PACKER): Encouraged healthy diet and activity He is updating his living will/POA Health Maintenance: Last PSA: 09/10- WNL Last colonoscopy: 2017, 04/10-repeat in 3 years Last Tdap: 08/2016 Last pneumonia: up todate Last Shingrix: zoster Last Flu: up to date Last COVID: up to date Assessment & Plan (09/05/2022 8:17 AM PICKER AND PACKER): Encouraged healthy diet and activity Wear sun screen, seat belts He is updating his living will/POA Health Maintenance: Last PSA: ordered Last colonoscopy: 2017- repeat on 5 years- referral placed Last [...] 08/30/2016 Assessment & Plan (09/19/2023 7:59 AM PICKER AND PACKER): Chronic, stable Continue replacement Assessment & Plan (09/05/2022 8:33 AM PICKER AND PACKER): Chronic, stable Continue replacement Assessment & Plan (06/15/2021 9:58 AM CDT): Lab ordered Obstructive sleep apnea 09/22/2015 Assessment & Plan (09/19/2023 7:52 AM PICKER AND PACKER): Chronic, uncontrolled He was not able to tolerate CPAP Encouraged to consider sleep medicine follow up Assessment & Plan (09/05/2022 8:31 AM PICKER AND PACKER): Chronic, uncontrolled He is off CPAP Encouraged to follow up with pulmonary-reviewed the risks of uncontrolled Assessment & Plan (06/15/2021 9:56 AM CDT): Not able to tolerate CPAP Encouraged to consider retesting 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 09/09/2015 Overview (04/15/2020): IMO load Assessment & Plan (09/19/2023 7:52 AM PICKER AND PACKER): Chronic, stable Continue supportive care Assessment & Plan (09/05/2022 8:32 AM PICKER AND PACKER): Chronic, stable Continue supportive care Assessment & Plan (06/15/2021 9:57 AM CDT): He has seen pain management and neurosurgery MRI/MRA completed 04/2021 at [facility] Encouraged to continue to follow with them for guidance Call to set up follow up to review his symptoms-no improvement Call for questions or concerns Assessment & Plan (10/18/2020 2:53 PM PICKER AND PACKER): xrays reviewed Will check MRI for further evaluation Consider physical therapy or pain management Continue supportive care Call for questions or concerns Spondylosis of lumbar region without myelopathy or radiculopathy 09/09/2015 Overview (04/15/2020): IMO load Assessment & Plan (09/19/2023 7:52 AM PICKER AND PACKER): Chronic, stable Continue supportive care Assessment & Plan (09/05/2022 8:33 AM PICKER AND PACKER): Chronic, improved Continue supportive care Update me if anything changes or worsen Assessment & Plan (06/15/2021 9:57 AM CDT): He has seen pain management and neurosurgery MRI/MRA completed 04/2021 at [facility] Encouraged to continue to follow with them for guidance Call to set up follow up to review his symptoms-no improvement Call for questions or concerns Cervical radiculopathy 07/13/2015 Assessment & Plan (09/19/2023 7:45 AM PICKER AND PACKER): Chronic, stable Continue supportive care Assessment & Plan (09/05/2022 8:22 AM PICKER AND PACKER): Chronic, improved Continue supportive care Update me if it changes or worsens Assessment & Plan (06/15/2021 9:48 AM CDT): He has seen pain management and neurosurgery MRI/MRA completed 04/2021 at [facility] Encouraged to continue to follow with them for guidance Call to set up follow up to review his symptoms-no improvement Call for questions or concerns Chronic gout without tophus 04/11/2015 Assessment & Plan (09/19/2023 7:47 AM PICKER AND PACKER): Chronic, improved No acute flares Continue to monitor Assessment & Plan (09/05/2022 8:23 AM PICKER AND PACKER): Chronic, asymptomatic Continue to monitor Assessment & [...] CDT): Continue to follow with pain management Immunizations Immunization Administration Dates Next Due COVID-19 [...] 08/19/1972 ZOSTER LIVE 05/08/2013 ZOSTER Recombinant 08/03/2023,06/05/2023 Social History Tobacco Use Types Packs/Day Years [...] on file Legal Sex Male 10:41 PM [employer]ER AND PACKER Gender Identity Male 10/18/2020 6:17 AM PICKER AND PACKER Sexual Orientation Straight 10/18/2020 6: 17 AM P[employer]ER AND PACKER Last Filed Vital Signs Vital Sign Reading [...] 11/13/2024 12:49 PM CDT Plan of Treatment Not on file Procedures Procedure Name Priority Date/Time Associated Diagnosis [...] Subacute cough EGFR Routine 10/21/2024 10:05 AM PICKER AND PACKER CKD (chronic kidney disease) stage 2, GFR 60-89 ml/min BASIC METABOLIC PANEL Routine 10/21/2024 10:05 AM P[employer]ER AND PACKER CKD (chronic kidney disease) stage 2, GFR 60-89 ml/min ALBUMIN CREATININE RATIO, URINE Routine 10/21/2024 10:05 AM P[employer]ER AND PACKER CKD (chronic kidney disease) stage 2, GFR 60-89 ml/min Diabetic nephropathy (HCC) LIPID PANEL Routine 08/31/2024 10:58 AM PICKER AND PACKER Type 2 diabetes mellitus with stage 2 chronic kidney disease, without long-term current use of insulin (HCC) PSA SCREEN Routine 08/31/2024 10:58 AM P[employer]ER AND PACKER Screening for prostate cancer HM DIABETES EYE EXAM Routine 08/28/2024 CT ABDOMEN PELVIS W CONTRAST Schedule Routine, Read Routine (OP Routine) 07/08/2023 3:20 PM PICKER AND PACKER Cecal polyp COLONOSCOPY 04/09/2023 1:36 PM CDT HEPATITIS C ANTIBODY Routine 04/13/2020 9:25 AM CDT Encounter for Medicare annual wellness exam Encounter for hepatitis C screening test for low risk patient from Last 3 Months or Most Recently Relevant to Health Maintenance Results * Vitamin B12 (11/13/2024 2:20 PM CDT) Pathologist [facility] Vitamin B12 810 230 - 1,250 pg/mL Comment:Testing performed by : [facility], [address] [place] [address]., [id number] Blood 11/13/2024 2:20 PM CDT 11/13/2024 6:23 PM CDT us Macarena De Los Santos MD LAB BLOOD ORDERABLE S Final Result PATRICE [address] [facility] Department [place] [address] * (ABNORMAL) Hemoglobin A1c (11/13/2024 2:13 PM CDT) Hgb A1C 7.3(H) 4.0 - 5.6 % Comment:Testing performed by : [facility], [address] [place] [address]., [id number] Estimated Average Glucose 163 mg/dL PATRICE LAWLER Comment: The ADA recommends reporting an estimated Average Glucose (eAG) with all Hemoglobin A1c results using the equation derived from a study of 507 normal and diabetic adults. Minority populations were underrepresented and children were not included. (Diabetes Care 31:9335-2031, 2008). The eAG is not equivalent to a fasting glucose. Testing performed by: [facility], [address] [place] [address]., [id number] Blood 11/13/2024 2:13 PM CDT 11/13/2024 6:23 PM CDT us Macarena De Los Santos MD LAB BLOOD ORDERABLE S Final Result [facility] [address] [facility] Department [place] [address] * XR Chest PA Lateral 2 Views [...] Bhavana Maddox M.D. FT T: Report ID: [id number] Reading Location: [id number] Procedure Note Bhavana Galarza MD - 11/03/2024 [...] Bhavana Maddox M.D. FT T: Report ID: [id number] Reading Location: [id number] Ema Mo NP IMG XR PROCEDURES Final Result * Influenza A/B, RSV, and COVID-19 PCR Nasopharyngeal (11/03/2024 12:47 PM CDT) Pathologist [facility] COVID-19 RNA Negative Negative [facility] Influenza A RNA Negative Negative C[facility] Influenza B RNA Negative Negative C[facility]ER RSV RNA Negative Negative [facility] Comment: Interpretive data: Testing performed by [facility]. This test is performed using the Diagnovus Xpert Xpress CoV-2/Flu/RSV plus assay. This is a multiplex, real-time reverse transcriptase PCR assay intended for the qualitative detection of nucleic acid from SARS-CoV-2, influenza A, influenza B, and respiratory syncytial virus. This assay has been cleared by the [place] Food and Drug administration. The performance characteristics have been verified by the [facility]. Results must be considered in the clinical context, and a negative result does not rule out infection. Interpretive Data last revised 2023 Nasopharyngeal 11/03/2024 12 :47 PM CDT 11/03/2024 7:28 PM CDT Narrative PATRICE - 11/03/2024 8:15 PM CDT Is the Patient experiencing symptoms consistent with COVID?->Yes Reason for testing?->Symptomatic Known exposure to confirmed or suspected COVID-19 case?->No Ema Mo NP LAB MICROBIOLOGY - GENERAL ORDeDbby ELLISON Final Result PATRICE [address] Department [place] [address] [place] * eGFR (10/21/2024 10:05 AM PICKER AND PACKER) eGFR 69 >=60 mL/min/1. 73 m2 Comment: [...] was last reviewed 2021. Testing performed by: [facility], [address] [place] [address]., [address] Blood 10/21/2024 10:0 5 AM [employer]ER AND PACKER 10/21/2024 10:12 AM P[employer]ER AND PACKER us Iraj Ballesteros MD LAB BLOOD ORDERABLES Final Re sult [facility] [address] [facility] Department [place] [address] * (ABNORMAL) Albumin Creatinine Ratio, Urine (10/21/2024 10:05 AM P[employer]ER AND PACKER) Pathologist [facility] Albumin Ur 122.0 mg/L Comment: Interpretive Data No reference range established. Current interpretive data was last revised 2018. Testing performed by: [address] [address] Creatinine Ur 141.0 mg/dL PATRICE Comment: Interpretive Data No reference range established. Current interpretive data was last revised 2018. Testing performed by: [address] [address] Albumin Creatinine Ratio, Ur 87(H) 1 - 29 mg/g PATRICE Comment:Testing performed by : [address] [address] Urine 10/21/2024 10:0 5 AM [employer]ER AND PACKER 10/21/2024 10:10 AM [employer]ER [employer] PACKER us Iraj Ballesteros MD LAB URINE ORDERABLES Final Re sult PATRICE [address] Department [place] [address] * (ABNORMAL) Basic metabolic panel (10/21/2024 10:05 AM P[employer]ER AND PACKER) Pathologist [facility] Sodium 139 135 - 145 mmol/L Comment:Testing performed by : [address] [address] Potassium, pl 3.8 3.3 - 4.9 mmol/L PATRICE Comment:Testing performed by : [address] [address] Chloride 100 97 - 110 mmol/L PATRICE Comment:Testing performed by : [address] [address] CO2 27 22 - 32 mmol/L PATRICE Comment:Testing performed by : [address] [address] Anion gap 12 2 - 15 mmol/L PATRICE Comment:Testing performed by : [address] [address] BUN 17 6 - 25 mg/dL PATRICE Comment:Testing performed by : [address] [address] Creatinine 1.13 0.80 - 1.30 mg/dL PATRICE Comment:Testing performed by : [address] [address] Glucose 222(H) 70 - 199 mg/dL PATRICE Comment: Interpretive Data Fasting glucose >/= 126 [...] was last revised 2022. Testing performed by: [address] [address] Calcium 9.9 8.5 - 10.3 mg/dL PATRICE Comment:Testing performed by : [address] [address] Blood 10/21/2024 10:0 5 AM [employer]ER AND PACKER 10/21/2024 10:12 AM P[employer]ER AND PACKER us Iraj Ballesteros MD LAB BLOOD ORDERABLES Final Re sult [facility] [address] [facility] Department [place] [address] * PSA screen (08/31/2024 10:58 AM P[employer]ER AND PACKER) PSA-Total 2.44 <=6.20 ng/mL Comment: Interpretive Data [...] revised 21. Blood 08/31/2024 10:5 8 AM P[employer]ER AND PACKER 08/31/2024 5:02 PM P[employer]ER AND PACKER us Macarena De Los Santos MD LAB BLOOD ORDERABLE S Final Result [facility] [address] Department [place] [address] * (ABNORMAL) Lipid panel (08/31/2024 10:58 AM PICKER AND PACKER) Cholesterol 132 30 - 199 mg/dL Comment: [...] 2018. LDL, calculated 61 <=129 mg/dL PATRICE Comment: Interpretive Data Ages < or = [...] 3. Bulmaro Caldwell et al. KALEB Cardiol. 2020 December 17;5(5):540-548. doi: 10.1001/[email or web address] Current Interpretive Data was last revised on 2024. Non-HDL Cholesterol 99 mg/dL PATRICE Comment: Interpretive Data Ages < or = [...] revised on 2018. Chol/HDL ratio 4 PATRICE Blood 08/31/2024 10:5 8 AM PICKER AND PACKER 08/31/2024 5:02 PM PICKER AND PACKER us Macarena De Los Santos MD LAB BLOOD ORDERABLE S Final Result [facility] [address] Department [place] [address] * DIABETES EYE EXAM (08/28/2024) SCRIBED DIABETIC DILATED EYE EXAM Normal us Historical Provider HEALTH MAINTENANCE Final Result * CT abdomen pelvis with contrast (07/08/2023 3:20 PM PICKER AND PACKER) Anatomical Region Laterality Modality Body N/A Computed Tomogra phy 07/08/2023 3:35 PM PICKER AND PACKER Impressions 07/08/2023 3:35 PM PICKER AND PACKER 1. No specific CT correlate for the reported 25 mm polyp within the cecum at the appendiceal orifice. If further anatomic delineation is necessary, consider further assessment with CT colonography Electronically signed by: Paige Melgar M.D. Narrative 07/08/2023 3:35 PM PICKER AND PACKER EXAMINATION: CT of the abdomen and pelvis [...] colonography Electronically signed by: Paige Melgar M.D. Harinder Huang MD IMG CT PROCEDURES Final Resu lt * COLONOSCOPY (04/09/2023 1:36 PM CDT) Anatomical Region Laterality Modality Other Narrative Procedure Note Joesph Baldwin MD - 04/09/2023 1:36 PM CDT [facility] Patient Name: Chapo Song Procedure Date: 04/09/2023 1:36 PM Date of : 1950 Admit Type: Outpatient Age: 72 Gender: Male Attending MD: Joesph Baldwin M.D. Room: [facility] 9 Note Status: Finalized Procedure: [...] The scope was passed under direct vision.The [facility] [id number] endoscope was introducedthrough the anus and advanced to the cecum, identified by appendiceal orifice and ileocecal valve. The colonoscopy was performed without difficulty. The patient tolerated the procedure well. The qualityof the bowel preparation was evaluated using the BBPS ([place] Bowel Preparation Scale) with scores of:Right Colon [...] following this procedure please call my officeat [phone] to speak to my nurses. After hours and evenings please call [phone] andspeak to the GI fellow implementation director. Please tell them that Dr. Baldwin did your procedure and that your wereinstructed to have the fellow call me or the physiciancovering for me to discuss the management of your condition.If you have an urgent problem, please go to [facility] emergency room and have the ER doctor call myoffice during the day or the GI Fellow after hours and weekends to arrange admission or transfer to our facility. - Call my nurse Racheal Reid RN in the GI office at [phone] for your final pathology results in 7 days. Attending Participation: I personally performed the entire procedure. Electronically Signed By: Joesph Baldwin M.D. Joesph Baldwin M.D. 04/09/2023 2:16:50 PM . Number of Addenda: 0 Note Initiated On: 04/09/2023 1:36 PM Recognized by the [employer] for promoting quality in endoscopy us Joesph Baldwin MD ENDOSCOPY PROCEDURES Final Result * Hepatitis C antibody (04/13/2020 9:25 AM CDT) Hep C Ab NONREACT NONREACTIVE [facility] [place] Comment: Siemens CentaurXP using ORION (chemiluminescent immunoassay) technology. NONREACTIVE: Antibodies [...] us BELINDA Barney Jr. LAB MICROBIOLOGY - NERMA ORDERABLES Final Result [facility] [place] [address] [place] [address], [facility] [phone] from Last 3 Months or Most Recently Relevant to Health Maintenance Insurance MEDICARE [facility] Address: [id number] [place] [address] FOR LIFE FOR LIFE MEDICARE MEDICARE FOR LIFE Advance Directives For more information, please contact: [phone] * Full Code (Latest Code Status on File) Date Activated Date Inactivated Comments 07/16/2023 6:41 PM 07/18/2023 6:09 PM * Full Code Date Activated Date Inactivated Comments 04/09/2023 12:13 PM 04/09/2023 7:25 PM Care Teams Geospatial Developer Relationship Specialty Start Date End Date Macarena De Los Santos MD [address] [place] [address] PCP - General Family Medicine 11/15/20 Joesph Baldwin MD [address] [place] [address] Referring Physician Gastroenterology 07/08/23 Alan Little MD [address] [place] [id number] Consulting Physician Gastroenterology 07/11/23 Harinder Huang MD [address] [place] [id number] Consulting Physician Colon and Rectal Surgery 07/19/23
--- OUTSIDE RECORDS SUMMARY | 2024-12-28 14:30 | XMS_ITS | Encounter Summary ---
Author Organization [facility] Address [address] [place] [address] Care Team Providers Care Boiler Operator Helper Name Role Phone Unavailable Primary Care Provider Unavailabl e Encounter Details Date Type Department Care Team (Late st Contact Info) Description 12/27/2021 Lab Requisition [facility] Care DermPath Lab [address] [place] [id number] Fabian Zaman MD [address] [facility] [address] [place] [address] Social History Tobacco Use Types Packs/Day Years Used Date Smoking Tobacco: Former Cigarettes Smokeless Tobacco: Never Alcohol Use Standard Drinks/Week Comments Yes 1.7 (1 standard drink = 0.6 oz p ure alcohol) Sex and Gender Information Value Date Recorded Sex Assigned at Not on file Legal 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 Gender Identity Not on file Sexual Orientation Not on file documented as of this encounter Plan of Treatment Not on file documented as of this encounter Procedures Procedure Name Priority Date/Time Associated Diagnosis Comments DERMATOPATHOLOGY Routine 12/25/2021 12:0 0 AM CDT documented in this encounter Results * DERMATOPATHOLOGY (12/25/2021 12:00 AM CDT) Case Report Dermatopathology Report Case: [id number] Authorizing Provider: Fabian Zaman MD Collected: 12/25/2021 12:00 AM Ordering Location: [facility] DermPath Lab Received: 12/27/2021 03:16 PM Pathologist: Jumana Street MD Specimens: A) - Skin, right upper back B) - Skin, left upper anterior thigh 12:51 PM T DERMATOPATHOLOGY LABORATORY Final Diagnosis Specimen A. SKIN, right upper back: SEBORRHEIC KERATOSIS, RETICULATED (ADENOID) TYPE (L82.1) NOT PRESENT AT SAMPLED MARGIN Specimen B. SKIN, left upper anterior thigh: BENIGN VERRUCOUS KERATOSIS, INFLAMED (L82.1) NOT PRESENT AT SAMPLED MARGIN 12:51 PM T DERMATOPATHOLOGY LABORATORY Clinical History A-B: SK vs mal. Check margins. 12:51 PM CDT DERMATOPATHOLOGY LABORATORY Gross Description Specimen A: Received is one formalin filled container labeled with the patient's name and designated right upper back. The specimen consists of a shave biopsy measuring [id number]. The margin is inked green. Jar 0. Specimen B: Received is one formalin filled container labeled with the patient's name and designated left upper anterior thigh. The specimen consists of a shave biopsy measuring [id number]. The margin is inked green. Jar 0. 12:51 PM CDT DERMATOPATHOLOGY LABORATORY Microscopic Description Specimen A. SKIN, right upper back: There is reticulated hyperplasia of the epidermis with overlying delicate hyperorthokeratosis . Hyperpigmentation is present in the basaloid cells. This lesion is not present at the sampled margin of the specimen. Specimen B. SKIN, left upper anterior thigh: Sections show hyperkeratosis, papillomatosis, hypergranulosis, and acanthosis. Inflammatory cells are present within the dermis. These histological findings can be seen in a verruca vulgaris or a seborrheic keratosis. This lesion is not present at the sampled margin of the specimen. 12:51 PM T DERMATOPATHOLOGY LABORATORY Disclaimer An external and internal positive and negative controls are appropriate for the histochemical, immunohistochemical and immunofluorescence stain(s) in this case (if any), except where stated explicitly. The performance characteristics of the stain(s) cited in this report were developed and its performance characteristic determined by the Dermatopathology Laboratory at [facility], directed by Dr. Fly Dixon. These tests need not be, and therefore are not, approved by the [place] Food and Drug Administration. The tests are used for clinical purposes. Billing Codes Specimen Charges Stain Charges 92844 33886 1 1 2 12:51 PM CDT DERMATOPATHOLOGY LABORATORY Embedded Images 2 12:51 PM CDT DERMATOPATHOLOGY LABORATORY Pathology/Cytology TISSUE SPECIMEN FROM SKIN / Unknown 12/25/2021 12/27/2021 3:16 PM CDT Miscellaneous samples (specimen) TISSUE SPECIMEN FROM SKIN / Unknown 12/25/2021 12/27/2021 3:16 PM CDT us Fabian Zaman MD LAB - PATHOLOGY/CYTOLOGY ORD ERABLES Final Result DERMATOPATHOLOGY LABORATORY [facility] - Department of Dermatology [address], [address] [phone] documented in this encounter Visit Diagnoses Not on filedocumented in this encounter
== END 2024-12-28 14:22 | disposition home or self-care (01) ==
PROVIDERS: Visit Provider Orthopaedic Surgery
DX: M19.011 Primary osteoarthritis, right shoulder (principal)
CPT/HCPCS: 73030